=== PATIENT | female | born 1945 | race Caucasian/White ===

== ENCOUNTER → 2017-10-02 11:03 | Outpatient (CLI) | payer MEDICARE, OTHER, SELFPAY ==
--- NOTE | 2017-10-02 11:07 | DI.NM.S_ITS ---
PROCEDURE: [place] BONE SCAN WHOLE BODY RADIOPHARMACEUTICAL: 20.5 mCi Tc-99m MDP IV. INDICATIONS: BREAST CANCER TECHNIQUE: Delayed whole-body scintigrams were obtained approximately 3-4 hours after intravenous injection of radiotracer. Anterior and posterior views were acquired from vertex to feet. COMPARISON: [place], [place], BONE SCAN WHOLE BODY, 09/12/2009, 11:58. [place], BONE SCAN WHOLE BODY, 11/23/2013, 12:29. [facility], CT, NECK/CHEST/ABD/PEL W CONTRAST, 11/08/2015, 9:50. [facility], CT, CT CHEST ABD PEL W CON, 10/02/2017, 12:14. [place], BONE SCAN WHOLE BODY, 04/20/2014, 12:56. [place], BONE SCAN WHOLE BODY, 11/08/2015, 12:08. FINDINGS: No areas of relatively intense radiotracer uptake identified. Relatively subtle radiotracer uptake noted in the shoulders bilaterally, the lower lumbar spine, the left knee in the right mid foot compatible with osteoarthritis. No abnormal soft tissue uptake. Echogenic kidneys is normal and symmetric. IMPRESSION: No osseous metastatic disease. Dictated by: Aye Guzmán MD, PhD on 10/02/2017 at 15:10 Approved by: Aye Guzmán MD, PhD on 10/02/2017 at 15:14
--- NOTE | 2017-10-02 11:32 | DI.CT.S_ITS ---
PROCEDURE: CT CHEST ABD PEL W CON INDICATIONS: follow up. Breast cancer. TECHNIQUE: After the administration of oral and intravenous contrast, 5 mm thick sections acquired from the lung apices to the symphysis. 5 mm coronal and sagittal reformats were performed, with additional 7 mm coronal MIP reformats through the lungs. For radiation dose reduction, the following was used: automated exposure control, adjustment of mA and/or kV according to patient size. COMPARISON: [facility], CT, CHEST/ABD/PEL WITH CONTRAST, 04/20/2014, 9:02. FINDINGS: Image quality: Excellent. CHEST: Lungs and pleura: There is biapical scarring. No pleural effusions or pneumothorax. No discrete other nodule or mass is seen. Central and peripheral airways appear patent and normal in caliber. Mediastinum: Heart size is normal. No pericardial effusion. No mediastinal or hilar adenopathy by size criteria. Mild ascending thoracic aortic aneurysm is noted and measures up to 4.1 cm in largest AP diameter. No aortic dissection. The ascending thoracic aorta is normal in size. Pulmonary arteries are normal in size. No hiatal hernia. Chest wall: No axillary or supraclavicular adenopathy by size criteria. Surgical clips are noted in left axilla and left anterior chest wall, unchanged from prior study. Thyroid gland is within normal limits. ABDOMEN: Solid organs: Liver is normal in size. Mild hepatic steatosis is seen. No discrete hepatic lesion. Gallbladder is within normal limits. Biliary system is non dilated. Pancreas enhances normally. Spleen is normal in size and enhancement. No adrenal nodules. Kidneys demonstrate normal size and enhancement, without hydronephrosis. Peritoneum and bowel: Bowel loops demonstrate normal wall thickness and caliber. No free fluid or air. Appendix is visualized and is within normal limits. Nodes and vessels: No retroperitoneal or mesenteric adenopathy by size criteria. Aorta and inferior vena cava are normal in size. Miscellaneous: No ventral hernias. PELVIS: Genitourinary: Bladder wall thickness is normal. Miscellaneous: No inguinal hernias or adenopathy. Bones: No suspicious bony lesions. No vertebral body compression fractures. IMPRESSION: 1. No evidence of metastatic disease in chest, abdomen or pelvis. No evidence of adenopathy. 2. Biapical scarring. Bilateral lungs are otherwise clear. 3. Mild hepatic steatosis. No discrete hepatic lesion. No structural. No free fluid or free air. Dictated by: Jose Juan Hand M.D. on 10/02/2017 at 16:26 Approved by: Jose Juan Hand M.D. on 10/02/2017 at 16:32
--- NOTE | 2017-10-02 11:32 | DI.CT.S_ITS ---
PROCEDURE: CT SOFT TISSUE NECK W CON INDICATIONS: follow up TECHNIQUE: After the administration of intravenous contrast, 3.0 mm axial sections acquired from the sella to the aortic arch. Additional oblique axial 3.0 mm sections acquired through the pharynx. 3 mm thick coronal and sagittal reformats were generated. For radiation dose reduction, the following was used: automated exposure control. COMPARISON: [facility], [place], [place] BONE SCAN WHOLE BODY, 10/02/2017, 14:41. [facility], CT, NECK/CHEST/ABD/PEL W CONTRAST, 11/18/2016, 11:07. [place], [place], BONE SCAN WHOLE BODY, 11/08/2015, 12:08. [facility], CT, NECK/CHEST/ABD/PEL W CONTRAST, 11/08/2015, 9:50. [facility], CT, CT CHEST ABD PEL W CON, 10/02/2017, 12:14. FINDINGS: Image quality: Excellent. Lymph nodes: No enlarged lymph nodes seen throughout the neck. Vessels: Visualized vasculature appears patent. Partially visualized ascending thoracic aorta aneurysmal dilation measuring 40 mm, unchanged. Neck spaces: The oropharynx, nasopharynx, and pharynx demonstrate no mucosal lesions. The vocal cords, false vocal cords, pyriform sinuses, epiglottis, vallecula, and tongue base all appear normal. Extramucosal spaces appear unremarkable. Glands: The parotid and submandibular glands appear normal. Thyroid gland demonstrates stable low attenuation right lobe focus. Miscellaneous: Visualized brain and orbits appear normal. Lung apices appear clear. Superficial soft tissues appear normal. Bones: No suspicious bony lesions. Visualized sinuses and mastoids appear unremarkable. IMPRESSION: 1. Stable interval exam. No metastatic disease. 2. Partially visualized ascending thoracic artery aneurysm, unchanged. Dictated by: Kathy Silva M.D. on 10/02/2017 at 15:50 Approved by: Kathy Silva M.D. on 10/02/2017 at 16:07
== END ==
PROVIDERS: PCP Family Medicine; Visit Provider Internal Medicine Hematology & Oncology
DX: C50.911 Malignant neoplasm of unspecified site of right female breast (principal); Z17.0 Estrogen receptor positive status [ER+]; C77.0 Secondary and unspecified malignant neoplasm of lymph nodes of head, face and neck; C77.3 Secondary and unspecified malignant neoplasm of axilla and upper limb lymph nodes; I71.2 Thoracic aortic aneurysm, without rupture; K76.0 Fatty (change of) liver, not elsewhere classified
CPT/HCPCS: 70491; 71260; 74177; 78306; A9503; Q9967

== ENCOUNTER → 2018-06-25 09:32 | Outpatient (CLI) | payer MEDICARE, OTHER, SELFPAY ==
--- NOTE | 2018-06-25 09:34 | DI.CT.S_ITS ---
PROCEDURE: CT CHEST ABD PEL W CON INDICATIONS: breast cancer TECHNIQUE: After the administration of oral and intravenous contrast, 5 mm thick sections acquired from the lung apices to the symphysis. 5 mm coronal and sagittal reformats were performed, with additional 7 mm coronal MIP reformats through the lungs. For radiation dose reduction, the following was used: automated exposure control, adjustment of mA and/or kV according to patient size. COMPARISON: [facility], CT, CT CHEST ABD PEL W CON, 10/02/2017, 12:14. FINDINGS: Image quality: Excellent. CHEST: Lungs and pleura: No acute airspace opacities. Mild left anterolateral subpleural and pleural irregularity consistent with radiation changes, similar. No pleural effusions or pneumothorax. Central and peripheral airways appear patent and normal in caliber. Mediastinum: Heart size is normal. No pericardial effusion. No mediastinal or hilar adenopathy by size criteria. Thoracic aorta and central pulmonary arteries are normal in size. Esophagus is normal in caliber. No hiatal hernia. Chest wall: The left Mediport is present. A few left axillary surgical clips are seen. There are surgical changes in the left breast tissue and coarse calcifications suggesting fat necrosis in the lumpectomy bed. No unusual chest wall mass. No axillary or supraclavicular adenopathy by size criteria. Thyroid gland is normal. ABDOMEN: Solid organs: Liver is normal in size and enhancement. Gallbladder is normal. Biliary system is non dilated. Pancreas enhances normally. Spleen is normal in size and enhancement. No adrenal nodules. Kidneys demonstrate normal size and enhancement, without hydronephrosis. Peritoneum and bowel: Bowel loops demonstrate normal wall thickness and caliber. No free fluid or air. Nodes and vessels: No retroperitoneal or mesenteric adenopathy by size criteria. Aorta and inferior vena cava are normal in size. Miscellaneous: No ventral hernias. PELVIS: Genitourinary: Bladder wall thickness is normal. Mild pelvic floor laxity. Miscellaneous: No inguinal hernias or adenopathy. Bones: No suspicious bony lesions. No vertebral body compression fractures. IMPRESSION: 1. No evidence of metastatic disease in the chest, abdomen, or pelvis. 2. Surgical changes to the left chest wall without evidence of recurrent disease. Dictated by: Gricelda Patterson M.D. on 06/25/2018 at 15:53 Approved by: Gricelda Patterson M.D. on 06/25/2018 at 16:00
--- NOTE | 2018-06-25 09:34 | DI.NM.S_ITS ---
PROCEDURE: [place] BONE SCAN WHOLE BODY RADIOPHARMACEUTICAL: 21.70 mCi Tc-99m MDP IV. INDICATIONS: breast cancer TECHNIQUE: Delayed whole-body scintigrams were obtained approximately 3-4 hours after intravenous injection of radiotracer. Anterior and posterior views were acquired from vertex to feet. COMPARISON: [facility], CT, NECK/CHEST/ABD/PEL W CONTRAST, 11/18/2016, 11:07. [facility], CT, CT CHEST ABD PEL W CON, 06/25/2018, 11:37. [place], [place], [place] BONE SCAN WHOLE BODY, 10/02/2017, 14:41. FINDINGS: There is increased uptake in the lower lumbar spine (L4-L5 and L5-S1), correlating with CT finding of degenerative disc and facet disease. Increased uptake in the femoral heads bilaterally are noted, with no definitive findings on CT. The finding is, however, appears stable. No lesions are identified in skull, sternum, clavicles, scapulae, ribs, bony pelvis, and visualized shafts of the long bones. There is low level increased uptake in cervical, thoracic and lumbar spine with distribution indistinguishable from degenerative disc and facet disease; early metastasis to spine could be obscured by degenerative changes. There are foci of increased periarticular activity involving shoulders, sternoclavicular joints, elbows, wrists, hips, SI joints and left knees, compatible with degenerative/arthritic changes. IMPRESSION: 1. Stable bone scan. No definitive bone scan findings to suggest osseous metastasis. Dictated by: Armand Gudino M.D. on 06/25/2018 at 17:08 Approved by: Armand Gudino M.D. on 06/25/2018 at 17:59
== END ==
PROVIDERS: PCP Family Medicine; Visit Provider Internal Medicine Hematology & Oncology
DX: C50.919 Malignant neoplasm of unspecified site of unspecified female breast (principal); M51.36 Other intervertebral disc degeneration, lumbar region; M51.37 Other intervertebral disc degeneration, lumbosacral region
CPT/HCPCS: 71260; 74177; 78306; A9503; Q9967

== ENCOUNTER → 2018-10-29 13:02 | Outpatient (CLI) | payer MEDICARE, OTHER, SELFPAY | PROVIDERS: PCP Family Medicine; Visit Provider Internal Medicine Hematology & Oncology | DX: M85.851 Other specified disorders of bone density and structure, right thigh (principal); M85.852 Other specified disorders of bone density and structure, left thigh; M85.88 Other specified disorders of bone density and structure, other site; Z78.0 Asymptomatic menopausal state; Z85.3 Personal history of malignant neoplasm of breast | CPT/HCPCS: 77080 ==

== ENCOUNTER → 2019-02-11 10:30 | Outpatient (CLI) | payer MEDICARE, OTHER, SELFPAY ==
--- NOTE | 2019-02-11 10:32 | DI.CT.S_ITS ---
PROCEDURE: CT ANGIO CHEST INDICATIONS: shortness of breath, PE? TECHNIQUE: After the administration of intravenous contrast, 2 mm thick sections acquired from the pulmonary apices to the posterior costophrenic angles. 3-dimensional maximum intensity projection (MIP) coronal and sagittal reformats were then acquired through the thorax. For radiation dose reduction, the following was used: automated exposure control, adjustment of mA and/or kV according to patient size. COMPARISON: [facility], CT, CT CHEST ABD PEL W CON, 06/25/2018, 11:37. FINDINGS: Image quality: Excellent. Pulmonary arteries: Pulmonary arteries are normal in size, and demonstrate no intraluminal filling defects to suggest central pulmonary embolism. Lungs and pleura: The atelectasis noted in the dependent portions of the lungs. No pleural effusions or pneumothorax. Central and peripheral airways are patent. Mediastinum: Heart is enlarged without pericardial effusion. No mediastinal or hilar adenopathy. Thoracic aorta is normal in caliber and enhancement. Esophagus is normal in caliber, without hiatal hernia. Bones and chest wall: Postsurgical changes noted in the left breast and left axilla. Left chest wall Port-A-Cath noted. No suspicious bony lesions. Ribs and thoracic spine appear intact throughout. Thyroid gland is within normal limits. No axillary or supraclavicular adenopathy. Abdomen: Visualized upper abdominal solid organs appear normal in the early arterial phase of enhancement. IMPRESSION: 1. No pulmonary embolus. 2. No lung consolidation or pleural effusions. Dictated by: Aye Guzmán MD, PhD on 02/11/2019 at 11:39 Approved by: Aye Guzmán MD, PhD on 02/11/2019 at 11:44
== END ==
PROVIDERS: PCP Family Medicine; Visit Provider Internal Medicine Hematology & Oncology
DX: R06.02 Shortness of breath (principal); C50.919 Malignant neoplasm of unspecified site of unspecified female breast
CPT/HCPCS: 71275; Q9967

== ENCOUNTER → 2019-06-15 09:31 | Outpatient (CLI) | payer MEDICARE, OTHER, SELFPAY ==
--- NOTE | 2019-06-15 09:33 | DI.NM.S_ITS ---
PROCEDURE: [place] BONE SCAN WHOLE BODY RADIOPHARMACEUTICAL: 21.3 mCi Tc-99m MDP IV. INDICATIONS: metastatic breast cancer TECHNIQUE: Delayed whole-body scintigrams were obtained approximately 3-4 hours after intravenous injection of radiotracer. Anterior and posterior views were acquired from vertex to feet. COMPARISON: [facility], , L-SPINE W&WO CONTRAST, 04/21/2017, 11:58. [facility], CT, CT CHEST ABD PEL W CON, 06/25/2018, 11:37. [facility], CT, CT CHEST ABD PEL W CON, 10/02/2017, 12:14. [place], [place], [place] BONE SCAN WHOLE BODY, 10/02/2017, 14:41. [place], [place] BONE SCAN WHOLE BODY, 06/25/2018, 13:12. [facility], CT, CT CHEST ABD PEL W CON, 06/15/2019, 10:28. FINDINGS: Hyperostosis frontalis. Foci of increased uptake in the lower lumbar appear unchanged correlating with CT finding of degenerative disc and facet disease. Increased uptake in the femoral heads appears stable. No lesions are identified in skull, sternum, clavicles, scapulae, ribs, bony pelvis, and visualized shafts of the long bones. There is low level increased uptake in cervical, thoracic and lumbar spine with distribution indistinguishable from degenerative disc and facet disease; early metastasis to spine could be obscured by degenerative changes. There are foci of increased periarticular activity involving shoulders, sternoclavicular joints, elbows, IMPRESSION: Stable bone scan. No definitive findings to suggest osseous metastasis. Dictated by: Armand Gudino M.D. on 06/15/2019 at 15:47 Approved by: Armand Gudino M.D. on 06/15/2019 at 16:14
--- NOTE | 2019-06-15 10:43 | DI.CT.S_ITS ---
PROCEDURE: CT CHEST ABD PEL W CON INDICATIONS: metastatic breast cancer STAGING TECHNIQUE: After the administration of oral and intravenous contrast, 5 mm thick sections acquired from the lung apices to the symphysis. 5 mm coronal and sagittal reformats were performed, with additional 7 mm coronal MIP reformats through the lungs. For radiation dose reduction, the following was used: automated exposure control, adjustment of mA and/or kV according to patient size. COMPARISON: [facility], [place], [place] BONE SCAN WHOLE BODY, 06/25/2018, 13:12. [facility], CT, CT CHEST ABD PEL W CON, 06/25/2018, 11:37. [facility], CT, CT ANGIO CHEST, 02/11/2019, 10:54. FINDINGS: Image quality: Excellent. CHEST: Lungs and pleura: No acute airspace opacities. A 3 mm subpleural right upper lobe pulmonary nodule is stable. There is minimal postradiation fibrosis in the anterior aspect of the left upper lobe. No pleural effusions or pneumothorax. Central and peripheral airways appear patent and normal in caliber. Mediastinum: Heart size is normal. No pericardial effusion. No mediastinal or hilar adenopathy by size criteria. Borderline aneurysmal dilatation of the ascending aorta, measuring 4.1 cm. This is not significantly changed. Central pulmonary arteries are normal in size. Esophagus is normal in caliber. No hiatal hernia. Chest wall: No axillary or supraclavicular adenopathy by size criteria. Thyroid gland is unremarkable. Port-A-Cath in satisfactory position. Postsurgical findings in the left breast. ABDOMEN: Solid organs: Liver is normal in size and enhancement. Gallbladder is unremarkable. Biliary system is non dilated. Pancreas enhances normally. Spleen is normal in size and enhancement. No adrenal nodules. Kidneys demonstrate normal size and enhancement, without hydronephrosis. Peritoneum and bowel: Bowel loops demonstrate normal wall thickness and caliber. No free fluid or air. Nodes and vessels: No retroperitoneal or mesenteric adenopathy by size criteria. Aorta and inferior vena cava are normal in size. Miscellaneous: No ventral hernias. PELVIS: Genitourinary: Bladder wall thickness is normal. Miscellaneous: No inguinal hernias or adenopathy. Bones: There is a lucent lesion in the left side of the S1 vertebral body measuring approximately 1.6 cm in diameter which was not identifiable on the previous study, possibly representing a metastatic lesion. Alternatively, it may potentially represent development of a large subchondral cyst. There is a Schmorl's node in the right superior aspect of the L5 vertebral body which has increased in size since the previous study. This is not a metastatic lesion. A subtle lucent lesion in the medial left iliac bone on image 95/2 is stable, and is unlikely a metastatic lesion. No other bony lesions identified. No vertebral body compression fractures. IMPRESSION: 1. Stable 3 mm pulmonary nodule, right upper lobe. 2. No evidence of metastatic disease in the chest. 3. Development of a lucent area in the S1 vertebral body measuring 1.6 cm, possibly representing a metastatic lesion or a subchondral cyst. 4. No other evidence of metastatic disease in the abdomen and pelvis. Comment: It is noted that the patient is scheduled to undergo a whole-body bone scan later today. Dictated by: Vernon Luo M.D. on 06/15/2019 at 10:43 Approved by: Vernon Luo M.D. on 06/15/2019 at 11:03
== END ==
PROVIDERS: PCP Family Medicine; Referring Provider Internal Medicine Hematology & Oncology; Visit Provider Internal Medicine Hematology & Oncology
DX: C50.011 Malignant neoplasm of nipple and areola, right female breast (principal); R91.1 Solitary pulmonary nodule; M89.9 Disorder of bone, unspecified; M51.46 Schmorl's nodes, lumbar region; Z17.0 Estrogen receptor positive status [ER+]
CPT/HCPCS: 71260; 74177; 78306; A9503; Q9967

== ENCOUNTER → 2019-08-06 07:47 | Outpatient (CLI) | payer MEDICARE, OTHER, SELFPAY ==
--- NOTE | 2019-08-06 07:49 | DI.ECHO.S_ITS ---
[place] [facility]---------+ [facility] +---------+ : : [address] : : : : [id number] : : : : Phone: [phone]+ Echocardiogram Report + + :Name: RENÉE AZEVEDO ALTA J Study Date: 08/06/2019 Height: 64 in : :[facility] Weight: 175 lb : : Gender: Female BSA: 1.8 m2 : :: 1945 Age: 73 yrs BP: 139/82 mmHg: :Reason For Study: Breast cancer/ Palpitations : : Performed By: Jen Page : :Referring: EVAN GALLARDO : + + Interpretation Summary The left ventricle is normal in size and wall thickness. Left ventricular global longitudinal strain average is -18.6%. The ejection fraction is estimated to be 60-65%. There has been no significant change since the previous exam. There are no focal wall motion abnormalities. The right ventricle is mildly dilated. The right ventricular systolic function is normal. The right ventricular systolic pressure is estimated to be at least 25 mmHg based on an estimated right atrial pressure of 3 mm Hg. The left atrium is moderately dilated. Right atrial size is normal. There is no significant valvular heart disease. The ascending aorta is mild-moderately enlarged. This is an increase compared to the previous study. Prior measurement was 3.3 cm and now it is 4.0 cm. The aortic arch is mildly enlarged. Procedure: A two-dimensional transthoracic echocardiogram with color flow and Doppler was performed. The study quality was technically adequate. Comparison is made with the echocardiogram of 05/18/2014. The patient was in normal sinus rhythm during the exam. The patient had occasional PVCs during the exam. Left Ventricle: The left ventricle is normal in size and wall thickness. Left ventricular global longitudinal strain average is -18.6%. The ejection fraction is estimated to be 60-65%. There has been no significant change since the previous exam. There are no focal wall motion abnormalities. Diastolic parameters suggest probable normal left ventricular diastolic function and normal filling pressures. Right Ventricle: The right ventricle is mildly dilated. The right ventricular systolic function is normal. Atria: The left atrium is moderately dilated. Right atrial size is normal. There is no Doppler evidence for an interatrial shunt. Mitral Valve: The mitral valve is normal in structure and function. There is trace mitral regurgitation. Aortic Valve: The aortic valve is trileaflet. There is mild aortic valve sclerosis. There is no aortic valve stenosis. There is trace aortic regurgitation. Tricuspid Valve: The tricuspid valve is normal in structure and function. There is trace tricuspid regurgitation. The right ventricular systolic pressure is estimated to be at least 25 mmHg based on an estimated right atrial pressure of 3 mm Hg. Pulmonic Valve: The pulmonic valve is not well seen, but is grossly normal. There is trace pulmonic regurgitation. There is no significant valvular heart disease. Great Vessels: The aortic root is normal size. The ascending aorta is mild- moderately enlarged. This is an increase compared to the previous study. The aortic arch is mildly enlarged. The pulmonary artery is not well visualized, but is probably normal size. The IVC is of normal diameter and collapses greater than 50% with a sniff. This suggests a low right atrial pressure of 3 mm Hg. Pericardium/ Pleura There is no pericardial effusion. There is no pleural effusion. MMode/2D Measurements & Calculations LVIDd: 4.6 cm LVOT diam: 1.9 cm LVIDs: 2.8 cm Ao root diam: 3.3 cm FS: 39.1 % asc Aorta Diam: 4.0 cm IVSd: 0.80 cm Ao Arch Diam (Prox Trans): 3.6 cm LVPWd: 0.62 cm LV escamilla. diameter/BSA (cm/m^2): 2.5 LV sys. diameter/BSA (cm/m^2): 1.5 LA A2 area: 21.5 cm2 RA long axis: 4.9 cm LA A4 area: 23.3 cm2 RA area: 15.4 cm2 LA length (vol): 5.1 cm RA vol: 41.4 ml LA vol: 83.5 ml RA : 22.4 ml/m2 LA vol index: 45.2 ml/m2 RVD1 (basal): 3.9 cm RVD2 (mid): 4.3 cm TAPSE: 1.8 cm Doppler Measurements & Calculations Ao V2 max: 179.3 cm/sec LVOT Max Chuy: 107.6 cm/sec Ao V2 mean: 127.1 cm/sec LV V1 max P.6 mmHg Ao max P.9 mmHg LV V1 VTI: 24.4 cm Ao mean P.1 mmHg MARGARETH(I,D): 1.8 cm2 Ao V2 VTI: 38.8 cm MARGARETH(V,D): 1.7 cm2 sev ratio: 0.63 MARGARETH indexed to BSA (cm^2/m^2): 0.97 MV E max chuy: 92.5 cm/sec TR max chuy: 236.5 cm/sec MV A max chuy: 89.1 cm/sec TR max P.4 mmHg MV E/A: 1.0 PA V2 max: 80.6 cm/sec Med Peak E' Chuy: 6.8 cm/sec PA V2 mean: 60.4 cm/sec E/E' med: 13.5 PA mean P.5 mmHg Lat Peak E' Chuy: 9.7 cm/sec PA pr(Accel): 41.7 mmHg E/E' lat: 9.5 E/e' average: 11.5 MV dec time: 0.26 sec SV(LVOT): 69.4 ml Reading Physician:04:41 PM
== END ==
PROVIDERS: PCP Family Medicine; Referring Provider Internal Medicine Hematology & Oncology; Visit Provider Internal Medicine Hematology & Oncology
DX: I35.8 Other nonrheumatic aortic valve disorders (principal); I77.89 Other specified disorders of arteries and arterioles; R00.2 Palpitations; C50.011 Malignant neoplasm of nipple and areola, right female breast; Z17.0 Estrogen receptor positive status [ER+]
CPT/HCPCS: 93306

== ENCOUNTER → 2019-12-01 09:35 | Outpatient (CLI) | payer MEDICARE, OTHER, SELFPAY ==
--- NOTE | 2019-12-01 10:20 | DI.NM.S_ITS ---
PROCEDURE: [place] BONE SCAN WHOLE BODY RADIOPHARMACEUTICAL: 19.1 mCi Tc-99m MDP IV. INDICATIONS: metastatic breast cancer TECHNIQUE: Delayed whole-body scintigrams were obtained approximately 3-4 hours after intravenous injection of radiotracer. Anterior and posterior views were acquired from vertex to feet. COMPARISON: [facility], CT, CT CHEST ABD PEL W CON, 06/25/2018, 11:37. [facility], CT, NECK/CHEST/ABD/PEL W CONTRAST, 11/18/2016, 11:07. [facility], [place], L-SPINE W&WO CONTRAST, 04/21/2017, 11:58. [place], [place], [place] BONE SCAN WHOLE BODY, 10/02/2017, 14:41. [place], [place] BONE SCAN WHOLE BODY, 06/25/2018, 13:12. [facility], CT, CT CHEST ABD PEL W CON, 06/15/2019, 10:28. [place], [place] BONE SCAN WHOLE BODY, 06/15/2019, 13:01. FINDINGS: Foci of increased uptake in lumbar spine and sacrum are unchanged over time, indication lumbar from degenerative changes. No lesions are identified in skull, sternum, clavicles, scapulae, ribs, bony pelvis, and visualized shafts of the long bones. There are foci of increased periarticular activity involving shoulders, sternoclavicular joints, elbows, wrists, hands, hips, SI joints, knees, ankles and feet, compatible with degenerative/arthritic changes. IMPRESSION: Stable bone scan. No definitive scintigraphic findings for osseous metastasis. Increased uptake in the lumbar spine and sacrum appears stable. If clinical suspicion for metastasis in S1 body is high, MRI with and without contrast may be helpful since degenerative changes could obscure early metastasis on bone scan. Dictated by: Armand Gudino M.D. on 12/01/2019 at 17:26 Approved by: Armand Gudino M.D. on 12/01/2019 at 17:43
== END ==
PROVIDERS: PCP Family Medicine; Referring Provider Internal Medicine Hematology & Oncology; Visit Provider Internal Medicine Hematology & Oncology
DX: C50.011 Malignant neoplasm of nipple and areola, right female breast (principal)
CPT/HCPCS: 78306; A9503

== ENCOUNTER → 2019-12-27 11:06 | Outpatient (CLI) | payer MEDICARE, OTHER, SELFPAY ==
--- NOTE | 2019-12-27 | DI.MRI.S_ITS ---
PROCEDURE: MR LUMBAR SPINE WO/W CON INDICATIONS: METASTATIC BREAST CANCER TECHNIQUE: Noncontrast sagittal T1 spin echo and T2 fast spin echo, sagittal STIR, axial T1 and T2 fast spin echo through the lumbar spine. In cases with scoliosis, additional coronal T2 fast spin echo may be performed. After the administration of contrast, sagittal and axial T1 spin echo with fat saturation through the lumbar spine. COMPARISON: [facility], MR, L-SPINE W&WO CONTRAST, 04/21/2017, 11:58. [facility], CT, CT CHEST ABD PEL W CON, 06/15/2019, 10:28. [facility], [place], [place] BONE SCAN WHOLE BODY, 12/01/2019, 14:15. [place], [place], [place] BONE SCAN WHOLE BODY, 06/15/2019, 13:01. FINDINGS: Image quality: Excellent. Alignment and curvature: There is trace L 4-L5 and L5-S1 anterolisthesis. Mild convex left curvature of the lumbar spine. Marrow: There is a 1.6 centimeter in diameter rounded lesion in the left margin of the S1 vertebral body which demonstrates hypointense T1 signal, hyperintense T2 signal and post-contrast enhancement. Lesion corresponds to lucency identified by prior CT scan obtained June 15, 2019. No acute vertebral body compression fractures. Mild reactive endplate changes noted adjacent to the L4-L5 and L5-S1 discs. Small Schmorl's node noted in the superior endplate of the L5 vertebral body. Spinal cord: Conus medullaris terminates at the L1 level. Visualized spinal cord demonstrates normal signal, without suspicious enhancement. Paraspinous soft tissues: No paravertebral masses or abnormal enhancement. Multilevel degenerative disc changes noted. Multilevel facet hypertrophy. No significant central canal narrowing. Moderate to severe left L5-S1 neural foraminal narrowing with slight compression of the exiting left L5 nerve root. IMPRESSION: 1. 1.6 centimeter enhancing lesion in the left margin of the S1 vertebral body corresponds to lytic lesion identified by prior CT scan obtained June 15, 2019 and is new compared to prior MRI obtained April 21, 2017. Lesion is highly suspicious for osseous metastatic disease. 2. Multilevel degenerative disease. 3. Multilevel facet arthropathy. 4. No significant central canal narrowing. 5. Moderate to severe left L5-S1 neural foraminal narrowing with slight compression of the exiting left L5 nerve root. Dictated by: Aye Guzmán MD, PhD on 12/27/2019 at 14:23 Approved by: Aye Guzmán MD, PhD on 12/27/2019 at 14:35
== END ==
PROVIDERS: PCP Family Medicine; Referring Provider Internal Medicine Hematology & Oncology; Visit Provider Internal Medicine Hematology & Oncology
DX: C50.111 Malignant neoplasm of central portion of right female breast (principal); C77.8 Secondary and unspecified malignant neoplasm of lymph nodes of multiple regions; M89.9 Disorder of bone, unspecified; M51.36 Other intervertebral disc degeneration, lumbar region; M47.816 Spondylosis without myelopathy or radiculopathy, lumbar region; M48.07 Spinal stenosis, lumbosacral region
CPT/HCPCS: 72158; A9579

== ENCOUNTER → 2020-02-01 11:00 | Outpatient (CLI) | payer MEDICARE, OTHER, SELFPAY ==
[2020-02-01 11:35] LABS: COVID19 -Nasal RAPID Negative (Negative)
== END ==
PROVIDERS: PCP Family Medicine; Visit Provider Physician Assistant
DX: Z11.59 Encounter for screening for other viral diseases (principal)
CPT/HCPCS: 87635

== ENCOUNTER → 2020-02-03 11:36 | Outpatient (CLI) | payer MEDICARE, OTHER, SELFPAY ==
--- NOTE | 2020-02-03 11:38 | DI.RAD.S_ITS ---
PROCEDURE: XR CHEST 2V INDICATIONS: cough x1 month TECHNIQUE: 2 views of the chest were acquired. COMPARISON: [facility], , CHEST 1 VIEW, 11/16/2013, 16:00. FINDINGS: Surgical changes and devices: Left chest Port-A-Cath is seen in stable position tip of superior cavoatrial junction. Surgical clips are seen projecting over the left chest. Lungs and pleura: Lungs are clear. No pleural effusions or pneumothorax. Mediastinum: Mediastinal contours are normal. Heart size is normal. Bones and chest wall: No suspicious bony abnormalities. Soft tissues appear unremarkable. IMPRESSION: No acute cardiopulmonary abnormality Dictated by: Ernesto Arnold M.D. on 02/03/2020 at 10:50 Approved by: Ernesto Arnold M.D. on 02/03/2020 at 10:53
== END ==
PROVIDERS: PCP Family Medicine; Referring Provider Physician Assistant; Visit Provider Physician Assistant
DX: R05 Cough (principal); J06.9 Acute upper respiratory infection, unspecified; Z95.828 Presence of other vascular implants and grafts
CPT/HCPCS: 71046

== ENCOUNTER → 2020-05-10 09:04 | Outpatient (CLI) | payer MEDICARE, OTHER, SELFPAY ==
--- NOTE | 2020-05-10 09:06 | DI.NM.S_ITS ---
PROCEDURE: [place] BONE SCAN WHOLE BODY RADIOPHARMACEUTICAL: 20 mCi Tc-99m MDP IV. INDICATIONS: metastatic breast cancer, new right shoulder pain TECHNIQUE: Delayed whole-body scintigrams were obtained approximately 3-4 hours after intravenous injection of radiotracer. Anterior and posterior views were acquired from vertex to feet. COMPARISON: [place], [place] BONE SCAN WHOLE BODY, 12/01/2019, 14:15. [place] BONE SCAN WHOLE BODY, 10/02/2017, 14:41. [place] BONE SCAN WHOLE BODY, 06/25/2018, 13:12. [place] BONE SCAN WHOLE BODY, 06/15/2019, 13:01. [facility], MR, MR LUMBAR SPINE WO/W CON, 12/27/2019, 11:26. [place], [place] PET CT FUSION SKULL 2 THIGH, 01/26/2020, 13:35. FINDINGS: Hyperostosis frontalis. No focal lesions are identified in skull, sternum, clavicles, scapulae, ribs, bony pelvis, and visualized shafts of the long bones. There is mild scoliosis. Foci of increased uptake in lumbar spine projecting to the right L4-L5 and left L5-S1 facet joints, compatible with degenerative facet disease; early metastasis to spine could be obscured by degenerative changes. Low-level increased uptake in thoracic spine is most likely related to degenerative disc disease. There are foci of increased periarticular activity, compatible with degenerative/arthritic changes. IMPRESSION: 1. Stable bone scan. The lesion in left S1 area seen on the comparison CT and MRI is not conspicuous on bone scan exam. 2. Degenerative changes as described. Dictated by: Armand Gudino M.D. on 05/10/2020 at 13:18 Approved by: Armand Gudino M.D. on 05/10/2020 at 17:59
== END ==
PROVIDERS: PCP Family Medicine; Referring Provider Internal Medicine Hematology & Oncology; Visit Provider Internal Medicine Hematology & Oncology
DX: C50.011 Malignant neoplasm of nipple and areola, right female breast (principal); M25.511 Pain in right shoulder
CPT/HCPCS: 78306; A9503

== ENCOUNTER → 2020-07-24 11:02 | Outpatient (CLI) | payer MEDICARE, OTHER, SELFPAY ==
--- NOTE | 2020-07-24 | DI.MRI.S_ITS ---
PROCEDURE: MR SHOULDER RT WO CON INDICATIONS: Pain in right shoulder TECHNIQUE: Noncontrast oblique coronal T2 fast spin echo with fat saturation, oblique sagittal T1 spin echo and T2 fast spin echo with fat saturation, axial T1 spin echo and T2 fast spin echo with fat saturation through the shoulder. COMPARISON: [facility] [place], [place], XR SHOULDER 2+ VIEWS RIGHT, 07/12/2020, 14:41. FINDINGS: Image quality: Limited by patient positioning factors and motion artifact Rotator cuff: There is moderate T2 signal elevation within the subscapularis and throughout the supraspinatus tendons at the humeral insertion sites, indicating tendinopathy. Superimposed high-grade intrasubstance tearing of the anterior supraspinatus tendon at the humeral insertion site measuring roughly 10 mm anteroposterior. Superimposed low-grade partial-thickness intrasubstance tearing of the mid and posterior supraspinatus tendon at the humeral insertion site extending to the musculotendinous junction. There is low-grade partial-thickness articular surface tearing of the anterior infraspinatus tendon at the humeral insertion site extending to the musculotendinous junction. There is moderate grade bursal surface tearing of the mid subscapularis tendon at the humeral insertion site extending to the musculotendinous junction. Bones and bursae: No bone marrow contusions or fractures. Subchondral degenerative marrow edema within the superior glenoid. Moderate acromioclavicular joint degeneration. The acromion demonstrates conventional anatomy, without an os acromiale. A small amount of subacromial-subdeltoid or subcoracoid bursal fluid is present. Capsule and soft tissues: Labrum is grossly unremarkable. The long head of the biceps tendon demonstrates grossly normal location and morphology. The rotator interval appears normal, without fibrosis. The coracohumeral ligament is normal in thickness. IMPRESSION: 1. Tendinopathy of the supraspinatus and subscapularis tendons. 2. Superimposed high-grade intrasubstance tearing of the supraspinatus, and low-grade tearing of the remainder of the supraspinatus. 3. Moderate grade partial thickness tearing of the subscapularis. Low-grade partial-thickness tearing of the infraspinatus. 4. Acromioclavicular joint osteoarthritis. 5. Subacromial bursitis. Dictated by: Javier Leo M.D. on 07/24/2020 at 14:17 Approved by: Javier Leo M.D. on 07/24/2020 at 14:21
== END ==
PROVIDERS: PCP Family Medicine; Referring Provider Physical Medicine & Rehabilitation Pain Medicine; Visit Provider Physical Medicine & Rehabilitation Pain Medicine
DX: M25.511 Pain in right shoulder (principal); M75.111 Incomplete rotator cuff tear or rupture of right shoulder, not specified as traumatic; M19.011 Primary osteoarthritis, right shoulder; M75.51 Bursitis of right shoulder
CPT/HCPCS: 73221

== ENCOUNTER → 2020-08-15 07:33 | Outpatient (CLI) | payer MEDICARE, OTHER, SELFPAY ==
[2020-08-15 09:24] LABS: Vitamin D 25 Hydroxy (D3) 44.7 ng/mL (30.0-100.0)
[2020-08-15 09:26] LABS: Free T3, Triiodothyronine Free 3.58 pg/mL (2.77-5.27); Free T4, Direct Thyroxine 1.19 ng/dL (0.78-2.19)
[2020-08-15 09:39] LABS: Thyroid Stimulating Hormone 2.92 uIU/mL (0.47-4.68)
[2020-08-15 09:57] LABS: Vitamin B12 456 pg/mL (239-931)
[2020-08-15 11:55] LABS: Cholesterol 170 mg/dL (140-199); HDL Cholesterol 49 mg/dL (40-60); LDL Cholesterol Calculated 92 mg/dL (<100); Triglycerides 147 mg/dL (35-150)
[2020-08-15 12:10] LABS: T7 (Free Thyroxine Index) 3.04 (1.65-3.89); Triiodothryronine T3 Uptake 32.3 % (23.5-40.5)
== END ==
PROVIDERS: PCP Family Medicine; Referring Provider Family Medicine; Visit Provider Family Medicine
DX: C50.919 Malignant neoplasm of unspecified site of unspecified female breast (principal); E03.9 Hypothyroidism, unspecified; E55.9 Vitamin D deficiency, unspecified; E78.2 Mixed hyperlipidemia; R00.2 Palpitations; R53.81 Other malaise
CPT/HCPCS: 36415; 80061; 82306; 82607; 84436; 84439; 84443; 84479; 84481

== ENCOUNTER → 2020-11-15 11:46 | Outpatient (CLI) | payer MEDICARE, OTHER, SELFPAY ==
[2020-11-15 13:10] LABS: COVID19 -Nasal RAPID Negative (Negative)
== END ==
PROVIDERS: PCP Family Medicine; Visit Provider Nurse Practitioner Family
DX: Z20.822 Contact with and (suspected) exposure to COVID-19 (principal)
CPT/HCPCS: 87635; C9803

== ENCOUNTER 2020-11-16 06:02 | Day surgery (SDC) | payer MEDICARE, OTHER, SELFPAY ==
[2020-11-14 08:04] VITALS: BMI 29.3
[2020-11-16] VITALS (15 sets, daily range): BP systolic 132–159; BP diastolic 59–85; PULSE 66–95; RESP 9–20; TEMP 35.9–36.7; O2SAT 91–100; BMI 29.2
--- NOTE | 2020-11-16 | DI.RAD.S_ITS ---
PROCEDURE: XR CHEST 1V INDICATIONS: crackles r base TECHNIQUE: One view of the chest was acquired. COMPARISON: [facility], , XR CHEST 2V, 02/03/2020, 11:42. FINDINGS: Surgical changes and devices: Left chest wall port is well positioned. Lungs and pleura: The chest demonstrates elevation of the right hemidiaphragm and compressive atelectasis of the right lower lobe. No pneumothorax or pleural effusion. Mediastinum: Mediastinal contours appear normal. Heart size is normal. Bones and chest wall: No suspicious bony lesions. Overlying soft tissues appear unremarkable. IMPRESSION: Elevation of the right hemidiaphragm is new compared to the prior x-ray and there is adjacent compressive atelectasis. Dictated by: Maurilio Haines M.D. on 11/16/2020 at 15:13 Approved by: Maurilio Haines M.D. on 11/16/2020 at 15:15
[2020-11-16] MEDS: LACTATED RINGERS 1,000 ML 42 ML IV ×2 (07:01→14:59)
--- NOTE | 2020-11-16 07:38 | PM.PREOP ---
Pre-operative Note Interval Note History & Physical reviewed/Exam performed by Physician: Yes Changes to H&P: No
[2020-11-16] MEDS: CEFAZOLIN 1 GM VIAL 2 GM IV (08:03)
--- NOTE | 2020-11-16 08:20 | SUR.OPER ---
Beach chair with Silverio/Stan shoulder positioner. Lower body on padded OR bed. Head in foam padded head cradle, secured with straps. Non-operative arm secured <90 degrees abduction. Pillow under knees. Safety belt at thigh. Cloth tape over blanket over lower legs.
[2020-11-16] MEDS: BUPIVACAINE 0.5% (PF) VIAL 30 ML INJ (08:28)
[2020-11-16] MEDS: EPINEPHrine 1 MG/ML 0.15 MG INJ ×2 (08:29→08:30)
--- NOTE | 2020-11-16 09:04 | P.OP_ITS ---
Operative Date/Time/Diagnoses Date of procedure: 11/16/20 Time of procedure: 08:00 Pre-op diagnosis: Right shoulder partial rotator cuff tear with subacromial impingement and AC joint arthritis Post-op diagnosis: same (Proximal biceps rupture) Procedure & Clinicians Procedure: Right shoulder arthroscopic extensive debridement with subacromial decompression and distal clavicle excision as well as a suprascapular nerve block. CPT 67572, 85769, 83268, [id number] Same procedure as scheduled: Yes Indications: Right shoulder partial rotator cuff tear with impingement and AC joint arthritis Surgeon: Yosvany Harrell Bobbin Cleaner Hand: Liz Mccurdy Anesthesia Type: General Operative Notes Findings: Signs of a previous proximal biceps rupture with cm of remaining biceps tendon still in the joint. No sign of any significant arthritic changes to the glenohumeral joint. Still good maintenance of cartilage with no sign of any full-thickness cartilage loss. Degenerative changes throughout the labrum consistent with age. The majority of the undersurface of the rotator cuff was free of any signs of significant tearing. Subacromial space had quite a bit of bursitis and synovitis as well as the subdeltoid space. Impingement lesions in the acromial arch as well as AC joint arthritis with inferior osteophytes. Most anterior portion of the supraspinatus had some signs of high-grade partial tearing. Infraspinatus and subscapularis free of any significant rotator cuff pathology. Closure Type: primary Specimen(s): none sent Estimated Blood Loss (mL): 5 Procedure in detail: On date of service, Patient was met in the holding area. The operative site was signed and witnessed by the OR staff. The surgeries once again discussed with the patient and any remaining questions they had were answered fully. Patient was taken back to the operating theater and placed on the operating table in a supine position. Great care was taken to ensure that all bony prominences were properly padded. Patient was then placed into the beach chair position. The head and neck were properly positioned and secured. A timeout was performed verifying patient's name, procedure, and the operative site. The upper extremity was then prepped and draped in the normal sterile fashion. Previously, the bony anatomy and portal sites were marked out as well as injected with Marcaine with epinephrine. An 11 blade was used to make an incision in the posterior aspect of the shoulder. The camera was placed, and a diagnostic shoulder scope was performed. Findings listed above. Next under direct visualization, a anterior portal was made. Shaver was placed into the anterior portal and a extensive debridement of the glenohumeral joint was performed. Shaver was used to debride the degenerative changes throughout the labrum as well as the remaining biceps tendon and I was still attached to the superior labrum. Combination of shaver and vapor was used to release it from the superior labrum and a grasper was then used to remove about a cm length piece of biceps tendon. Majority of the undersurface of the rotator cuff was free of any signs of any significant partial tearing. Next the camera was placed into the subacromial space. A lateral portal was obtained under direct visualization. A combination of the shaver and vapor wand, a debridement of the inflamed tissue as well as inflamed bursa was performed. The lateral gutter was also cleaned out. This gave us good visualization of the bursal aspect of the rotator cuff as well as the acromial arch. There was an obvious impingement lesion in the acromial arch. Next we turned our attention to the subacromial decompression. Next, a jyoti was then used to do a subacromial decompression. This allowed us to convert the acromion to a type I acromial. This also allowed us to shave down the bony lesion in the acromial space. The rasp was placed into the lateral portal as well as the anterior portal in order to do a complete subacromial decompression. We next turned our attention to the distal clavicle. Using the shaver and the vapor wand we were able to clean out all the soft tissue around the distal clavicle as well as into the a.c. joint. This gave us good visualization of the arthritic changes to the distal clavicle as well as good visualization of the inferior osteophytes coming off the distal clavicle. Using the jyoti in the anterior portal, we were able to remove the inferior osteophytes as well as do a distal clavicle excision removing 3-4 mm of bone. The camera was then placed into the anterior portal which gave us a direct visualization of the a.c. joint allowing us to assess the distal clavicle excision. We then turned our attention to the rotator cuff tear. Shaver was used to debride once again any fraying or partial tearing to the superior portion of the rotator cuff. Also used to remove any remaining synovitis and inflamed bursal tissue. There is some signs of higher grade partial tearing to the supraspinatus. The majority of that tissue was quite friable and really was not repairable. Shaver was used to debride out any tearing to try to get down to as much healthy tissue as possible without overly weakening the tendon. Shoulder was then taken through range of motion and there was no sign of any additional impingement. Next, the suprascapular nerve was blocked. Patient's shoulder was then cleaned dried and dressed and patient was taken to the PACU in stable condition. Complications: none Post-operative Condition: stable Disposition: PACU Plan for aftercare: Sling is just for comfort. Patient will begin physical therapy in the next few days. No restrictions range of motion. Patient will follow our postoperative protocol for subacromial decompression.
[2020-11-16] MEDS: HYDROMORPHONE 2 MG INJ IV ×2 (09:22→09:42)
--- NOTE | 2020-11-16 09:36 | SUR.PHASEI ---
Received to PACU after general anesthesia. Airway patent, self maintained. Report from RAMESH Mejias and Dr Ramirez. Temp 96.7 - Placed on Conner Hugger.
[2020-11-16] MEDS: OXYCODONE IR 5 MG TABLET PO (09:56)
[2020-11-16] MEDS: ACETAMINOPHEN 325 MG TABLET 975 MG PO (09:56)
--- NOTE | 2020-11-16 10:28 | SUR.PHASEII ---
Instructed on incentive spirometer. Pt was able to get up to 2250.
--- NOTE | 2020-11-16 10:55 | SUR.PHASEII ---
Assumed care of pt from Marilee, room air sats 85-89%, worked on insentive spirometer, gets up to 15-1800. Pt sleepy, lungs clear posteriorly and anteriorly. When awake sats 90% on room air, when she falls asleep sats go down as low as 85%.
--- NOTE | 2020-11-16 12:09 | SUR.PHASEII ---
Block start time [1220] . Monitoring initiated and maintained throughout procedure. Oxygen and medications given per anesthesiologist instructions. Patient remained stable throughout procedure, no adverse reactions noted. Block end time [1230].pt had no sedation medication and did very well. Pt states pain has decreased from 8 to a 2.
--- NOTE | 2020-11-16 13:55 | SUR.PHASEII ---
Pt remains on continuious pulse ox, multiple room air trials done and pt still drops down to 86%. Pt denies any pain post block. Dr. Rmairez again informed of failed room air trials, lungs remain clear. Albuterol ordered and administered.
[2020-11-16] MEDS: ALBUTEROL 2.5 MG/3 ML NEB (ADULT) INH (13:59)
--- NOTE | 2020-11-16 14:03 | SUR.PHASEII ---
also called and updated multiple times throughout stay here.
[2020-11-16] MEDS: ONDANSETRON 4 MG/2 ML INJ IV ×2 (14:53→16:10)
--- NOTE | 2020-11-16 15:02 | P.PCN_ITS ---
Procedures Date/Time Date of procedure: 11/16/20 Time of procedure: 12:25 Nerve Block Time out performed: Yes Local anesthetic used: other (7mL 0.5% ropivacaine, 8mL NS, 5mL 1% lidocaine w/epi) Location of anesthetic used: interscalene Amount of anesthesia used (mL): 20 Nerve blocks: brachial plexus (interscalene) Procedure successful: Yes Patient tolerated procedure: well Complications: none Additional comments: Pt with inadequate pain control post-op, PaO2 mid-upper 80's to low 90's on RA, mildly sleepy but not sedated in Phase II recovery. Concern for more sedation/respiratory depression with more narcotic. Had discussed possibility of block with pt pre-op, but deferred until post-op to assess pain control. Pt had reported mild SOB when supine and mild CROOK at baseline. Denied changes/worsening over last several weeks. With likely i nclusion of phrenic nerve with brachial plexus block, I decided to wait. With low PaO2 and concern for central respiratory depression with more narcotic, I opted for brachial plexus block for post-op shoulder pain. No history of respiratory disease. Pt had received 30mL of 0.5% bupiv in subacromial space and some intraarticular by surgeon. Reduced dose of LA was therefore used for IS block. Procedure performed as follows. Brachial plexus nerve block for post operative pain management. Risks and benefits discussed, including bleeding, infection, intravascular injection, nerve damage, block failure. Standard ASA monitors, NC O2. Pt supine. Chloroprep site preparation, sterile technique. Brachial plexus identified with US guidance, traced from supraclavicular to interscalene. 1mL 2% lidocaine skin wheal. 22g x 50mm Pajunk advanced with in-plane US guidance to brachial plexus. Negative aspiration. LA injected with intermittent negative aspiration. Good LA spread noted on US. No pain, no paraesthesia. Pt tolerated procedure well. Vital signs stable.
--- NOTE | 2020-11-16 15:09 | SUR.PHASEII ---
Pt with crackles R base, still drops sats on room air, Dr. Ramirez notified , cxr obtained, pt up to BSC, weak, steady voided clear yellow urine. then became nauseated, medicated with ondansetron.
--- NOTE | 2020-11-16 15:58 | PM.EVENT ---
Event Note Date Patient Seen: 11/16/20 Time Patient Seen: 15:58 Event Note: Prolonged PACU stay due to low PaO2, mid-upper 80's to low 90's on RA. Pt given albuterol nebulized, incentive spiromotry. Post-op interscalene block performed, with anticipated dimished BS RLL. Crackles were also noted RLL, so CXR was performed, showing anticipated elevated R hemidiaphragm with atalectasis. Pt remains afebrile, with VSS otherwise normal. After several hours, PaO2 remained in low 90's on RA. Pt was discharged with instructions for incentive spirometry, ambulation, and upright posture for duration of block.
--- NOTE | 2020-11-16 17:04 | SUR.PHASEII ---
results of xray read by Dr. Ramirez . Pt's sats 92-94 on room air, no SOB, well instructed on incentive spirometer and aware to continue at home. Instructions discussed with as well and both voiced an understanding. Dressing remained c/d/i. and sling in place.
== END 2020-11-16 16:30 | disposition home or self-care (01) ==
PROVIDERS: PCP Family Medicine; Referring Provider Orthopaedic Surgery; Visit Provider Orthopaedic Surgery
PROC: (CPT 29827; principal; 2020-11-16 07:45)
DX: M75.111 Incomplete rotator cuff tear or rupture of right shoulder, not specified as traumatic (principal); M75.41 Impingement syndrome of right shoulder; M19.011 Primary osteoarthritis, right shoulder; S46.211A Strain of muscle, fascia and tendon of other parts of biceps, right arm, initial encounter; C50.919 Malignant neoplasm of unspecified site of unspecified female breast; K21.9 Gastro-esophageal reflux disease without esophagitis; E78.5 Hyperlipidemia, unspecified
CPT/HCPCS: 29823; 29824; 29826; 71045; J0171; J0690; J1100; J1170; J2250; J2405; J2704; J3010; J7613

== ENCOUNTER → 2021-04-27 10:29 | Outpatient (CLI) | payer MEDICARE, SELFPAY ==
--- NOTE | 2021-04-27 10:30 | DI.NM.S_ITS ---
PROCEDURE: [place] BONE SCAN WHOLE BODY RADIOPHARMACEUTICAL: 21.4 mCi Tc-99m MDP IV. INDICATIONS: breast cancer, metastatic TECHNIQUE: Delayed whole-body scintigrams were obtained approximately 3-4 hours after intravenous injection of radiotracer. Anterior and posterior views were acquired from vertex to feet. COMPARISON: [facility], CT, CT CHEST ABD PEL W CON, 06/25/2018, 11:37. [place], [place] BONE SCAN WHOLE BODY, 06/25/2018, 13:12. [place], [place] BONE SCAN WHOLE BODY, 06/15/2019, 13:01. [place], [place] PET CT FUSION SKULL 2 THIGH, 01/26/2020, 13:35. [place], [place] BONE SCAN WHOLE BODY, 05/10/2020, 12:40. [place], [place] PET CT FUSION SKULL 2 THIGH, 10/04/2020, 11:02. [facility], CT, CT CHEST ABD PEL W CON, 04/27/2021, 11:28. FINDINGS: There are foci of increased activity in right L4-L5 and left L5-S1, unchanged from multiple prior bone scans, correlating with large lateral osteophytes associated with degenerative disease seen on the comparison CT. The lytic bone lesion in S1 seen on the comparison CT is probably obscured by degenerative changes. No other suspicious lesions are identified. Again noted is hyperostosis frontalis. IMPRESSION: 1. Stable bone scan. Large lateral osteophytes could explain foci of increased uptake in right L4-L5 and left L5-S1. 2. Lytic bone lesion in left side of S1 body seen on CT is likely obscured by degenerative change. Sometimes aggressive metastatic lesions, especially lytic bone lesions, are scintigraphically occult. 3. No new lesions are identified on bone scan. Dictated by: Armand Gudino M.D. on 04/27/2021 at 16:44 Approved by: Armand Gudino M.D. on 04/27/2021 at 16:57
--- NOTE | 2021-04-27 11:21 | DI.CT.S_ITS ---
PROCEDURE: CT CHEST ABD PEL W CON INDICATIONS: breast cancer, metastatic TECHNIQUE: After the administration of oral and intravenous contrast, axial sections acquired from the supraclavicular neck to the pubic symphysis. Coronal and sagittal reformats were performed. For radiation dose reduction, the following was used: automated exposure control, adjustment of mA and/or kV according to patient size. COMPARISON:[facility], [place], [place] PET CT FUSION SKULL 2 THIGH, 01/26/2020, 13:35. [facility], CT, CT CHEST ABD PEL W CON, 06/15/2019, 10:28. FINDINGS: Image quality: Excellent. CHEST: Lower Neck: No enlarged lymph nodes. Thyroid: Within normal limits. Axillae: No enlarged lymph nodes. Chest Wall: Unremarkable. Lungs and Airways: Bilateral pleural thickening/scarring is again seen. No consolidation or suspicious nodules. Pleura: No pneumothorax or pleural effusions. Heart: Heart size is normal. No pericardial effusion. Thoracic Vessels: The aorta and pulmonary arteries demonstrate normal size. A left marixa catheter is seen with tip in the SVC. Mediastinum and [place]: No enlarged lymph nodes. Esophagus: No wall thickening. No hiatal hernia. ABDOMEN: Liver: Unremarkable. Gallbladder: Unremarkable. Biliary ducts: Unremarkable. Pancreas: Unremarkable. Spleen: Unremarkable. Adrenal Glands: Unremarkable. Kidneys and Ureters: Unremarkable. Stomach and Bowel: No evidence of intestinal obstruction or inflammatory change. The appendix is not visualized. Peritoneum: No abnormal intraperitoneal fluid. No free air. Ventral Wall: No hernia. Abdominal Nodes: No retroperitoneal or mesenteric adenopathy by size criteria. Vessels: Aorta and inferior vena cava are normal in size. PELVIS: Pelvic Organs: Unremarkable. Bladder: Unremarkable. Pelvic Nodes: No enlarged lymph nodes. Miscellaneous: No inguinal hernias are seen. Bones: Multifocal degenerative change. Increased size of the previously demonstrated lytic lesion in the left sacrum, measuring 1.9 cm, previously measuring 1.5 cm. IMPRESSION: 1. No interval intrathoracic change. 2. Increased size of the previously demonstrated lytic lesion in the left sacrum, now measuring up to 1.9 cm. Dictated by: Rasta Thomas M.D. on 04/27/2021 at 12:28 Approved by: Rasta Thomas M.D. on 04/27/2021 at 12:47
== END ==
PROVIDERS: PCP Family Medicine; Referring Provider Internal Medicine Hematology & Oncology; Visit Provider Internal Medicine Hematology & Oncology
DX: C50.011 Malignant neoplasm of nipple and areola, right female breast (principal); M89.9 Disorder of bone, unspecified; Z17.0 Estrogen receptor positive status [ER+]
CPT/HCPCS: 71260; 74177; 78306; A9503

== ENCOUNTER → 2021-09-27 10:15 | Outpatient (CLI) | payer MEDICARE, SELFPAY ==
--- NOTE | 2021-09-27 11:48 | DI.CT.S_ITS ---
PROCEDURE: CT CHEST ABD PEL W CON INDICATIONS: metastatic breast cancer TECHNIQUE: After the administration of oral and intravenous contrast, axial sections acquired from the supraclavicular neck to the pubic symphysis. Coronal and sagittal reformats were performed. For radiation dose reduction, the following was used: automated exposure control, adjustment of mA and/or kV according to patient size. COMPARISON:[facility], CT, CT CHEST ABD PEL W CON, 04/27/2021, 11:28. FINDINGS: Image quality: Excellent. CHEST: Lower Neck: No enlarged lymph nodes. Thyroid: Small nodules do not require dedicated follow-up. Axillae: Left axillary dissection. Left wall dystrophic calcification and surgical clips. Chest Wall: As above Lungs and Airways: Scattered scarring/atelectasis. There is some radiation fibrosis in the lingula. No new or enlarging pulmonary nodules. Pleura: No pneumothorax or pleural effusions. Heart: Heart size is normal. No pericardial effusion. Thoracic Vessels: The aorta and pulmonary arteries demonstrate normal size. Mediastinum and [place]: No enlarged lymph nodes. Esophagus: No hiatal hernia. ABDOMEN: Liver: Unremarkable. Gallbladder: Unremarkable Biliary ducts: Unremarkable. Pancreas: Unremarkable. Spleen: Unremarkable. Adrenal Glands: Unremarkable. Kidneys and Ureters: Unremarkable. Stomach and Bowel: Stomach, small bowel loops, and colon are unremarkable. Peritoneum: No abnormal intraperitoneal fluid. No free air. Ventral Wall: No hernia. Abdominal Nodes: No retroperitoneal or mesenteric adenopathy by size criteria. Vessels: Mild atherosclerotic calcifications. Small calcified splenic artery aneurysm PELVIS: Pelvic Organs: Unremarkable. Bladder: Unremarkable. Pelvic Nodes: No enlarged lymph nodes. Miscellaneous: Soft tissue thickening around the labia again seen Bones: Heterogeneous marrow attenuation . Similar lytic lesion of the lumbarized S1 vertebral body.. Lumbosacral spondylosis. IMPRESSION: Similar S1 lytic lesion. No new or enlarging metastases. Dictated by: Gerardo Saravia M.D. on 09/27/2021 at 14:58 Approved by: Gerardo Saravia M.D. on 09/27/2021 at 15:11
== END ==
PROVIDERS: PCP Family Medicine; Referring Provider Internal Medicine Hematology & Oncology; Visit Provider Internal Medicine Hematology & Oncology
DX: C50.011 Malignant neoplasm of nipple and areola, right female breast (principal); M89.9 Disorder of bone, unspecified; C77.8 Secondary and unspecified malignant neoplasm of lymph nodes of multiple regions; M47.816 Spondylosis without myelopathy or radiculopathy, lumbar region; I25.10 Atherosclerotic heart disease of native coronary artery without angina pectoris; I72.8 Aneurysm of other specified arteries; Z17.0 Estrogen receptor positive status [ER+]
CPT/HCPCS: 71260; 74177; Q9967

== ENCOUNTER → 2021-10-01 09:37 | Outpatient (CLI) | payer MEDICARE, SELFPAY ==
--- NOTE | 2021-10-01 09:38 | DI.MG.S_ITS ---
BILATERAL DIGITAL DIAGNOSTIC MAMMOGRAM 3D/2D: 10/01/2021 CLINICAL: Left breast lump. Comparison is made to exams dated: 02/19/2017 ultrasound, 02/19/2017 mammogram, 08/26/2016 ultrasound, 05/07/2016 mammogram, and 04/12/2015 mammogram - [facility]. The tissue of both breasts is heterogeneously dense. This may lower the sensitivity of mammography. No significant masses, calcifications, or other findings are seen in either breast. Left breast post-surgical changes. IMPRESSION: INCOMPLETE: NEEDS ADDITIONAL IMAGING EVALUATION No mass or other suspicious finding. Ultrasound of the left breast area of erythema and pain will be performed. This exam was interpreted at Station ID: [id number]. NOTE: For mammograms, a report in lay terms will be sent to the patient. Approximately 15% of breast malignancies will not be visualized mammographically. In the management of a palpable breast mass, a negative mammogram must not discourage biopsy of a clinically suspicious lesion. Electronically Signed By: Sohail Warner M.D. jr/:10/01/2021 12:25:28 copy to: Anibal Chisholm copy to: Tiago Solis ACR BI-RADS Category 0: Incomplete [id number]
--- NOTE | 2021-10-01 09:38 | DI.US.S_ITS ---
ULTRASOUND OF LEFT BREAST: 10/01/2021 CLINICAL: Palpable, tender left breast lump. Comparison is made to exams dated: 10/01/2021 mammogram, 02/19/2017 ultrasound, 02/19/2017 mammogram, 08/26/2016 ultrasound, and 05/07/2016 mammogram - [facility]. Color flow and real-time ultrasound of the left breast were performed. Pradhan scale images of the real-time examination were reviewed. No significant abnormalities were seen sonographically in the left breast. There is no mass or suspicious shadowing. Scarring is seen at the area of interest. No fluid collection or other inflammatory/infectious findings noted. IMPRESSION: NEGATIVE There is no sonographic evidence of malignancy. Please note that Paget disease of the breast is not excluded, which is of concern in this case due to the reported history of erythema and pain. Consider a skin biopsy. Otherwise screening mammogram recommended in one year. This exam was interpreted at Station ID: [id number]. Electronically Signed By: Sohail Warner M.D. jr/:10/01/2021 12:27:14 copy to: Anibal Chisholm copy to: Tiago Solis letter sent: Normal Exam Ultrasound BI-RADS: 1 Negative
== END ==
PROVIDERS: PCP Family Medicine; Referring Provider Internal Medicine Hematology & Oncology; Visit Provider Internal Medicine Hematology & Oncology
DX: C50.911 Malignant neoplasm of unspecified site of right female breast; N63.20 Unspecified lump in the left breast, unspecified quadrant; R92.8 Other abnormal and inconclusive findings on diagnostic imaging of breast; N64.4 Mastodynia
CPT/HCPCS: 76642; 77066; G0279

== ENCOUNTER → 2021-10-04 10:12 | Outpatient (CLI) | payer OTHER, SELFPAY ==
--- NOTE | 2021-10-04 10:14 | DI.NM.S_ITS ---
PROCEDURE: RI BONE SCAN WHOLE BODY RADIOPHARMACEUTICAL: 21.1 mCi Tc-99m MDP IV. INDICATIONS: metastatic breast cancer TECHNIQUE: Delayed whole-body scintigrams were obtained approximately 3-4 hours after intravenous injection of radiotracer. Anterior and posterior views were acquired from vertex to feet. COMPARISON: [place], [place] BONE SCAN WHOLE BODY, 06/15/2019, 13:01. [facility], CT, CT CHEST ABD PEL W CON, 09/27/2021, 11:56. [facility], [place], [place] BONE SCAN WHOLE BODY, 04/27/2021, 14:06. FINDINGS: Foci of increased uptake in the left L4-L5 and right L5-S1 correlate with prominent degenerative osteophytes seen on the comparison CT. When compared to the last bone scan, there is no significant change. Focal decreased activity with peripheral increased uptake in sacrum, correlating with lytic bone lesion, compatible with treated metastasis. No lesions are identified in skull, sternum, clavicles, scapulae, ribs, bony pelvis, and visualized shafts of the long bones. There is low level increased uptake in cervical, thoracic and lumbar spine with distribution indistinguishable from degenerative disc and facet disease; early metastasis to spine could be obscured by degenerative changes. There are foci of increased periarticular activity compatible with degenerative/arthritic changes. IMPRESSION: 1. Suspect treated metastasis in sacrum. 2. Elsewhere, no definitive scintigraphic findings to suggest osseous metastasis. Dictated by: Armand Gudino M.D. on 10/04/2021 at 16:27 Approved by: Armand Gudino M.D. on 10/05/2021 at 10:01
== END ==
PROVIDERS: PCP Family Medicine; Referring Provider Internal Medicine Hematology & Oncology; Visit Provider Internal Medicine Hematology & Oncology
DX: C50.011 Malignant neoplasm of nipple and areola, right female breast (principal); C77.8 Secondary and unspecified malignant neoplasm of lymph nodes of multiple regions; M89.9 Disorder of bone, unspecified
CPT/HCPCS: 78306; A9503

== ENCOUNTER → 2021-12-11 11:04 | Outpatient (CLI) | payer OTHER, SELFPAY ==
--- NOTE | 2021-12-11 11:08 | DI.RAD.S_ITS ---
PROCEDURE: XR CERVICAL SPINE 2V OR 3V INDICATIONS: Cervicalgia TECHNIQUE: 3 view(s) of the cervical spine were acquired. COMPARISON: CT, NECK/CHEST/ABD/PEL W CONTRAST, 11/08/2015, 9:50. FINDINGS: Bones: No fractures or dislocations to the T1 level. The lateral masses of C1 appear intact on the odontoid view. No suspicious bony lesions. Loss of lordosis which could be related to muscle spasm, rigidity or simply positional. 2 mm spondylolisthesis C4-C5. Moderate to severe C5-C6 and moderate C6-C7 disc height loss with endplate sclerosis and spurring. Mild multilevel mid and lower cervical spine facet joint arthropathy and multilevel uncovertebral hypertrophy. Soft tissues: No prevertebral soft tissue swelling. IMPRESSION: 1. Loss of the normal cervical lordosis and multilevel cervical spine spondylosis. Dictated by: Mich ALBERTS Interpreted: Kathy Silva MD on 12/11/2021 at 12:25 Transcribed by: REBECCA on 12/11/2021 at 12:27 Approved by: Kathy Silva M.D. on 12/12/2021 at 8:13
== END ==
PROVIDERS: PCP Family Medicine; Referring Provider Family Medicine; Visit Provider Family Medicine
DX: M54.2 Cervicalgia (principal); M47.812 Spondylosis without myelopathy or radiculopathy, cervical region
CPT/HCPCS: 72040

== ENCOUNTER → 2022-05-24 08:50 | Outpatient (CLI) | payer OTHER, SELFPAY ==
--- NOTE | 2022-05-24 08:51 | DI.CT.S_ITS ---
PROCEDURE: CT CHEST ABD PEL W CON INDICATIONS: metastatic breast cancer TECHNIQUE: After the administration of oral and intravenous contrast, axial sections acquired from the supraclavicular neck to the pubic symphysis. Coronal and sagittal reformats were performed. For radiation dose reduction, the following was used: automated exposure control, adjustment of mA and/or kV according to patient size. COMPARISON: [facility], CT, CT CHEST ABD PEL W CON, 09/27/2021, 11:56. FINDINGS: Image quality: Excellent. CHEST: Lower Neck: No enlarged lymph nodes. Thyroid: Atrophic. Axillae: No enlarged lymph nodes. Prior left axillary lymph node dissection. Chest Wall: Prior left breast lumpectomy, with coarse calcifications present. Lungs and Airways: Stable juxtapleural nodularity in the lateral right upper lobe. Antecubital reticulation in the left lung, consistent radiation fibrosis. No suspicious pulmonary nodules. Pleura: No pneumothorax or pleural effusions. Heart: Heart size is normal. No pericardial effusion. Thoracic Vessels: The aorta and pulmonary arteries demonstrate normal size. Mediastinum and [place]: No enlarged lymph nodes. Esophagus: No wall thickening. No hiatal hernia. ABDOMEN: Liver: Focal fat adjacent to the falciform ligament. Gallbladder: Unremarkable. Biliary ducts: Unremarkable. Pancreas: Unremarkable. Spleen: Unremarkable. Adrenal Glands: Unremarkable. Kidneys and Ureters: Unremarkable. Stomach and Bowel: Stomach, small bowel loops, and colon are unremarkable. Peritoneum: No abnormal intraperitoneal fluid. No free air. Ventral Wall: No hernia. Abdominal Nodes: No retroperitoneal or mesenteric adenopathy by size criteria. Vessels: Aorta and inferior vena cava are normal in size. PELVIS: Pelvic Organs: Unremarkable. Bladder: Unremarkable. Pelvic Nodes: No enlarged lymph nodes. Miscellaneous: No inguinal hernias are seen. Bones: New subtle dense lesion in the left posterior T10 vertebral body (2/44). Stable lytic lesion in the S1 vertebral body. IMPRESSION: 1. New subtle dense lesion in the left posterior T10 vertebral body. Correlate findings with upcoming bone scan. No abnormality in the hips to explain the patient's hip pain. 2. Stable lytic lesion of the S1 vertebral body. 3. Prior left breast lumpectomy and left axillary lymph node dissection. No evidence local recurrence or richard disease. Dictated by: Gaurav Haque M.D. on 05/24/2022 at 11:08 Approved by: Gaurav Haque M.D. on 05/24/2022 at 11:16
--- NOTE | 2022-05-24 08:51 | DI.NM.S_ITS ---
PROCEDURE: [place] BONE SCAN WHOLE BODY RADIOPHARMACEUTICAL: 22.0 mCi Tc-99m MDP IV. INDICATIONS: metastatic breast cancer TECHNIQUE: Delayed whole-body scintigrams were obtained approximately 3-4 hours after intravenous injection of radiotracer. Anterior and posterior views were acquired from vertex to feet. COMPARISON: [place], [place] PET CT FUSION SKULL 2 THIGH, 01/26/2020, 13:35. [place], [place] BONE SCAN WHOLE BODY, 05/10/2020, 12:40. [place] BONE SCAN WHOLE BODY, 10/04/2021, 12:55. [facility], CT, CT CHEST ABD PEL W CON, 09/27/2021, 11:56. [facility], CT, CT CHEST ABD PEL W CON, 05/24/2022, 9:54. FINDINGS: No lesions are identified in skull, sternum, clavicles, scapulae, ribs, bony pelvis, and visualized shafts of the long bones. There are foci of increased uptake in cervical, thoracic and lumbar spine, particularly at L4-L5 and L5-S1, most likely secondary to degenerative disc and facet disease; early metastasis to spine could be obscured by degenerative changes. There are foci of increased periarticular activity involving most pronounced in shoulders, compatible with degenerative/arthritic changes. IMPRESSION: Stable bone scan. No new foci of uptake to suggest new osseous metastasis. Dictated by: Armand Gudino M.D. on 05/24/2022 at 16:36 Approved by: Armand Gudino M.D. on 05/24/2022 at 16:41
== END ==
PROVIDERS: PCP Family Medicine; Referring Provider Internal Medicine Hematology & Oncology; Visit Provider Internal Medicine Hematology & Oncology
DX: C50.911 Malignant neoplasm of unspecified site of right female breast (principal); M89.9 Disorder of bone, unspecified
CPT/HCPCS: 71260; 74177; 78306; A9503

== ENCOUNTER → 2022-07-09 10:23 | Outpatient (CLI) | payer OTHER, SELFPAY ==
--- NOTE | 2022-07-09 10:24 | DI.RAD.S_ITS ---
PROCEDURE: XR HIP W PEL IF DONE RT 2V INDICATIONS: low back pain, right hip pain TECHNIQUE: AP pelvis with lateral view(s) of the right hip(s). COMPARISON: [facility], , [id number] W PEL IF PERFORMED, 08/31/2015, 11:31. FINDINGS: Bones: No fractures or dislocations. Pelvic ring appears intact. No suspicious bony lesions. [id number] bilateral degenerative hip joint space narrowing more notable on the left. No erosions. Soft tissues: The visualized bowel gas pattern is normal. No suspicious soft tissue calcifications. IMPRESSION: Bilateral osteoarthritis of the hips. Dictated by: Kathy Silva M.D. on 07/09/2022 at 17:07 Approved by: Kathy Silva M.D. on 07/09/2022 at 17:07
--- NOTE | 2022-07-09 10:24 | DI.RAD.S_ITS ---
PROCEDURE: XR LUMBAR SPINE 2-3V INDICATIONS: low back pain, right hip pain TECHNIQUE: 3 views of the lumbar spine were acquired. COMPARISON: MR, MR LUMBAR SPINE WO/W CON, 12/27/2019, 11:26. FINDINGS: Bones: 5 [id number] vertebrae are present. There is rightward scoliotic curvature. No vertebral body compression fractures. No suspicious bony lesions. Multilevel moderate to severe disc and foraminal narrowing are present most severe at L5-S1. Soft tissues: Overlying bowel gas pattern is normal. No suspicious soft tissue calcifications. IMPRESSION: Multilevel degenerative changes most severe at L5-S1. Dictated by: Kathy Silva M.D. on 07/09/2022 at 17:06 Approved by: Kathy Silva M.D. on 07/09/2022 at 17:07
== END ==
PROVIDERS: PCP Family Medicine; Referring Provider Family Medicine; Visit Provider Family Medicine
DX: M47.817 Spondylosis without myelopathy or radiculopathy, lumbosacral region (principal); M16.0 Bilateral primary osteoarthritis of hip; M25.551 Pain in right hip; M54.50 Low back pain, unspecified
CPT/HCPCS: 72100; 73502

== ENCOUNTER 2022-07-28 11:20 | Emergency (ER) | payer OTHER, SELFPAY ==
[2022-07-28 11:26] VITALS: BP 192/90; PULSE 81; RESP 16; TEMP 36.6; O2SAT 98; BMI 24.7
[2022-07-28 11:34] VITALS: PULSE 76; O2SAT 99
--- NOTE | 2022-07-28 11:52 | ED_ITS ---
HPI - Extremity Injury (Lower) <Maria Del Carmen Shields PA-C - Last Filed: 07/28/22 12:16> General Chief Complaint: Extremity Problem,Nontraumatic Stated Complaint: extreme pain in sharri hips into lt leg Time Seen by Provider: 07/28/22 11:26 Source: patient and family Mode of arrival: Ambulatory History of Present Illness HPI Narrative: 76-year-old woman with a history of osteoarthritis, chronic hip pain and low back pain, hypothyroid presents with concern for bilateral hip pain worsening recently. Patient states that on Friday or Friday a week ago she started having worse hip pain, she is been trying the Vicodin that her primary care provided her as well as some Tylenol. Patient states the pain is worse than she typically has had in the past, she has pain sometimes going from her buttock and shooting down the back of her left leg. She does not have this on the right side, but does have buttock pain on the right. She has no midline pain but states that her hip is in the buttock on both sides. Vicodin does do much but the Tylenol has been somewhat helpful. She got a cortisone shot from her primary care provider in 1 of her hips and she said that this was helpful. 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 She states that she ?isn't getting any rest?. She does state that she got a list of helpers and has access to a dditional caregivers to come assist through hospice and a certified social workers in health care but ?my does not want anyone else to help?. Patient denies any specific injury other than possibly overuse with helping to transfer her and move his legs around in bed. She denies any other complaints or concerns including one- sided weakness, numbness tingling, saddle paresthesia, fevers, chills or any other symptoms. Related Data Home Medications Medication Instructions Recorded Confirmed fluticasone propionate 50 1 spray intranasal QDAY ##0 08/01/16 01/14/22 mcg/actuation nasal spray,suspension (Flonase Allergy Relief) aspirin 81 mg tablet,delayed 81 mg PO QDAY ##0 02/13/17 01/14/22 release levothyroxine 50 mcg tablet 50 mcg PO DAILY 05/07/18 01/14/22 omeprazole 20 mg capsule,delayed 20 mg PO DAILY 05/07/18 01/14/22 release rosuvastatin 20 mg tablet 20 mg PO DAILY 05/07/18 01/14/22 ibuprofen 200 mg capsule (Motrin 400 mg PO BID 06/04/18 01/14/22 IB) cholecalciferol (vitamin D3) 50 50 mcg PO DAILY 08/02/21 01/14/22 mcg (2,000 unit) capsule (Vitamin D3) multivitamin 1 tab PO DAILY 08/02/21 01/14/22 Previous Rx's Medication Instructions Recorded hydroxyzine pamoate 25 mg capsule 25 mg PO TID-QID PRN spasms #60 11/16/20 (Vistaril) caps letrozole 2.5 mg tablet 2.5 mg PO DAILY breast cancer #90 04/19/21 tabs palbociclib 100 mg capsule 100 mg PO DAILY #21 caps 02/26/22 (Ibrance) lidocaine 5 % topical ointment 1 applic topical TID PRN pain 10 07/28/22 days #30 grams prednisone 20 mg tablet 40 mg PO DAILY 5 days #10 tabs 07/28/22 Allergies Allergy/AdvReac Type Severity Reaction Status Date / Time latex Allergy Intermediate Hives Verified 11/16/20 06:42 banana Allergy Unknown SCRATCHY Verified 11/16/20 06:42 THROAT shellfish derived Allergy Unknown ITCH/RASH, Verified 11/16/20 06:42 SCRATCHY THROAT Review of Systems <Maria Del Carmen Shields PA-C - Last Filed: 07/28/22 12:16> Review of Systems Narrative: See HPI Patient History <Maria Del Carmen Shields PA-C - Last Filed: 07/28/22 12:16> Medical History Breast cancer, right (2005) Cervical cancer (1986) HLD (hyperlipidemia) Hypothyroid Palpitations Partial tear of right rotator cuff Subacromial impingement of right shoulder URI (upper respiratory infection) Surgical History History of biopsy (11/16/13) History of hysterectomy Social History household members: spouse Smoking Status: Never smoker alcohol intake: current Smoking Status: Never smoker alcohol intake frequency: holidays/special occasions only Substance Use Type: does not use Exam <Maria Del Carmen Shields PA-C - Last Filed: 07/28/22 12:16> Narrative Exam Narrative: GENERAL: 76 year old patient appears stated age. Well-developed patient, in mild distress. HEAD: Atraumatic. Normocephalic. EYES: Pupils equal round and reactive. Extraocular motions intact. No scleral icterus. No injection or drainage. ENT: Nose without bleeding, purulent drainage. Airway patent. NECK: Trachea midline. Non tender CARDIOVASCULAR: Regular rate and rhythm without murmurs, gallops, or rubs. RESPIRATORY: Clear to auscultation. Breath sounds equal bilaterally. No wheezes, rales, or rhonchi. GASTROINTESTINAL: Abdomen soft, non-tender, nondistended. EXTREMITIES: Strength is 6/6 bilaterally in the lower extremities, with resisted range of motion at hips knees and ankles. patient has increased pain with extension at the hip and with flexion at the knee bilaterally more prominent on the right. No edema or joint tenderness. BACK: There is slight paraspinal muscle tenderness of the lumbar spine, patient has tenderness over the SI joint bilaterally and over the right buttock at sciatic nerve exit bilaterally more prominent on the right. Otherwise Nontender without deformity or crepitance. No flank tenderness. NEURO: AOx3. SKIN: No rash or erythema of visible areas Initial Vital Signs Initial Vital Signs: Vital Signs Temperature 97.9 F 07/28/22 11:26 Pulse Rate 81 07/28/22 11:26 Respiratory Rate 16 07/28/22 11:26 Blood Pressure 192/90 H 07/28/22 11:26 Pulse Oximetry 98 07/28/22 11:26 Oxygen Delivery Method Room Air 07/28/22 11:26 <Mitchell Camacho DO - Last Filed: 07/28/22 14:25> Initial Vital Signs Initial Vital Signs: Vital Signs Temperature 97.9 F 07/28/22 11:26 Pulse Rate 81 07/28/22 11:26 Respiratory Rate 16 07/28/22 11:26 Blood Pressure 192/90 H 07/28/22 11:26 Pulse Oximetry 98 07/28/22 11:26 Oxygen Delivery Method Room Air 07/28/22 11:26 Course <Maria Del Carmen Shields PA-C - Last Filed: 07/28/22 12:16> Vital Signs Vital signs: Vital Signs - 8 hr 07/28/22 11:26 07/28/22 12:38 07/28/22 11:34 Temperature 97.9 F Pulse Rate 81 72 76 Respiratory Rate 16 16 Blood Pressure 192/90 H 147/68 H Pulse Oximetry 98 96 99 Oxygen Delivery Method Room Air Room Air 07/28/22 12:00 07/28/22 12:30 07/28/22 12:30 Temperature Pulse Rate 67 68 Respiratory Rate Blood Pressure 147/68 H Pulse Oximetry 98 98 Oxygen Delivery Method Room Air <Mitchell Camacho DO - Last Filed: 07/28/22 14:25> Vital Signs Vital signs: Vital Signs - 8 hr 07/28/22 11:26 07/28/22 12:38 07/28/22 11:34 Temperature 97.9 F Pulse Rate 81 72 76 Respiratory Rate 16 16 Blood Pressure 192/90 H 147/68 H Pulse Oximetry 98 96 99 Oxygen Delivery Method Room Air Room Air 07/28/22 12:00 07/28/22 12:30 07/28/22 12:30 Temperature Pulse Rate 67 68 Respiratory Rate Blood Pressure 147/68 H Pulse Oximetry 98 98 Oxygen Delivery Method Room Air MDM - Extremity Injury (Lower) <Maria Del Carmen Shields PA-C - Last Filed: 07/28/22 12:16> Differential Diagnosis Differential diagnosis: Likely other (Chronic hip pain, osteoarthritis, sciatica, strain) Medical Records Attestation: I reviewed the patient's medical records. Treatment and disposition Shared decision making:: Shared decision-making was used with patient and patient's daughters present also regarding plan of treatment today and plan for outpatient follow-up. 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 Patient has no specific recent injury and exam is not suggestive of fracture, she is ambulatory to the room without difficulty and without walking aid. Exam is most suggestive of exacerbation of her chronic osteoarthritis as well as sciatica. Patient has no red flag symptoms. Patient had recent imaging done including bilateral hip x-rays pelvis and lumbar spine 3 weeks ago at this hospital. They showed chronic osteoarthritis of bilateral hips as well as lumbar spine degeneration L4-L5. She also recently had a bone scan about 6 weeks ago that showed degeneration in the lumbar spine with note that degeneration could possibly be hiding a metastatic process although this was not noted to be the case. Patient has no exam findings or history suggestive of UTI. Discussed treatment options with the patient and encouraged her to follow-up with orthopedics. Also strongly encouraged her to make use of the additional assistance that she is been offered in help caring for her . Encouraged her to rest, try gentle stretching, consider ice or heat in addition to medications prescribed today. Patient has not had improvement of symptoms with opioid pain medications and additional meds will not be prescribed today. We will do a short course of prednisone as well as lidocaine patches. Encouraged patient to follow up closely with her primary care provider and consider getting into see Orthopedics. Return precautions, ED precautions provided, all questions answered. Discharge Plan Departure Patient Disposition: Home Clinical Impression: Sciatica, Chronic hip pain, bilateral Activity Restrictions/Additional Instructions: *You have been diagnosed with [sciatica and acute on chronic osteoarthritis/hip pain] *What to do: *Please continue to take your regular medications as directed. [2] New medication prescriptions sent to your pharmacy: [Prednisone, lidocaine] [ ] New medication written as a paper prescription [ ] No new medications given *Please follow up with your primary care provider in 2-3 days, call for an appointment. Let them know you were seen in the Emergency Department and that we ask that you be seen in follow up. We will electronically transmit a record of today's note if your PCP is in our system. I strongly encourage you to work on getting into see Orthopedics, you may ask her primary care provider for referral, I have included 1 of our orthopedic providers here at this hospital there information below and you may contact their office also. Please work on getting additional help it sounds like you have some good resources, just need to convince her to let other people assist in his care it is very important that you are able to get some rest and take care of yourself. *If you do not have a primary care provider please contact the [facility] Resource line at [phone]. They will ask some questions about your medical history and help get you set up with a doctor in the community. *Return to Emergency Department if you should have any new, worsening or concerning symptoms, such as [fever greater than 101 F, shaking chills, worsening pain, persistent vomiting or other bothersome symptoms] Prescriptions: New lidocaine 5 % ointment 1 applic topical TID PRN (Reason: pain) 10 Days Qty: 30 0RF prednisone 20 mg tablet 40 mg PO DAILY 5 Days Qty: 10 0RF No Action fluticasone propionate [Flonase Allergy Relief] 9.9 ML spray,suspension 1 spray Intranasal QDAY Qty: 0 aspirin 81 MG tablet,delayed release (DR/EC) 81 mg PO QDAY Qty: 0 Ibrance 100 mg Capsule 100 mg PO DAILY Qty: 21 11RF Rx Instructions: administer on days 1 through 21 of a 28-day treatment cycle hydroxyzine pamoate [Vistaril] 25 mg capsule 25 mg PO TID-QID PRN (Reason: spasms) Qty: 60 0RF levothyroxine 50 mcg Tablet 50 mcg PO DAILY omeprazole 20 mg Capsule,Delayed Release(Dr/Ec) 20 mg PO DAILY rosuvastatin 20 mg Tablet 20 mg PO DAILY ibuprofen [Motrin IB] 200 mg Capsule 400 mg PO BID letrozole 2.5 mg Tablet 2.5 mg PO DAILY Qty: 90 3RF multivitamin Tablet 1 tab PO DAILY cholecalciferol (vitamin D3) [Vitamin D3] 50 mcg (2,000 unit) Capsule 50 mcg PO DAILY Referrals: Melecio Bishop MD [Physician] - (Hip osteoarthritis, lumbar spine degeneration) Anibal Chisholm MD [Primary Care Provider] - Stand Alone Forms: Patient Portal/API <Mitchell Camacho DO - Last Filed: 07/28/22 14:25> Cosign ED Attending Vladimirature Attestation: I was immediately available in the department for consultation. Documentation has been reviewed. I agree with assessment and plan.
[2022-07-28 12:00] VITALS: PULSE 67; O2SAT 98
[2022-07-28 12:30] VITALS: BP 147/68; PULSE 68; O2SAT 98
[2022-07-28 12:38] VITALS: BP 147/68; PULSE 72; RESP 16; O2SAT 96
== END 2022-07-28 12:39 | disposition home or self-care (01) ==
PROVIDERS: Emergency Provider Student in an Organized Health Care Education/Training Program; PCP Family Medicine
DX: M25.552 Pain in left hip (principal); M25.551 Pain in right hip; M54.32 Sciatica, left side; M54.31 Sciatica, right side
CPT/HCPCS: 99281

== ENCOUNTER → 2022-09-08 14:59 | Outpatient (CLI) | payer OTHER, SELFPAY ==
--- NOTE | 2022-09-08 15:00 | DI.MRI.S_ITS ---
PROCEDURE: MR LUMBAR SPINE WO/W CON INDICATIONS: Lumbar radiculopathy, history metastatic breast cancer TECHNIQUE: Noncontrast sagittal T1 spin echo and T2 fast spin echo, sagittal STIR, axial T1 and T2 fast spin echo through the lumbar spine. In cases with scoliosis, additional coronal T2 fast spin echo may be performed. After the administration of contrast, sagittal and axial T1 spin echo with fat saturation through the lumbar spine. COMPARISON: , , MR LUMBAR SPINE WO/W CON, 12/27/2019, 11:26. FINDINGS: Image quality: Excellent. Alignment and curvature: Levoscoliosis of the lumbar spine. No spondylolisthesis. Marrow: Multiple STIR hyperintense enhancing lesions throughout the lumbar spine and posterior elements as well as the sacrum and visualized pelvic bones. There is no epidural extension identified. The largest disease burden is noted within the sacrum. Spinal cord: Conus medullaris terminates at the L1-L2 level. Visualized spinal cord demonstrates normal signal, without suspicious enhancement. Paraspinous soft tissues: No paravertebral masses or abnormal enhancement. T12-L1: No central canal or neural foraminal narrowing. L1-L2: Small posterior disc bulge without central canal stenosis. Mild facet arthropathy and thickening of ligamentum flavum. Mild left neural foraminal stenosis. No right neural foraminal stenosis. L2-L3: No central canal or neural foraminal stenosis. L3-L4: No central canal stenosis. Facet arthropathy resulting in mild to moderate right neural foraminal stenosis. No left neural foraminal stenosis. L4-L5: Small posterior disc bulge without central canal stenosis. Facet arthropathy. No significant neural foraminal stenosis. L5-S1: Small posterior disc bulge without central canal stenosis. Mild left neural foraminal stenosis. No right neural foraminal stenosis. IMPRESSION: 1. Multifocal metastatic disease throughout the entire lumbar spine including the posterior elements, sacrum and visualized iliac bones. No epidural extension is identified. 2. Degenerative changes of the lumbar spine as described above with up to mild neural foraminal narrowing and no significant central canal narrowing. Dictated by: Saul Ordoñez M.D. on 09/09/2022 at 16:01 Approved by: Saul Ordoñez M.D. on 09/09/2022 at 16:10
== END ==
PROVIDERS: PCP Family Medicine; Referring Provider Anesthesiology; Visit Provider Anesthesiology
DX: C79.51 Secondary malignant neoplasm of bone (principal); C50.919 Malignant neoplasm of unspecified site of unspecified female breast; M47.26 Other spondylosis with radiculopathy, lumbar region
CPT/HCPCS: 72158; A9579

== ENCOUNTER 2023-01-11 11:03 | Inpatient (IN) | payer OTHER, SELFPAY ==
[2023-01-11] VITALS (20 sets, daily range): BP systolic 147–191; BP diastolic 62–86; PULSE 78–86; RESP 16–29; TEMP 36–37.1; O2SAT 94–99; BMI 24.1
--- NOTE | 2023-01-11 | DI.CT.S_ITS ---
PROCEDURE: CT CHEST WO CON INDICATIONS: eval for rib/lung mets; metastatic brst ca, pain in R chest TECHNIQUE: Noncontrast 5 mm thick sections acquired from the pulmonary apices to the posterior costophrenic angles. 1 mm lung window, 5 mm thick coronal and sagittal and 7 mm axial MIP reformats were then acquired. For radiation dose reduction, the following was used: automated exposure control, adjustment of mA and/or kV according to patient size. COMPARISON: [facility], CT, CT CHEST ABD PEL W CON, 05/24/2022, 9:54. FINDINGS: Image quality: Excellent. Lungs and pleura: No acute air space opacities. No pleural effusions or pneumothorax. Central and peripheral airways are patent and normal in caliber. Mediastinum: Heart size is normal. No pericardial effusion. No mediastinal adenopathy by size criteria. Thoracic aorta and central pulmonary arteries are normal in size. Esophagus is normal in caliber. No hiatal hernia. Bones and chest wall: At what appears to be the anterior 8th and 9th vertebral bodies small anterior foci of sclerosis appear present, etiology uncertain. At what appears to be the 10th vertebral body there is a superior endplate region of sclerosis and compression fracture, with approximately 15% middle 3rd vertebral height reduction in that area. More anteriorly at the sternum best seen on the sagittal reconstruction imaging on series 7, image 53 there is a sternal body fracture, chronicity uncertain. . Then, more inferiorly, at what appears to be the. No vertebral body compression fractures. No axillary or supraclavicular adenopathy by size criteria. Thyroid gland is not well seen by this noncontrast technique. Port-A-Cath from left-sided approach extends to the atrial caval junction. Left-sided breast postsurgical changes consistent with prior breast carcinoma. . Abdomen: Visualized upper abdominal solid organs and bowel loops appear normal in the absence of contrast. IMPRESSION: 1. Port-A-Cath from left-sided approach extends to the atrial caval junction. Prior left breast carcinoma surgical treatment. 2. Small areas of sclerosis and a possible pathologic mild compression fracture involves what appears to be the 8th through 10th vertebral bodies as discussed above. There is an unexpected finding a mid sternal body fracture, chronicity uncertain. Osteolytic or blastic change at the site of sternal fracture is not identified. With reference to the earlier CT scanning 05/24/22 of the chest abdomen and pelvis the apparent 10th vertebral body compression fracture and the sternal fracture were not present. The anterior foci of slightly more superior sclerosis is stable over time and therefore likely degenerative in origin. Dictated by: Roverto Shah M.D. on 01/11/2023 at 21:11 Approved by: Roverto Shah M.D. on 01/11/2023 at 21:21
--- NOTE | 2023-01-11 11:11 | DI.RAD.S_ITS ---
PROCEDURE: XR CHEST 1V INDICATIONS: chest pain TECHNIQUE: One view of the chest was acquired. COMPARISON: [facility], CR, XR CHEST 1V, 11/16/2020, 14:42. FINDINGS: Surgical changes and devices: Left-sided Port-A-Cath in good position. Surgical clips project over the left axilla and breast Lungs and pleura: Lungs are clear. No pleural effusions or pneumothorax. Mediastinum: Mediastinal contours appear normal. Heart size is normal. Bones and chest wall: No suspicious bony lesions. Overlying soft tissues appear unremarkable. IMPRESSION: No acute findings Approved by: Surendra Suggs M.D. on 01/11/2023 at 11:39
--- NOTE | 2023-01-11 11:11 | DI.RAD.S_ITS ---
PROCEDURE: XR HIP W PEL IF DONE LT 2V INDICATIONS: pain TECHNIQUE: 2 views of the hip were acquired. COMPARISON: [facility], , XR HIP W PEL IF DONE RT 2V, 07/09/2022, 10:48. FINDINGS: Bones: No fractures or dislocations. No suspicious bony lesions. The visualized pelvic ring appears intact. Mild bilateral acetabular joint space narrowing noted. Femoral heads have an appropriate contour. Degenerative changes noted in the lower lumbar spine Soft tissues: No suspicious soft tissue calcifications or masses. IMPRESSION: Mild bilateral hip osteoarthritis. Degenerative disc disease and arthropathy in the lower lumbar spine Approved by: Surendra Suggs M.D. on 01/11/2023 at 11:53
[2023-01-11 11:27] LABS: Add Manual Diff / Slide Review NO; Basophils Absolute Auto 0 /uL (0-100); Basophils Percent Auto 1.5 % (0-2); Eosinophils Absolute Auto 100 /uL (0-450); Eosinophils Percent Auto 6.8 % (2-4); Lymphocytes Absolute Auto 200 /uL (1100-4500); Lymphocytes Percent Auto 12.1 % (25-40); Mean Corpuscular HGB Conc 33.8 % (30-36); Mean Corpuscular Hemoglobin 35.7 PG (26-34); Mean Corpuscular Volume 105.6 fL (80-100); Monocytes Absolute Auto 100 /uL (0-900); Monocytes Percent Auto 3.9 % (3-14); Neutrophils Absolute Auto 1600 /uL (1500-7000); Neutrophils Percent Auto 75.7 % (50-75); Platelet Count 132 X10^3/uL (150-400); Red Blood Cell Count 1.97 X10^6/uL (4.0-5.2); Red Cell Distribution Width 18.3 % (11.6-14.8); White Blood Cell Count 2.1 X10^3/uL (4.5-11.0)
--- NOTE | 2023-01-11 11:37 | ED_ITS ---
HPI - Extremity Injury (Lower) General Chief Complaint: Extremity Injury, Lower Stated Complaint: chest px Time Seen by Provider: 01/11/23 11:11 History of Present Illness HPI Narrative: Patient is 77-year-old female history of DCIS of left breast, hypothyroid, presents today with variety of complaints. She has been having left inguinal groin pain off and on for a couple weeks. She says it started when she bent her left knee and sat on it for extended period of time. Since then she is had pain in her inguinal ligament it hurts to walk. Pain got worse yesterday and today without recurring injury. She denies numbness or tingling down her leg. She is no abdominal pain. She reports that she has pain in her chest now 2. This morning she heard a pop on the right side of her chest. It is tender to palpation in 1 particular spot. No shortness of breath no fever she denies any dizziness or lightheadedness. She is been taking ibuprofen [place] daily to help with pain however today she needed extra doses Tylenol. She is taking Kisqali for DCIS and it does cause prolonged QT. She reports that she is had a couple EKGs over the last few weeks. Related Data Home Medications Medication Instructions Recorded Confirmed fluticasone propionate 50 1 spray intranasal QDAY ##0 08/01/16 09/30/22 mcg/actuation nasal spray,suspension (Flonase Allergy Relief) aspirin 81 mg tablet,delayed 81 mg PO QDAY ##0 02/13/17 09/30/22 release levothyroxine 50 mcg tablet 50 mcg PO DAILY 05/07/18 09/30/22 omeprazole 20 mg capsule,delayed 20 mg PO DAILY 05/07/18 09/30/22 release ibuprofen 200 mg capsule (Motrin 400 mg PO BID 06/04/18 09/30/22 IB) cholecalciferol (vitamin D3) 50 50 mcg PO DAILY 08/02/21 09/30/22 mcg (2,000 unit) capsule (Vitamin D3) hydrocodone 5 mg-acetaminophen 325 1 tab PO PRN PRN pain 08/27/22 09/30/22 mg tablet rosuvastatin 5 mg tablet 5 mg PO DAILY 08/27/22 09/30/22 Previous Rx's Medication Instructions Recorded palbociclib 100 mg capsule 100 mg PO DAILY #21 caps 02/26/22 (Ibrance) letrozole 2.5 mg tablet 2.5 mg PO DAILY breast cancer #90 09/02/22 tabs pregabalin 25 mg capsule 25 mg PO TID #90 caps 09/10/22 lidocaine 5 % topical patch 1 patch topical DAILY #30 patches 11/18/22 Allergies Allergy/AdvReac Type Severity Reaction Status Date / Time latex Allergy Intermediate Hives Verified 09/10/22 15:14 banana Allergy Unknown SCRATCHY Verified 09/10/22 15:14 THROAT shellfish derived Allergy Unknown ITCH/RASH, Verified 09/10/22 15:14 SCRATCHY THROAT Review of Systems Review of Systems ROS Unobtainable: All systems reviewed & are unremarkable except as noted in HPI and below Patient History Medical History Lumbar facet arthropathy Lumbar spondylosis Osteoarthritis, hip, bilateral Low back pain Lumbar radiculopathy Breast cancer, right (2005) Cervical cancer (1986) Palpitations HLD (hyperlipidemia) Partial tear of right rotator cuff Subacromial impingement of right shoulder Hypothyroid URI (upper respiratory infection) Surgical History History of biopsy (11/16/13) History of hysterectomy Social History household members: spouse Smoking Status: Never smoker alcohol intake: current Smoking Status: Never smoker alcohol intake frequency: holidays/special occasions only Substance Use Type: does not use Exam Initial Vital Signs Initial Vital Signs: Vital Signs Pulse Rate 85 01/11/23 11:06 Pulse Oximetry 98 01/11/23 11:06 GENERAL: Alert well-appearing 77-year-old female HEENT: Head atraumatic,EOMI, pupils reactive, face symmetric, moist mucous membranes CARDIOVASCULAR: Regular rate and rhythm without murmurs, rubs or gallops. Pain right upper rib around rib 4 reproducible to palpation RESPIRATORY: Breath sounds equal bilaterally, no wheezes rales or rhonchi. ABDOMEN: Soft, nontender. Normoactive bowel sounds all 4 quadrants. No guarding or rebound. EXTREMITIES: Normal range of motion, no clubbing or edema. Neurovascularly intact Pain left inguinal ligament strong femoral pulse felt bilateral lower extremity pulses felt pain with hip flexion and extension NEUROLOGICAL: Alert and oriented x4.Normal gait and speech. SKIN: Warm, dry, no laceration, no petechiae, no rashes or lesions. Course Orders Ordered: ED Orders 01/11/23 11:11 XR chest 1V Stat XR hip w pel if done LT 2V Stat 01/11/23 11:15 Complete Blood Count AUTO DIFF Stat Comprehensive Metabolic Panel Stat Lipase Stat Troponin & CK Cardiac Panel Stat 01/11/23 12:05 PRBC [Packed Cells] Stat Type and Screen Stat 01/11/23 12:54 CT abdomen pelvis w con Stat 01/11/23 13:14 EKG-12 Lead Stat 01/11/23 13:30 Trop I [Troponin I] Stat Discontinued Medications Ketorolac Tromethamine (Ketorolac 30 Mg/Ml Vial) 15 mg IV NOW ONE Stop: 01/11/23 11:12 Last Admin: 01/11/23 12:01 Dose: 15 mg Documented By: JO ANN Vital Signs Vital signs: Vital Signs - 8 hr 01/11/23 11:06 01/11/23 11:07 01/11/23 11:07 Temperature Pulse Rate 85 85 Pulse Rate [Left Dorsalis Pedis] Respiratory Rate Blood Pressure 191/86 H Pulse Oximetry 98 98 Oxygen Delivery Method 01/11/23 11:10 01/11/23 11:29 01/11/23 11:29 Temperature 97.9 F Pulse Rate 79 80 Pulse Rate [Left Dorsalis Pedis] 86 Respiratory Rate 16 Blood Pressure 191/86 H Pulse Oximetry 99 95 Oxygen Delivery Method Room Air 01/11/23 11:30 01/11/23 11:30 01/11/23 11:46 Temperature Pulse Rate 80 Pulse Rate [Left Dorsalis Pedis] Respiratory Rate Blood Pressure 165/72 H 164/72 H Pulse Oximetry 95 Oxygen Delivery Method 01/11/23 11:46 01/11/23 12:00 01/11/23 12:00 Temperature Pulse Rate 81 79 Pulse Rate [Left Dorsalis Pedis] Respiratory Rate 18 Blood Pressure 164/79 H Pulse Oximetry 97 97 Oxygen Delivery Method 01/11/23 12:30 01/11/23 12:30 01/11/23 13:08 Temperature Pulse Rate 78 83 Pulse Rate [Left Dorsalis Pedis] Respiratory Rate 19 Blood Pressure 154/68 H Pulse Oximetry 94 Oxygen Delivery Method 01/11/23 13:30 01/11/23 13:47 01/11/23 13:47 Temperature Pulse Rate 83 80 Pulse Rate [Left Dorsalis Pedis] Respiratory Rate 23 23 Blood Pressure 172/73 H Pulse Oximetry 95 95 Oxygen Delivery Method 01/11/23 13:51 01/11/23 14:00 01/11/23 14:00 Temperature 98.7 F Pulse Rate 80 78 Pulse Rate [Left Dorsalis Pedis] Respiratory Rate 18 16 Blood Pressure 172/73 H 155/62 H Pulse Oximetry 98 Oxygen Delivery Method 01/11/23 14:07 01/11/23 14:09 01/11/23 14:09 Temperature 98.4 F Pulse Rate 82 78 Pulse Rate [Left Dorsalis Pedis] Respiratory Rate 16 18 Blood Pressure 152/70 H 152/70 H Pulse Oximetry 95 Oxygen Delivery Method 01/11/23 14:30 01/11/23 14:30 Temperature Pulse Rate 80 Pulse Rate [Left Dorsalis Pedis] Respiratory Rate 20 Blood Pressure 169/76 H Pulse Oximetry 96 Oxygen Delivery Method MDM - Extremity Injury (Lower) Lab Data 01/11/23 11:15 01/11/23 11:15 Labs: Lab Results 01/11/23 01/11/23 01/11/23 Range/Units 11:15 12:05 13:30 WBC 2.1 L (4.5-11.0) X10^3/uL RBC 1.97 L (4.0-5.2) X10^6/uL Hgb 7.0 L (12.0-16.0) g/dL Hct 20.8 L* (36-46) % MCV 105.6 H (80-100) fL MCH 35.7 H (26-34) PG MCHC 33.8 (30-36) % RDW 18.3 H (11.6-14.8) % Plt Count 132 L (150-400) X10^3/uL Neut % (Auto) 75.7 H (50-75) % Lymph % (Auto) 12.1 L (25-40) % Blair % (Auto) 3.9 (3-14) % Eos % (Auto) 6.8 H (2-4) % Baso % (Auto) 1.5 (0-2) % Neut # (Auto) 1600 (0368-8216) /uL Lymph # (Auto) 200 L (1948-7841) /uL Blair # (Auto) 100 (0-900) /uL Eos # (Auto) 100 (0-450) /uL Baso # (Auto) 0 (0-100) /uL Sodium 134 L (137-145) mmol/L Potassium 4.4 (3.4-5.1) mmol/L Chloride 104 (98-107) mmol/L Carbon Dioxide 24 (22-32) mmol/L BUN 22 H (7-17) mg/dL Creatinine 0.96 (0.52-1.04) mg/dL Estimated GFR > 60 (>60) mL/min BUN/Creatinine Ratio 22.9 H (6-22) Glucose 110 (80-110) mg/dL Calcium 9.8 (8.4-10.2) mg/dL Total Bilirubin 0.9 (0.2-1.3) mg/dL AST 36 (14-36) IU/L ALT 21 (<35) IU/L Alkaline Phosphatase 106 (38-126) U/L Total Creatine Kinase 142 H (30-135) U/L Troponin I 0.046 H 0.047 H (0.01-0.034) ng/mL Total Protein 6.8 (6.3-8.2) g/dL Albumin 3.7 (3.5-5.0) g/dL Globulin 3.1 (1.7-4.1) g/dL Albumin/Globulin Ratio 1.2 (1.0-2.8) Lipase 21 L (23-300) U/L Blood Type B Negative Antibody Screen Negative Crossmatch See Detail Urine Dip Bedside Urine Glucose Negative Bedside Urine Bilirubin - Negative Bedside Urine Ketone - Negative Urine Specific [place] 1.020 Bedside Urine Occult Blood - Negative Bedside Urine pH 5.5 Bedside Urine Protein - Negative Bedside Urine Urobilinogen - Negative Bedside Urine Nitrite - Negative Bedside Urine Leukocytes - Negative Esterase Imaging Data Chest x-ray: Radiologist's Impression: PROCEDURE: XR CHEST 1V INDICATIONS: chest pain TECHNIQUE: One view of the chest was acquired. COMPARISON: [facility], , XR CHEST 1V, 11/16/2020, 14:42. FINDINGS: Surgical changes and devices: Left-sided Port-A-Cath in good position. Surgical clips project over the left axilla and breast Lungs and pleura: Lungs are clear. No pleural effusions or pneumothorax. Mediastinum: Mediastinal contours appear normal. Heart size is normal. Bones and chest wall: No suspicious bony lesions. Overlying soft tissues appear unremarkable. IMPRESSION: No acute findings Approved by: Surendra Suggs M.D. on 01/11/2023 at 11:39 Extremity x-ray #1: Radiologist's Impression: PROCEDURE: XR HIP W PEL IF DONE LT 2V INDICATIONS: pain TECHNIQUE: 2 views of the hip were acquired. COMPARISON: [facility], CR, XR HIP W PEL IF DONE RT 2V, 07/09/2022, 10:48. FINDINGS: Bones: No fractures or dislocations. No suspicious bony lesions. The visualized pelvic ring appears intact. Mild bilateral acetabular joint space narrowing noted. Femoral heads have an appropriate contour. Degenerative changes noted in the lower lumbar spine Soft tissues: No suspicious soft tissue calcifications or masses. IMPRESSION: Mild bilateral hip osteoarthritis. Degenerative disc disease and arthropathy in the lower lumbar spine Approved by: Surendra Suggs M.D. on 01/11/2023 at 11:53 CT scan - abdomen/pelvis: Radiologist's Impression: PROCEDURE: CT ABDOMEN PELVIS W CON INDICATIONS: pain left hip area with anemia TECHNIQUE: After the administration of intravenous contrast, axial sections acquired from the lung bases to the pubic symphysis. Coronal and sagittal reformats were performed. For radiation dose reduction, the following was used: automated exposure control, adjustment of mA and/or kV according to patient size. COMPARISON: [facility], , MR LUMBAR SPINE WO/W CON, 09/08/2022, 15:19. FINDINGS: Lower thorax: The lung bases are clear. Heart size normal. No hiatal hernia. Liver: Low-density hepatic metastasis noted, largest in the left hepatic lobe measures 2.5 cm. Biliary system: No calcified cholelithiasis or pericholecystic inflammation. No intra or extrahepatic bile duct dilatation. Pancreas: Unremarkable without mass or inflammation evident. Spleen: Normal in size and density. Adrenals: Normal morphology and density. Reproductive system: Unremarkable as visualized. Urinary system: Normal renal size and attenuation. No renal calculi, hydronephrosis, or solid mass present. Urinary bladder unremarkable. Gastrointestinal system: The bowel is unremarkable without evidence of bowel obstruction or inflammation. The stomach appears unremarkable. Appendix: No findings to suggest acute appendicitis. Peritoneal spaces: No mesenteric or retroperitoneal adenopathy. No free air. No free fluid. Vasculature: The IVC, aorta and iliac vasculature are unremarkable. Abdominal wall: Abdominal wall intact without evidence of ventral or inguinal hernias. Musculoskeletal: T9 wedge-shaped compression fracture. 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 Bilateral sacral fractures are partially healed, probable pathologic fractures. Acute appearing fractures noted on the left. Acute tearing fracture through the left inferior pubic ramus noted as well. IMPRESSION: 1. Acute on chronic bilateral sacral fractures, probable pathologic fractures. More acute fracture noted in the left. Acute left inferior pubic rami fracture. 2. T10 osteoblastic metastasis. Metastatic marrow replacement in the lumbar spine is better depicted on the prior MRI. 3. At least 2 hypodense metastatic hepatic lesions. Approved by: Surendra Suggs M.D. on 01/11/2023 at 13:20 ECG Data Interpretation: Normal sinus rhythm rate 82 FL interval 156 QRS [address] changes no T- wave inversions MDM Narrative Medical decision making narrative: Patient 77-year-old female currently being treated for DCIS on Kisqali presents today with ongoing left hip and groin pain for couple of weeks and sudden onset right-sided chest pain. Chest pain is extremely reproducible in 1 particular spot concern for costochondritis. However troponins are indeterminate 0.046 and 0.047 without EKG changes. Act that this may be from anemia. I think unlikely to be acute coronary syndrome. She has a hemoglobin today of 7.0 lower than previously at 8.6 with a hematocrit of 20.8 and previously 25.1. She is not hypotensive or tachycardic or hypoxic. She is not really symptomatic but anemia has definitely got an worse. Seem reasonable for blood transfusion. CT confirms that she has sacral fracture on the left and left pubic rami fracture which would explain her ongoing groin pain. She was walking on it which is reasonable. Contacted Orthopedics Dr. Celaya who agrees with toe touching pain control and walker. Dr. Salvador updated on patient's symptoms test results and agrees accepts patient to observation Discharge Plan Departure Patient Disposition: Admitted as Observation Clinical Impression: Anemia, Pathological fracture of sacral vertebra, Fracture of left inferior pubic ramus, Acute costochondritis Admit Date/Time: 01/11/23 14:39 Admit Provider: Odalys Salvador
[2023-01-11 11:39] LABS: Alanine Aminotransferase 21 IU/L (<35); Albumin 3.7 g/dL (3.5-5.0); Albumin Globulin Ratio 1.2 (1.0-2.8); Alkaline Phosphatase 106 U/L (38-126); Aspartate Aminotransferase 36 IU/L (14-36); BUN Creatinine Ratio 22.9 (6-22); Bilirubin Total 0.9 mg/dL (0.2-1.3); Blood Urea Nitrogen 22 mg/dL (7-17); Calcium 9.8 mg/dL (8.4-10.2); Carbon Dioxide 24 mmol/L (22-32); Chloride 104 mmol/L (98-107); Creatine Kinase 142 U/L (30-135); Estimated Glomerular Filt Rate > 60 mL/min (>60); Globulin 3.1 g/dL (1.7-4.1); Glucose 110 mg/dL (80-110); HEMOLYSIS 41 (0-50); Lipase 21 U/L (23-300); Potassium 4.4 mmol/L (3.4-5.1); Sodium 134 mmol/L (137-145); Total Protein 6.8 g/dL (6.3-8.2)
[2023-01-11 11:48] LABS: Hematocrit 20.8 % (36-46)
[2023-01-11 11:52] LABS: Troponin I 0.046 ng/mL (0.01-0.034)
[2023-01-11] MEDS: KETOROLAC 30 MG/ML VIAL 15 MG IV (12:01)
--- NOTE | 2023-01-11 12:54 | DI.CT.S_ITS ---
PROCEDURE: CT ABDOMEN PELVIS W CON INDICATIONS: pain left hip area with anemia TECHNIQUE: After the administration of intravenous contrast, axial sections acquired from the lung bases to the pubic symphysis. Coronal and sagittal reformats were performed. For radiation dose reduction, the following was used: automated exposure control, adjustment of mA and/or kV according to patient size. COMPARISON: [facility], MR, MR LUMBAR SPINE WO/W CON, 09/08/2022, 15:19. FINDINGS: Lower thorax: The lung bases are clear. Heart size normal. No hiatal hernia. Liver: Low-density hepatic metastasis noted, largest in the left hepatic lobe measures 2.5 cm. Biliary system: No calcified cholelithiasis or pericholecystic inflammation. No intra or extrahepatic bile duct dilatation. Pancreas: Unremarkable without mass or inflammation evident. Spleen: Normal in size and density. Adrenals: Normal morphology and density. Reproductive system: Unremarkable as visualized. Urinary system: Normal renal size and attenuation. No renal calculi, hydronephrosis, or solid mass present. Urinary bladder unremarkable. Gastrointestinal system: The bowel is unremarkable without evidence of bowel obstruction or inflammation. The stomach appears unremarkable. Appendix: No findings to suggest acute appendicitis. Peritoneal spaces: No mesenteric or retroperitoneal adenopathy. No free air. No free fluid. Vasculature: The IVC, aorta and iliac vasculature are unremarkable. Abdominal wall: Abdominal wall intact without evidence of ventral or inguinal hernias. Musculoskeletal: T9 wedge-shaped compression fracture. 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 Bilateral sacral fractures are partially healed, probable pathologic fractures. Acute appearing fractures noted on the left. Acute tearing fracture through the left inferior pubic ramus noted as well. IMPRESSION: 1. Acute on chronic bilateral sacral fractures, probable pathologic fractures. More acute fracture noted in the left. Acute left inferior pubic rami fracture. 2. T10 osteoblastic metastasis. Metastatic marrow replacement in the lumbar spine is better depicted on the prior MRI. 3. At least 2 hypodense metastatic hepatic lesions. Approved by: Surendra Suggs M.D. on 01/11/2023 at 13:20
[2023-01-11 14:05] LABS: Troponin I 0.047 ng/mL (0.01-0.034)
[2023-01-11] MEDS: ACETAMINOPHEN 325 MG TABLET 650 MG PO ×2 (16:32→20:03)
--- NOTE | 2023-01-11 16:50 | PM.HP.1 ---
History of Present Illness History of Present Illness Chief complaint: chest px Narrative: 76-year-old female with metastatic breast cancer diagnosed in 2013. Initially diagnosed on the right side, ER positive, ME positive, HER2 negative invasive ductal carcinoma. She was found to have metastases to axillary lymph nodes bilaterally, large left multiple supraclavicular and cervical lymph nodes, and subcentimeter right hilar nodes. She received chemo shortly after diagnosis. 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 She is remote history of cervical cancer diagnosed in 1986, in remission after hysterectomy. MRI performed in 2019 showed a 1.6 cm enhancing lesion in the left margin of the S1 vertebral body, suspicious for metastasis. Tumor board recommended Radiation Oncology evaluation, but patient declined. In 2020, repeat PET scan was done she underwent 10 treatments of radiation therapy. In April of 2021, CT of the chest, abdomen, and pelvis showed no interval intrathoracic change. The left sacral lesion was increased at 1.9 cm, up from 1.5 cm. In August 2021 follow-up imaging showed unchanged lytic lesion of S1 and no new or enlarging metastases. In October of 2021, bone scan showed suspected metastatic disease in the sacrum. No other osseous metastasis were noted. During her most recent visit with Oncology in August of this year, patient complained of low back pain. At that time they felt it was likely secondary to degenerative changes and sciatica, rather than her metastatic breast cancer. He recommended 3 month follow-up with a PET scan. MRI done in August of 2022 revealed multifocal metastatic disease throughout the entire lumbar spine, including posterior elements, sacrum, and visualized iliac bones. No epidural extension was noted. She saw pain management in August of 2022 with recommendations to initiate Lyrica 25 mg 3 times daily as well as a 5% lidocaine patch. She followed up with Oncology September 30 and due to concerning findings on the MRI, PET scan was subsequently ordered for October 09. That was not accomplished. Today, she presented to the emergency department complaining of left inguinal groin pain for a couple of weeks pain in her right chest as well. Chest x-ray revealed no acute findings. Hip x-ray revealed mild bilateral hip osteoarthritis. Degenerative disc disease and arthropathy noted in the lower lumbar spine. CT of the abdomen and pelvis revealed a T9 wedge shaped compression fracture, T10 osteoblastic metastasis, L5 and sacral lytic blastic metastatic disease. Bilateral sacral fractures are partially healed felt likely to be pathologic in nature. Acute appearing fractures noted on the left. Acute appearing fracture through the left inferior pubic ramus as well. She was additionally noted to have at least 2 hypodense metastatic hepatic lesions. Labs revealed pancytopenia with a white blood cell count of 2.1 (consistent with previous), hemoglobin of 7.0 which is down from previous baseline of 8.6, hematocrit 20.8, platelets 132. Troponin was very minimally elevated at 0.046 and 0.047 on repeat. She is presently on Kisqali for her cancer, which is known to cause prolonged qt. This has been followed by oncology. Due to her pain and progressive anemia, admission was recommended. She reports that she had been doing reasonably well until 2 days prior to admission. She states her pain became fairly intense on that day and she is been unable to mobilize for the past 2 days. Prior to that, she notes her pain was reasonably well controlled with 1 hydrocodone and 3 ibuprofen twice a day and an occasional ibuprofen mid day. She notes she does live alone but has family nearby who was available to help her if needed. She did have a PET scan in November and notes that her oncologist told her her disease appeared to be quiescent. Notes today she was turning her torso and felt a pop in her right chest and has had pain since then. [facility] Medical History Lumbar facet arthropathy Lumbar spondylosis Osteoarthritis, hip, bilateral Low back pain Lumbar radiculopathy Breast cancer, right (2005) Cervical cancer (1986) Palpitations HLD (hyperlipidemia) Partial tear of right rotator cuff Subacromial impingement of right shoulder Hypothyroid URI (upper respiratory infection) Surgical History History of biopsy (11/16/13) History of hysterectomy Social History household members: none Smoking Status: Never smoker alcohol intake: former Meds Home Medications and Allergies Home Medications Medication Instructions Recorded Confirmed Type fluticasone propionate 50 1 spray intranasal QDAY ##0 08/01/16 01/11/23 History mcg/actuation nasal spray,suspension (Flonase Allergy Relief) aspirin 81 mg tablet,delayed 81 mg PO QDAY ##0 02/13/17 01/11/23 History release levothyroxine 50 mcg tablet 50 mcg PO DAILY 05/07/18 01/11/23 History omeprazole 20 mg capsule,delayed 20 mg PO DAILY 05/07/18 01/11/23 History release ibuprofen 200 mg capsule (Motrin 400 mg PO BID 06/04/18 01/11/23 History IB) cholecalciferol (vitamin D3) 50 50 mcg PO DAILY 08/02/21 01/11/23 History mcg (2,000 unit) capsule (Vitamin D3) hydrocodone 5 mg-acetaminophen 325 1 tab PO BID 08/27/22 01/11/23 History mg tablet rosuvastatin 5 mg tablet 5 mg PO DAILY 08/27/22 01/11/23 History letrozole 2.5 mg tablet 2.5 mg PO DAILY breast cancer #90 09/02/22 01/11/23 Rx tabs lidocaine 5 % topical patch 1 patch topical DAILY #30 patches 11/18/22 01/11/23 Rx Marizol-[place] 2 tab PRN Indigestion 01/11/23 History Estroven 1 tab PO DAILY 01/11/23 01/11/23 History Kisqali 600 mg PO DAILY Cancer 01/11/23 01/11/23 History Tylenol Arthritis 650 mg PO PRN Arthritis pain 01/11/23 History Zyrtec 1 tab PO 01/11/23 History Allergies Allergy/AdvReac Type Severity Reaction Status Date / Time latex Allergy Intermediate Hives Verified 09/10/22 15:14 banana Allergy Unknown SCRATCHY Verified 09/10/22 15:14 THROAT shellfish derived Allergy Unknown ITCH/RASH, Verified 09/10/22 15:14 SCRATCHY THROAT Review of Systems Review of Systems Narrative: All other systems were reviewed negative Exam Vital Signs (past 8 hours): - 01/11/23 11:06 01/11/23 11:07 01/11/23 11:07 Temperature Pulse Rate 85 85 Pulse Rate [Left Dorsalis Pedis] Respiratory Rate Blood Pressure 191/86 H Pulse Oximetry 98 98 Oxygen Delivery Method 01/11/23 11:10 01/11/23 11:29 01/11/23 11:29 Temperature 97.9 F Pulse Rate 79 80 Pulse Rate [Left Dorsalis Pedis] 86 Respiratory Rate 16 Blood Pressure 191/86 H Pulse Oximetry 99 95 Oxygen Delivery Method Room Air 01/11/23 11:30 01/11/23 11:30 01/11/23 11:46 Temperature Pulse Rate 80 Pulse Rate [Left Dorsalis Pedis] Respiratory Rate Blood Pressure 165/72 H 164/72 H Pulse Oximetry 95 Oxygen Delivery Method 01/11/23 11:46 01/11/23 12:00 01/11/23 12:00 Temperature Pulse Rate 81 79 Pulse Rate [Left Dorsalis Pedis] Respiratory Rate 18 Blood Pressure 164/79 H Pulse Oximetry 97 97 Oxygen Delivery Method 01/11/23 12:30 01/11/23 12:30 01/11/23 13:08 Temperature Pulse Rate 78 83 Pulse Rate [Left Dorsalis Pedis] Respiratory Rate 19 Blood Pressure 154/68 H Pulse Oximetry 94 Oxygen Delivery Method 01/11/23 13:30 01/11/23 13:47 01/11/23 13:47 Temperature Pulse Rate 83 80 Pulse Rate [Left Dorsalis Pedis] Respiratory Rate 23 23 Blood Pressure 172/73 H Pulse Oximetry 95 95 Oxygen Delivery Method 01/11/23 13:51 01/11/23 14:00 01/11/23 14:00 Temperature 98.7 F Pulse Rate 80 78 Pulse Rate [Left Dorsalis Pedis] Respiratory Rate 18 16 Blood Pressure 172/73 H 155/62 H Pulse Oximetry 98 Oxygen Delivery Method 01/11/23 14:07 01/11/23 14:09 01/11/23 14:09 Temperature 98.4 F Pulse Rate 82 78 Pulse Rate [Left Dorsalis Pedis] Respiratory Rate 16 18 Blood Pressure 152/70 H 152/70 H Pulse Oximetry 95 Oxygen Delivery Method 01/11/23 14:30 01/11/23 14:30 01/11/23 15:00 Temperature Pulse Rate 80 81 Pulse Rate [Left Dorsalis Pedis] Respiratory Rate 20 22 Blood Pressure 169/76 H Pulse Oximetry 96 97 Oxygen Delivery Method 01/11/23 15:01 01/11/23 15:01 01/11/23 16:28 Temperature 97.9 F Pulse Rate 82 78 Pulse Rate [Left Dorsalis Pedis] Respiratory Rate 29 H 17 Blood Pressure 190/84 H 172/77 H Pulse Oximetry 96 Oxygen Delivery Method Oxygen Delivery Method Room Air Narrative Exam Narrative: GEN: Very pleasant elderly female, Alert and oriented x3, no acute distress HEENT: Normocephalic, face symmetric, pupils equal round reactive to light, extraocular movements intact, sclerae anicteric, conjunctiva pale but clear, nares patent, oropharynx reveals an intact soft and hard palate with moist mucous membranes, dentition is fair NECK: Supple, no lymphadenopathy, thyroid without enlargement or nodularity, carotids no bruits CHEST: Respiratory excursions symmetric, clear to auscultation bilaterally CV: Regular rate and rhythm, no murmurs, rubs, gallops, PMI nondisplaced ABD: Soft, nontender, nondistended, bowel sounds present in all 4 quadrants, no organomegaly or masses appreciated EXTR: Warm, well perfused, no clubbing/cyanosis/edema, she does have bruising and mild swelling about her left lateral malleolus SKIN: Warm and dry, without rash, scattered bruises to the forearms NEURO: Alert and oriented x3, grossly intact PSYCH: Mood and affect is within normal limits, judgment and insight are appropriate Objective Labs 01/11/23 11:15 01/11/23 11:15 Labs: Laboratory Results - last 24 hr 01/11/23 01/11/23 01/11/23 11:15 12:05 13:30 WBC 2.1 L RBC 1.97 L Hgb 7.0 L Hct 20.8 L* MCV 105.6 H MCH 35.7 H MCHC 33.8 RDW 18.3 H Plt Count 132 L Neut % (Auto) 75.7 H Lymph % (Auto) 12.1 L [place] % (Auto) 3.9 Eos % (Auto) 6.8 H Baso % (Auto) 1.5 Neut # (Auto) 1600 Lymph # (Auto) 200 L [place] # (Auto) 100 Eos # (Auto) 100 Baso # (Auto) 0 Sodium 134 L Potassium 4.4 Chloride 104 Carbon Dioxide 24 BUN 22 H Creatinine 0.96 Estimated GFR > 60 BUN/Creatinine Ratio 22.9 H Glucose 110 Calcium 9.8 Total Bilirubin 0.9 AST 36 ALT 21 Alkaline Phosphatase 106 Total Creatine Kinase 142 H Troponin I 0.046 H 0.047 H Total Protein 6.8 Albumin 3.7 Globulin 3.1 Albumin/Globulin Ratio 1.2 Lipase 21 L Blood Type B Negative Antibody Screen Negative Crossmatch See Detail Assessment & Plan Assessment & Plan narrative: 1. Pathologic fractures involving T10, L5, and sacral lytic metastatic disease. Patient presented with increasing pain and debility related to pathologic fractures from her metastatic breast cancer. She is had known sacral metastatic disease which had been increasing despite prior radiation therapy. She will be admitted for conservative treatment with pain medications and PT evaluation for safety with mobility. 2. T9 wedge shaped compression fracture Maybe secondary to osteopenia. No clear pathologic lesion at this level. 3. Left inferior pubic ramus fracture This appears to be acute as well. As above, will work on analgesia and mobility. 4. Anemia Progressive anemia, likely related to her metastatic disease. Will transfuse and monitor. 5. Metastatic breast cancer She is followed by Dr. Moody locally. We will continue her usual outpatient letrozole and Kisqali. Given new evidence of metastasis in her liver, as well as pain to the right chest, will plan to obtain a chest CT to assess further. 6. GERD Continue omeprazole Code status Patient reports historically she would immediately have said she was a full code. She states she is uncertain now, but not ready to change to DNR. We will continue full code for now. Prophylaxis Will defer chemical prophylaxis tonight. If her hemoglobin is stable in the morning, will add Lovenox. Disposition Admit under observation status
[2023-01-11] MEDS: ASPIRIN EC 81 MG TABLET PO (17:02)
[2023-01-11] MEDS: SENNOSIDES 8.6 MG TABLET 17.2 MG PO (20:03)
[2023-01-12] VITALS: BP 152/87; PULSE 84; RESP 18; TEMP 36.6; O2SAT 96
[2023-01-12] MEDS: FAMOTIDINE 20 MG TABLET PO ×2 (00:24→08:59)
[2023-01-12] MEDS: CALCIUM CARBONATE 500 MG TAB 1000 MG PO ×3 (03:08→21:13)
[2023-01-12 03:30] VITALS: PULSE 74; RESP 18; TEMP 36.7; O2SAT 93
[2023-01-12] MEDS: ACETAMINOPHEN 325 MG TABLET 650 MG PO ×3 (03:36→20:14)
[2023-01-12 03:53] VITALS: BP 152/67; PULSE 74
--- NOTE | 2023-01-12 03:55 | PC.NURSE ---
Patient is AxOx4, VSS, O2 sats in the mid 90's on RA, hypertensive w/ systolic in the 140's-150's. Pain 4-5/10 in the center of the chest that increases w/ movement and taking deep breaths & pain in the left inguinal groin area. Scheduled Tylenol given w/ good effect. Patient had complaints of acid reflux and requested Tums, MD Gomez notified, new medications ordered and given. Patient had x1 small unmeasured void @ midnight, d/t no urine output since then - bladder scanned @ 0300 which showed 800cc, [place] placed, 875cc urine out. Small BM during the night.
[2023-01-12 05:53] LABS: Hematocrit 25.2 % (36-46); Hemoglobin 8.7 g/dL (12.0-16.0)
[2023-01-12] MEDS: LEVOTHYROXINE 50 MCG TABLET PO (06:08)
[2023-01-12] MEDS: PANTOPRAZOLE DR 20 MG TABLET PO (06:08)
[2023-01-12 08:00] VITALS: BP 145/69; PULSE 77; RESP 16; TEMP 36.2; O2SAT 96
[2023-01-12] MEDS: LETROZOLE 2.5 MG TABLET PO (08:58)
[2023-01-12] MEDS: CHOLECALCIFEROL (VITAMIN D3) 1,000 UNIT TABLET 1000 UNIT PO (08:59)
[2023-01-12] MEDS: OXYCODONE IR 5 MG TABLET PO ×2 (08:59→14:51)
[2023-01-12] MEDS: ASPIRIN EC 81 MG TABLET PO (08:59)
--- NOTE | 2023-01-12 11:04 | PT.IIE ---
Surgical History (Last Reviewed 01/11/23 @ 11:50 by Maxine Rangel DO) History of biopsy (11/16/13) History of hysterectomy Medical History (Last Reviewed 01/11/23 @ 11:50 by Maxine Rangel DO) Breast cancer, right (2005) Cervical cancer (1986) HLD (hyperlipidemia) Hypothyroid Low back pain Lumbar facet arthropathy Lumbar radiculopathy Lumbar spondylosis Osteoarthritis, hip, bilateral Palpitations Partial tear of right rotator cuff Subacromial impingement of right shoulder URI (upper respiratory infection) Physical Therapy Inpatient Evaluation/Re-Eval M1 PT/OT-IP Prior Functional Status Start: 01/12/23 13:03 Freq: NEEDED Status: Active Protocol: Document 01/12/23 13:03 AB (Rec: 01/12/23 13:31 AB [id number]) Medical Review Prior Functional Status Medical History Reviewed Yes Communication Pt is able to express all needs. Mobility and Gait Pt reports she ambulated with SPC for community distances and furniture surfed before her groin pain began a couple of weeks ago, however as her pain increased she began using 4WW. Activities of Daily Living and IADL's Pt was previously independent with ADLs and low level IADLs. Prior Functional Level (Other details) Was attending outpatient PT for her groin pain. Social History Household Members none Living Arrangements House Number of Floors (Floors) One Floor Number of Stairs To Enter/Railing? 2 FELISA with bilateral hand rails that are close enough for her to use both sides. 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 She believes they may be able to adjust their work schedules to assist her as needed. M2 PT-IP Current Condition Start: 01/12/23 13:03 Freq: NEEDED Status: Active Protocol: Document 01/12/23 13:03 AB (Rec: 01/12/23 13:31 AB [id number]) Physical Therapy Current Condition Current Condition Evaluation Date 01/12/23 Treatment Diagnosis pathological fx of sacrum and left inferior pubic ramus Onset Date 01/11/23 M3 PT-IP Subjective Start: 01/12/23 13:03 Freq: NEEDED Status: Active Protocol: Document 01/12/23 13:03 AB (Rec: 01/12/23 13:31 AB [id number]) Subjective Physical Therapy Visit Type Type Initial Evaluation Visit Start Time 10:22 Visit Stop Time 11:04 Total Visit Minutes 42 Notes MD would like pt to be medicated prior to PT (pt was medicated 1 hr before eval) and recommends TTWB on LLE for pain control. Physical Therapy Visit Comments Patient Comments Pt presents semi supine in bed and is agreeable to PT evaluation. She reports her pain at rest is 1-2/10 in her chest and 0/10 in her hip, but both increase significantly with movement. Therapy Pain Assessment Pain When Pain Assessed During Mobility Pain Present Pain Present Pain Reported Location Left Groin Intensity 9 Scale Used Numeric (0 - 10) Description Pressure,Sharp,With Movement Pain Behaviors Facial Grimacing Pain Management Techniques Re-positioning,Timing of Activity with Medications Right Chest Intensity 9 Scale Used Numeric (0 - 10) Description Sharp,With Movement Pain Behaviors Facial Grimacing Pain Management Techniques Re-positioning,Timing of Activity with Medications M4 PT-IP Mobility and Gait Start: 01/12/23 13:03 Freq: NEEDED Status: Active Protocol: Document 01/12/23 13:03 AB (Rec: 01/12/23 13:31 AB [id number]) PT-Bed Mobility Assessment Supine to Sit Supine to Sit Standby Assistance Scooting Scooting to Edge of Bed Standby Assistance PT-Transfer Assessment Sit to and From Stand Sit to and from Stand Standby Assistance,Contact Guard Assistance Equipment Transfer Assistive Device Gait Belt,Front Wheeled Walker Orthotic/Prosthetic Devices or Brace: No Transfers Transfer Destination Chair Transfer Technique Stand Step Pivot Transfer Ability Level of Assist Standby Assistance,Contact Guard Assistance Comments Mobility Comments The pt is able to perform supine<>sit by propping up on her elbow then sitting up, and is able to move legs to EOB with SBA and no significant pain in LLE, though she reports increased chest pain requiring her to take a break while sitting at EOB. She is also able to scoot to reach feet to floor with SBA. PT educated pt on TTWB and demonstrated how to perform STS while maintaining TTWB, however pt then proceeds to perform STS with increased WB through LLE, which increased her pain symptoms. In standing PT instructed pt to shift weight to RLE, but pt reports that this movement also significantly increases her pain in her LLE and using her UEs more causes increased pain in her chest. PT instructed pt on how to perform stand step pivot transfer. The pt then performed stand step pivot transfer to chair with SBA/CGA and FWW, but again puts more weight through LLE than is currently recommended for pain control. Once seated and reclined in chair, the pt reports her pain in chest and LLE go back down to 1/10. At end of session pt is left resting comfortably in chair with all needs are met and call light within reach. RN was notified of findings. Gait Assessment Comments Gait Comments NT due to pain symptoms and weakness. Stair Climbing Assessment Comments Stair Climbing Comments NT due to pain symptoms and weakness. PT-Balance Assessment Sitting Balance and Reactions Static Sitting Balance Ability Normal Dynamic Sitting Balance Ability Normal Standing Balance and Reactions Static Standing Balance Ability Fair Dynamic Standing Balance Ability Poor Device Used FWW M5 PT-IP Objective Assessments Start: 01/12/23 13:03 Freq: NEEDED Status: Active Protocol: Document 01/12/23 13:03 AB (Rec: 01/12/23 13:31 AB [id number]) Orientation Orientation/Cognition Level of Alertness Alert Orientation Name,Age,Birthday,Month,Date, Year,Day of Week,Place, Situation Language Function Ability No Deficits Noted Safety Awareness Understands Safety Issues Memory Description No Deficits Noted Gross Range of Motion Upper Extremity ROM Assessment Within Functional Limits Lower Extremity ROM Assessment Left Impaired Strength Upper Extremity Strength Assessment Within Functional Limits Lower Extremity Strength Assessment Left Impaired M6 PT-IP Treatment Start: 01/12/23 13:03 Freq: NEEDED Status: Active Protocol: Document 01/12/23 13:03 AB (Rec: 01/12/23 13:31 AB [id number]) Physical Therapy Treatment Education Education Provided Precautions,Weight Bearing Status,Safety Brace Education Patient M7 PT-IP Assessment and Plan Start: 01/12/23 13:03 Freq: NEEDED Status: Active Protocol: Document 01/12/23 13:03 AB (Rec: 01/12/23 13:31 AB [id number]) PT Summary Assessment and Plan Potential Rehabilitation Potential Fair Status of Condition at Evaluation Evolving Summary Impairments Pain,ROM,Strength,Balance,Bed Mobility,Transfers,Gait, Activity Tolerance Assessment Summary Shonda Hankins is a 77 year old female patient presenting with pathological fractures of sacrum and left inferior pubic ramus, and acute costochondritis, as well as a number of comorbidities. Today 's PT evaluation revealed the pt requires SBA for bed mobility, and SBA/CGA for STS and transfers with FWW, though pt has trouble maintaining TTWB recommendation for LLE due to RLE and BUE weakness and pain symptoms in chest and LLE. The pt was unable to tolerate further mobility due to pain symptoms and weakness. Based on her current level of function, PT recommends discharge to SNF vs home health with 24/7 assistance and HHPT. However, discharge disposition may change based on the pt's progress. The pt would benefit from skilled PT during her hospitalization, and frequency may change from 1x/day to 2x/day based on tolerance. Goals Bed Mobility Goal Independent Transfer Goal Independent,Front Wheeled Walker Gait Goal Standby Assistance,Front Wheel Walker Gait Distance 10 Other Goals Pt to perform transfer independently with FWW while maintaining weight bearing recommendations to show improving strength to perform functional mobility. Pt to ambulate 10ft with FWW and SBA to show improving strength and tolerance to activity. Days to Meet Goals 10 Frequency of Treatment Frequency Of Treatment Once a Day Treatment Plan Physical Therapy Treatment Plan Bed Mobility Training,Transfer Training,Gait Training, Therapeutic Exercise,Balance Retraining,Discharge Planning, Hot or Cold Pack,Neuromuscular Re-ed,Coordination Retraining ,Manual Therapy Other Recommendations and Next Treatment Continue working on TTWB Focus status and use of FWW for transfers. Attempt ambulation as able. Precautions Other Precautions MD would like pt to be medicated prior to PT and recommends TTWB on LLE for pain control. Weight Bearing Status Weight Bearing Status Touch Down Weight Bearing Recommendations To Nursing Amount of Assist Needed 1 Person Assist Discharge Recommendations PT Discharge Recommendations Home with 24/7 Assist Available,Home Health,Home vs SNF Equipment Needed for Home Before FWW Discharge Transportation Needs at Discharge Private Vehicle,Wheelchair/ Cabulance
--- NOTE | 2023-01-12 12:01 | CM.DANOTE ---
DCP: Case received, EMR reviewed and met with patient. Introduced self and role. Was able to obtain information regarding patient's baseline activity level at home prior to admit. DCP assessment completed with information currently available. Patient is a 77 year old female who admitted yesterday afternoon to the care of the hospitalist team. PCP: Dr. Chisholm. Payer: confirmed: [facility]. Patient came to the hospital via ambulance secondary to having left inguinal groin pain, and worsening discomfort, to the point that she can barely walk. Patient has history of breast cancer, she is currently on oral chemo. Notes also indicate that patient complained of pain in her chest, felt a popping on the right side of her chest. Patient noted acute fracture through left pubic ramus, L5 sacral lytic fracure. Patient notes pathologic fractures involving T10, L5, and sacral lytic metastatic disease. She is admitted for pain control, and will be working with therapy. Met with patient in her room. She is pleasant, confirmed that she lives alone in [place], her spouse last year. She has some family in [place], daughter and grand children. She indicated that prior to , when symptoms started, she has been independent, driving. Now, family has been assisting. They take intervals, since daughter works some days, grand children can assist the others, and take turns. She has been using her spouse's four wheel walker, not currently driving. Discussed home health, patient wanted to first see how she does with therapy. Patient also adamant about not wanting any mcfp. Spoke with physical therapy, recommending home health. Met with patient and daughter in the room, went over Medicare Choice List. Patient will cancel her outpatient P.T, she has been going to outpatient [facility]. After looking at list, has no preferences. Since calendar this week states [facility], will order [facility], will call to ensure that they accept her insurance. Asked about bath aide in conjuction with RN, P.T, and O.T, feels that she does not need bath aide. Will send [facility] referral. Spoke to Eloise at [facility], confirmed that they do accept insurance, and stated, should be able to accept patient, will let us know if they can't. P: DCP to continue to follow. Will send over face sheet, face to face, orders, H&P, and P.T. notes to [facility] for RN, P.T, and O.T. Have already spoke to Eloise at [facility] about referral. Ariela Marvin RN/Relief Master Discharge Planning/Care Management CM Discharge Assessment Start: 01/12/23 11:59 Freq: Status: Active Protocol: Document 01/12/23 11:59 (Rec: 01/12/23 12:01 [id number]) Discharge Planning Assessment Assigned Boatswains Mate Ariela Marvin RN/Relief Master Advance Directives? Yes: POLST Advance Directives on File Yes History Provided By Patient,Medical Record Prior Living Arrangements House Comment this year Household Members none Type of transporation used prior to Drives own vehicle admit Comment Was driving prior to , when she developed more pain . Independent with ADL's Yes Is patient alert and oriented? Yes Caregiver for Another No Comment Her spouse last year, has his four wheel walker. Patient/Family Preference Home with Home Health Comment Will use [facility], patient looked at list, no preferences, [facility] is on calendar for this week. Barriers to Discharge No Comment Family will be taking turns assisting patient. Discharge Plan Home with Home Health Transportation Arrangement Family Referrals Initiated Home Health If patient plan is home with home health Yes : Has signed face to face form been completed? Medicare Choice List Provided Yes SNF/HH Preference No preference, went by randomized calendar Has Agency SNF been contacted Yes Whiteboard Updated in Patient Room with Yes name and ext. # of Boatswains Mate Review Status In Process Next Review Type Continued Stay Review
[2023-01-12] MEDS: MORPHINE 4 MG/ML INJ 2 MG IV (14:03)
[2023-01-12 14:25] VITALS: BP 141/71; PULSE 66; RESP 16; TEMP 36.3; O2SAT 98
--- NOTE | 2023-01-12 15:04 | PM.PN.1 ---
Subjective Subjective Interval history: 76-year-old female with metastatic breast cancer diagnosed in 2013 (ER/DC positive, HER2 negative invasive ductal carcinoma). She has been undergoing active treatment with Oncology. She was admitted yesterday with pathologic fractures involving T10, L5, left inferior pubic ramus fracture, and acute on chronic fractures secondary to sacral lytic metastatic disease. Additionally, she had a T9 compression fracture. She was admitted for further evaluation and pain management. She notes she did fairly well overnight. She was medicated prior to working with physical therapy this morning. She was only able to walk 10 ft before she had to stop secondary to pain. At this point, physical therapy has recommended custodial facility versus home with home health. Patient states she spoke with her daughter and they feel they can coordinate near 24 hour level care for her and wish for her to return home. She continues to complain of some pain in her mid chest today. She reports she did attempt to have a bowel movement earlier today and became sweaty and dizzy. Exam Vital Signs (past 8 hours): - 01/12/23 08:00 01/12/23 14:25 Temperature 97.1 F L 97.3 F L Pulse Rate 77 66 Respiratory Rate 16 16 Blood Pressure 145/69 H 141/71 H Pulse Oximetry 96 98 Oxygen Flow Rate 0 0 Oxygen Delivery Method Room Air Oxygen Flow Rate 0 Narrative Exam Narrative: GEN: Elderly female, alert and oriented x 3, pale, NAD HEENT:NC, Face symmetric CHEST: Respiratory excursions symmetric, CTAB CV: RRR, no M/R/G ABD: Soft, NT/ND, BT present in all 4 quadrants, no organomegaly or masses appreciated EXTR: warm, well perfused, no C/C/E SKIN: warm and dry, no rash, persistent bruising noted to the forearms NEURO: Alert and oriented x 3, nonfocal Objective Labs 01/12/23 04:30 01/11/23 11:15 Labs: Laboratory Results - last 24 hr 01/11/23 01/12/23 12:05 04:30 Hgb 8.7 L Hct 25.2 L Crossmatch See Detail [facility] Medical History Lumbar facet arthropathy Lumbar spondylosis Osteoarthritis, hip, bilateral Low back pain Lumbar radiculopathy Breast cancer, right (2005) Cervical cancer (1986) Palpitations HLD (hyperlipidemia) Partial tear of right rotator cuff Subacromial impingement of right shoulder Hypothyroid URI (upper respiratory infection) Surgical History History of biopsy (11/16/13) History of hysterectomy Social History household members: none Smoking Status: Never smoker alcohol intake: former Assessment & Plan Assessment & Plan narrative: 1. Pathologic fractures involving T10, L5, and sacral lytic metastatic disease (as well as sclerosis/mild compression fracture involving T8 through T10 as well as a mid sternal body fracture identified on chest CT) Patient presented with increasing pain and debility related to pathologic fractures from a combination of her her metastatic breast cancer and underlying likely osteoporosis. She is had known sacral metastatic disease which had been increasing despite prior radiation therapy. She continues to have significant pain. She has received 2 doses of oxycodone 5 mg today as well as 1 dose of IV morphine 2 mg. She did not take any opioid medication overnight. She would benefit from transitioning to long-acting medication to help with more consistent pain control. Will add MS extended release this evening. At home, she typically takes 10 mg daily of hydrocodone at baseline. Will add incentive spirometry today to assist with pulmonary hygiene in the setting of her sternal fracture. Hopefully, PT can work with her again tomorrow morning. Her plan is to discharge home mid morning tomorrow. 2. T9 wedge shaped compression fracture Maybe secondary to osteopenia. No clear pathologic lesion at this level. 3. Left inferior pubic ramus fracture This appears to be acute as well. As above, will work on analgesia and mobility. She is requiring toe-touch weight-bearing presently. 4. Anemia Progressive anemia, likely related to her metastatic disease. Improved after her transfusion. Hemoglobin is up to 8.7 today. 5. Metastatic breast cancer She is followed by Dr. Moody locally. We will continue her usual outpatient letrozole and Kisqali. Unfortunately, she is had progression with metastasis to the liver as well as some increased metastasis to the bones. At this time, she is wishing to continue follow-up with Oncology. She also wants to continue taking her will cancer medications including letrozole and Kisqali, which would preclude custodial facility placement. 6. GERD Continue omeprazole Code status Patient reports historically she would immediately have said she was a full code. She states she is uncertain now, but not ready to change to DNR. We will continue full code for now. Prophylaxis Will add Lovenox due to her changes on mobility. She is high risk for DVT. No evidence bleeding. Disposition Plan to discharge home tomorrow, mid morning, as that is when her family can pick her up. She feels she has adequate nearly 24 hour care from her family. Her daughter is rearranging her home given her mobility limitations. Will likely discharge home with home health.
[2023-01-12 19:55] VITALS: BP 130/67; PULSE 79; RESP 19; TEMP 36; O2SAT 95
[2023-01-12] MEDS: OLANZapine 2.5 MG TABLET 5 MG PO (20:13)
[2023-01-12] MEDS: SENNOSIDES 8.6 MG TABLET 17.2 MG PO (20:13)
[2023-01-12] MEDS: MORPHINE ER 15 MG TABLET PO (20:13)
[2023-01-13 03:06] VITALS: BP 121/70; PULSE 73; RESP 19; TEMP 35.8; O2SAT 94
[2023-01-13] MEDS: ACETAMINOPHEN 325 MG TABLET 650 MG PO ×2 (04:23→10:35)
[2023-01-13] MEDS: LEVOTHYROXINE 50 MCG TABLET PO (05:19)
[2023-01-13] MEDS: PANTOPRAZOLE DR 20 MG TABLET PO (05:19)
[2023-01-13 05:54] LABS: Add Manual Diff / Slide Review NO; Basophils Absolute Auto 100 /uL (0-100); Basophils Percent Auto 3.3 % (0-2); Eosinophils Absolute Auto 200 /uL (0-450); Eosinophils Percent Auto 7.5 % (2-4); Hematocrit 27.3 % (36-46); Hemoglobin 9.1 g/dL (12.0-16.0); Lymphocytes Absolute Auto 600 /uL (1100-4500); Lymphocytes Percent Auto 25.3 % (25-40); Mean Corpuscular HGB Conc 33.5 % (30-36); Mean Corpuscular Hemoglobin 33.4 PG (26-34); Mean Corpuscular Volume 99.8 fL (80-100); Monocytes Absolute Auto 100 /uL (0-900); Monocytes Percent Auto 4.1 % (3-14); Neutrophils Absolute Auto 1400 /uL (1500-7000); Neutrophils Percent Auto 59.8 % (50-75); Platelet Count 101 X10^3/uL (150-400); Red Blood Cell Count 2.73 X10^6/uL (4.0-5.2); Red Cell Distribution Width 22.1 % (11.6-14.8); White Blood Cell Count 2.4 X10^3/uL (4.5-11.0)
[2023-01-13 06:05] LABS: BUN Creatinine Ratio 23.3 (6-22); Blood Urea Nitrogen 21 mg/dL (7-17); Calcium 9.7 mg/dL (8.4-10.2); Carbon Dioxide 27 mmol/L (22-32); Chloride 99 mmol/L (98-107); Estimated Glomerular Filt Rate > 60 mL/min (>60); Glucose 101 mg/dL (80-110); HEMOLYSIS < 15 (0-50); Potassium 4.3 mmol/L (3.4-5.1); Sodium 132 mmol/L (137-145)
[2023-01-13 06:35] LABS: Anisocytosis 2+; Macrocytosis 1+
[2023-01-13] MEDS: CHOLECALCIFEROL (VITAMIN D3) 1,000 UNIT TABLET 1000 UNIT PO (08:42)
[2023-01-13] MEDS: LETROZOLE 2.5 MG TABLET PO (08:42)
[2023-01-13] MEDS: ATORVASTATIN 20 MG TABLET 10 MG PO (08:42)
[2023-01-13] MEDS: ASPIRIN EC 81 MG TABLET PO (08:42)
[2023-01-13] MEDS: MORPHINE ER 15 MG TABLET PO (08:43)
[2023-01-13] MEDS: ENOXAPARIN 40 MG/0.4 ML SYRINGE SUBCUT (08:44)
--- NOTE | 2023-01-13 09:27 | P.DS_ITS ---
History of Present Illness History of Present Illness Date Patient Seen: 01/13/23 Time Patient Seen: 09:28 Chief complaint: chest px Narrative: Per admitting provider, 76-year-old female with metastatic breast cancer diagnosed in 2013. Initially diagnosed on the right side, ER positive, FL positive, HER2 negative invasive ductal carcinoma. She was found to have metastases to axillary lymph nodes bilaterally, large left multiple supraclavicular and cervical lymph nodes, and subcentimeter right hilar nodes. She received chemo shortly after diagnosis. 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 She is remote history of cervical cancer diagnosed in 1986, in remission after hysterectomy. MRI performed in 2019 showed a 1.6 cm enhancing lesion in the left margin of the S1 vertebral body, suspicious for metastasis. Tumor board recommended Radiation Oncology evaluation, but patient declined. In 2020, repeat PET scan was done she underwent 10 treatments of radiation therapy. In April of 2021, CT of the chest, abdomen, and pelvis showed no interval intrathoracic change. The left sacral lesion was increased at 1.9 cm, up from 1.5 cm. In August 2021 follow-up imaging showed unchanged lytic lesion of S1 and no new or enlarging metastases. In October of 2021, bone scan showed suspected metastatic disease in the sacrum. No other osseous metastasis were noted. During her most recent visit with Oncology in August of this year, patient complained of low back pain. At that time they felt it was likely secondary to degenerative changes and sciatica, rather than her metastatic breast cancer. He recommended 3 month follow-up with a PET scan. MRI done in August of 2022 revealed multifocal metastatic disease throughout the entire lumbar spine, including posterior elements, sacrum, and visualized iliac bones. No epidural extension was noted. She saw pain management in August of 2022 with recommendations to initiate Lyrica 25 mg 3 times daily as well as a 5% lidocaine patch. She followed up with Oncology September 30 and due to concerning findings on the MRI, PET scan was subsequently ordered for October 09. That was not accomplished. Today, she presented to the emergency department complaining of left inguinal groin pain for a couple of weeks pain in her right chest as well. Chest x-ray revealed no acute findings. Hip x-ray revealed mild bilateral hip osteoarthritis. Degenerative disc disease and arthropathy noted in the lower lumbar spine. CT of the abdomen and pelvis revealed a T9 wedge shaped compression fracture, T10 osteoblastic metastasis, L5 and sacral lytic blastic metastatic disease. Bilateral sacral fractures are partially healed felt likely to be pathologic in nature. Acute appearing fractures noted on the left. Acute appearing fracture through the left inferior pubic ramus as well. She was additionally noted to have at least 2 hypodense metastatic hepatic lesions. Labs revealed pancytopenia with a white blood cell count of 2.1 (consistent with previous), hemoglobin of 7.0 which is down from previous baseline of 8.6, hematocrit 20.8, platelets 132. Troponin was very minimally elevated at 0.046 and 0.047 on repeat. She is presently on Kisqali for her cancer, which is known to cause prolonged qt. This has been followed by oncology. Due to her pain and progressive anemia, admission was recommended. She reports that she had been doing reasonably well until 2 days prior to admission. She states her pain became fairly intense on that day and she is been unable to mobilize for the past 2 days. Prior to that, she notes her pain was reasonably well controlled with 1 hydrocodone and 3 ibuprofen twice a day and an occasional ibuprofen mid day. She notes she does live alone but has family nearby who was available to help her if needed. She did have a PET scan in November and notes that her oncologist told her her disease appeared to be quiescent. Notes today she was turning her torso and felt a pop in her right chest and has had pain since then. Discharge Providers Provider Date of admission: 01/11/23 14:39 Discharge Date: 01/13/23 Primary care physician: Anibal Chisholm MD Consults: 01/11/23 15:33 Consult to Discharge Planning Routine Comment: Consult to Occupational Therapy Evaluate & Treat Comment: Physician Instructions: Evaluate and treat Consult to Physical Therapy Evaluate & Treat Comment: Physician Instructions: Evaluate and Treat 01/12/23 12:28 Consult to Home Health Routine Comment: Reason For Exam: Home Health RN, P.T, O.T. Discharge provider: Emmanuel Taylor DO Summary Hospital Course Discharge Diagnosis: 1. Pathologic fractures involving T10, L5, and sacral lytic metastatic disease (as well as sclerosis/mild compression fracture involving T8 through T10 as well as a mid sternal body fracture identified on chest CT) 2. T9 wedge shaped compression fracture 3. Left inferior pubic ramus fracture 4. Anemia 5. Metastatic breast cancer 6. GERD Hospital Course: Patient presented with increasing pain and debility related to pathologic fractures from a combination of her her metastatic breast cancer and underlying likely osteoporosis. She is had known sacral metastatic disease which had been increasing despite prior radiation therapy. Pain was able to be relatively controlled over the course of her admission with additional of long acting morphine and as needed oxycodone in addition to this. Along with non-opiate therapies including tylenol, lidocaine patch, and ibuprofen. She elected for discharge home after therapy evaluations due to near 24 hour care available to her at home. Time Spent with Patient Time spent: Less than 30 minutes Exam Vital Signs (past 8 hours): - 01/13/23 03:06 Temperature 96.5 F L Pulse Rate 73 Respiratory Rate 19 Blood Pressure 121/70 Pulse Oximetry 94 Oxygen Flow Rate 0 Oxygen Delivery Method Room Air Oxygen Flow Rate 0 Narrative Exam Narrative: GEN: Elderly female, alert and oriented x 3, pale, NAD HEENT:NC, Face symmetric CHEST: Respiratory excursions symmetric, CTAB CV: RRR, no M/R/G ABD: Soft, NT/ND, BT present in all 4 quadrants, no organomegaly or masses appreciated EXTR: warm, well perfused, no C/C/E SKIN: warm and dry, no rash, persistent bruising noted to the forearms NEURO: Alert and oriented x 3, nonfocal Objective Labs 01/13/23 05:30 01/13/23 05:30 Labs: Laboratory Results - last 24 hr 01/13/23 05:30 WBC 2.4 L RBC 2.73 L Hgb 9.1 L Hct 27.3 L MCV 99.8 D MCH 33.4 MCHC 33.5 RDW 22.1 H Plt Count 101 L Neut % (Auto) 59.8 Lymph % (Auto) 25.3 [place] % (Auto) 4.1 Eos % (Auto) 7.5 H Baso % (Auto) 3.3 H Neut # (Auto) 1400 L Lymph # (Auto) 600 L [place] # (Auto) 100 Eos # (Auto) 200 Baso # (Auto) 100 RBC Morphology See below Anisocytosis 2+ H Macrocytosis 1+ H Sodium 132 L Potassium 4.3 Chloride 99 Carbon Dioxide 27 BUN 21 H Creatinine 0.90 Estimated GFR > 60 BUN/Creatinine Ratio 23.3 H Glucose 101 Calcium 9.7 PFSH Medical History Lumbar facet arthropathy Lumbar spondylosis Osteoarthritis, hip, bilateral Low back pain Lumbar radiculopathy Breast cancer, right (2005) Cervical cancer (1986) Palpitations HLD (hyperlipidemia) Partial tear of right rotator cuff Subacromial impingement of right shoulder Hypothyroid URI (upper respiratory infection) Surgical History History of biopsy (11/16/13) History of hysterectomy Social History household members: none Smoking Status: Never smoker alcohol intake: former Discharge Plan Discharge Plan Patient Disposition: Home Health Service Provider Discharge Comment: You were admitted to the hospital for pain control due to multiple spinal fractures. Elected for discharge home with family. Discharge orders & Medications Prescriptions: New polyethylene glycol 3350 17 gram Powder In Packet 17 g PO DAILY 30 Days Qty: 30 0RF morphine 15 mg Tablet Extended Release 15 mg PO BID 7 Days Qty: 14 0RF oxycodone 5 mg Tablet 5 mg PO Q3H PRN (Reason: Pain, Moderate (4-6)) 7 Days Qty: 30 0RF sennosides [senna] 8.6 mg Tablet 17.2 mg PO BEDTIME 15 Days Qty: 30 0RF methocarbamol 500 mg tablet 500 mg PO Q8H PRN (Reason: muscle spasm) 7 Days Qty: 21 0RF Continued fluticasone propionate [Flonase Allergy Relief] 9.9 ML spray,suspension 1 spray Intranasal QDAY Qty: 0 aspirin 81 MG tablet,delayed release (DR/EC) 81 mg PO QDAY Qty: 0 lidocaine 5 % adhesive patch,medicated 1 patch topical DAILY Qty: 30 0RF levothyroxine 50 mcg Tablet 50 mcg PO DAILY omeprazole 20 mg Capsule,Delayed Release(Dr/Ec) 20 mg PO DAILY ibuprofen [Motrin IB] 200 mg Capsule 400 mg PO BID cholecalciferol (vitamin D3) [Vitamin D3] 50 mcg (2,000 unit) Capsule 50 mcg PO DAILY letrozole 2.5 mg Tablet 2.5 mg PO DAILY Qty: 90 3RF Kisqali 600 mg PO DAILY Patient Comments: 21 days on, 7 days off Rx Instructions: Take 21 days on, 7 days off Zyrtec 1 tab PO DAILY Estroven 1 tab PO DAILY Marizol-Berino 2 tab PRN PRN (Reason: Indigestion) Patient Comments: Dissolving tablets olanzapine 5 mg tablet 5 mg PO ONCE PM rosuvastatin 5 mg tablet 5 mg PO DAILY Patient Comments: TAKE 1 TABLET BY MOUTH ONCE DAILY Changed Tylenol Arthritis 650 mg PO Q6H Qty: 60 0RF Discontinued hydrocodone-acetaminophen 5-325 mg tablet 1 tab PO BID Patient Comments: TAKE 1 TABLET BY MOUTH EVERY 4 TO 6 HOURS NEEDED FOR PAIN . DO NOT EXCEED 5 TABS PER 24 HOURS Follow up/Referrals: Anibal Chisholm MD [Primary Care Provider] - Diet/Activity/Treatments Diet: Diet as Tolerated Activity: No restrictions, as tolerated Visit Report/Discharge Packet Instructions: DI for Sternum Fracture, How to Prevent Falls Stand Alone Forms: Patient Portal/API, Stroke Signs & Symptoms Discharge Data Primary Care Provider: Anibal Chisholm
--- NOTE | 2023-01-13 09:33 | PT.IPTN ---
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 Physical Therapy Visit Comments Patient Comments Pt presents in bed and is agreeable to PT session this morning. Therapy Pain Assessment Pain When Pain Assessed During Mobility Pain Present Pain Present Pain Reported Location Left Groin Intensity 3 Pain Management Techniques Re-positioning,Timing of Activity with Medications Right Chest Intensity 7 Scale Used Numeric (0 - 10) Description Acute Pain Management Techniques Re-positioning,Timing of Activity with Medications M4 PT-IP Mobility and Gait Start: 01/12/23 13:03 Freq: NEEDED Status: Active Protocol: Document 01/13/23 10:38 AB (Rec: 01/13/23 10:49 AB [id number]) PT-Bed Mobility Assessment Supine to Sit Supine to Sit Standby Assistance,Head of Bed Elevated Scooting Scooting to Edge of Bed Standby Assistance PT-Transfer Assessment Sit to and From Stand Sit to and from Stand Standby Assistance,Use of Upper Extremities Equipment Transfer Assistive Device Gait Belt,Front Wheeled Walker Orthotic/Prosthetic Devices or Brace: No Transfers Transfer Destination Chair,Bedside Commode Transfer Technique Stand Step Pivot Transfer Ability Level of Assist Standby Assistance,Contact Guard Assistance Comments Mobility Comments The pt performed bed mobility to get to EOB with SBA and HOB elevated 60D. The pt performs this slowly due to pain. Once sitting at EOB, the pt is able to perform STS with use of UEs on FWW and showing good trunk flexion. The pt then performed stand step pivot to chair using FWW and SBA, though she slides LLE on floor rather than stepping d/t difficulty lifting LLE to step d/t pain. Once sitting in chair, the pt required a rest break to allow pain symptoms to improve, and she states she needs to use BSC to have a bowel movement. The pt then performs stand step pivot transfer with SBA/CGA this time without a walker, and is able to do so safely, though again cannot fully lift LLE due to pain. The pt states she will require an extended amount of time to have bowel movement, therefore pt was left sitting on BSC with all needs met and call light within reach. RN and DETENTION OFFICER were notified that pt is on BSC currently and will be needing assistance shortly. Gait Assessment Comments Gait Comments NT due to pain symptoms and weakness. Stair Climbing Assessment Comments Stair Climbing Comments NT due to pain symptoms and weakness. PT-Balance Assessment Sitting Balance and Reactions Static Sitting Balance Ability Normal Dynamic Sitting Balance Ability Normal Standing Balance and Reactions Static Standing Balance Ability Good Dynamic Standing Balance Ability Fair Device Used FWW M5 PT-IP Objective Assessments Start: 01/12/23 13:03 Freq: NEEDED Status: Active Protocol: Document 01/12/23 13:03 AB (Rec: 01/12/23 13:31 AB [id number]) Orientation Orientation/Cognition Level of Alertness Alert Orientation Name,Age,Birthday,Month,Date, Year,Day of Week,Place, Situation Language Function Ability No Deficits Noted Safety Awareness Understands Safety Issues Memory Description No Deficits Noted Gross Range of Motion Upper Extremity ROM Assessment Within Functional Limits Lower Extremity ROM Assessment Left Impaired Strength Upper Extremity Strength Assessment Within Functional Limits Lower Extremity Strength Assessment Left Impaired M6 PT-IP Treatment Start: 01/12/23 13:03 Freq: NEEDED Status: Active Protocol: Document 01/13/23 10:38 AB (Rec: 01/13/23 10:49 AB [id number]) Physical Therapy Treatment Education Education Provided Precautions,Weight Bearing Status,Safety Brace Education Patient Other Treatments Other Treatment Performed The pt was also educated about sleeping in a recliner if this is more comfortable for her pain symptoms, and also allows her to transfer easier than from a bed. M7 PT-IP Assessment and Plan Start: 01/12/23 13:03 Freq: NEEDED Status: Active Protocol: Document 01/13/23 10:38 AB (Rec: 01/13/23 10:49 AB [id number]) PT Summary Assessment and Plan Potential Rehabilitation Potential Fair Status of Condition at Evaluation Evolving Summary Impairments Pain,ROM,Strength,Balance,Bed Mobility,Transfers,Gait, Activity Tolerance Assessment Summary The pt was able to perform stand step pivot transfer x2 with SBA/CGA, both with and without FWW. During this therapeutic activity, the pt was educated regarding safey with transfers and how to perform each with assistance of FWW or without. The pt was also educate regarding ideas on how to set up her home environment to allow her to be as independent as possible. Also continued with education regarding TTWB on LLE for pain control, as well as hugging a pillow when coughing or sneezing to decrease chest pain. PT continues to recommend discharge to SNF vs home health with 24/7 assistance and HHPT. Goals Bed Mobility Goal Independent Transfer Goal Independent,Front Wheeled Walker Gait Goal Standby Assistance,Front Wheel Walker Gait Distance 10 Other Goals Pt to perform transfer independently with FWW while maintaining weight bearing recommendations to show improving strength to perform functional mobility. Pt to ambulate 10ft with FWW and SBA to show improving strength and tolerance to activity. Days to Meet Goals 10 Frequency of Treatment Frequency Of Treatment Once a Day Treatment Plan Physical Therapy Treatment Plan Bed Mobility Training,Transfer Training,Gait Training, Therapeutic Exercise,Balance Retraining,Discharge Planning, Hot or Cold Pack,Neuromuscular Re-ed,Coordination Retraining ,Manual Therapy Other Recommendations and Next Treatment Continue working on TTWB Focus status and use of FWW for transfers. Attempt ambulation as able. Precautions Other Precautions MD would like pt to be medicated prior to PT and recommends TTWB on LLE for pain control. Weight Bearing Status Weight Bearing Status Touch Down Weight Bearing Recommendations To Nursing Amount of Assist Needed Standby Assistance Discharge Recommendations PT Discharge Recommendations Home with 24/7 Assist Available,Home Health,Home vs SNF Equipment Needed for Home Before FWW Discharge Transportation Needs at Discharge Private Vehicle,Wheelchair/ Cabulance
--- NOTE | 2023-01-13 12:22 | CM.DPC ---
DCP Discharge home with HH Per MD, pt is medically stable to d/c home today and no identified barriers to SNF. Per PT, worked with pt this morning and recommending home with assist and HH. Per RN, mosley cath discontinued and awaiting for pt to void independently but did have bm on BSC this AM. SW met bedside with pt and explained role and she confirms she is agreeable with d/c to home via Dtr POV and has [facility] brochure already. Pt states she is hopeful to get home before lunchtime and Dtr just waiting for the call to provide transport once discharge pwk completed. SW provided a copy of the [facility] list for hospital bed rentals with tentative monthly rent cost and encouraged pt or family to call [facility] as they have many different types of beds and costs. Pt states she has used [facility] in the past and appreciative of the printed handout. ERIC Cordoba kindly faxed F2F, HH orders, and d/c summ to [facility] to review. ROB updated RN. Plan: Patient to d/c home via Dtr POV today once she has voided independently with [facility] to follow and family to assist. Latonya Molina, [employer]
[2023-01-13] MEDS: OXYCODONE IR 5 MG TABLET PO (12:40)
[2023-01-13 13:00] VITALS: BP 107/69; PULSE 87; RESP 16; TEMP 36.3; O2SAT 97
--- NOTE | 2023-01-13 13:10 | PC.NURSE ---
Day shift: Discharge paperwork gone over with patient and patient's daughter. All questions answered, they both stated understanding. PIV and [place] catheter removed prior to discharge. Spoke with MD Taylor who approved the [place] d/c. Patient voided 150mL in BSC after [place] removal. Bladder scanned, less than 50mL residual. All belongings with patient. Patient escorted to exit via wheelchair where daughter plans to drive her home.
== END 2023-01-13 13:50 | disposition home health service (06) | DRG 543 ==
LOC: ED 14:21 → AC 15:09
PROVIDERS: Internal Medicine; Admitting Provider Family Medicine; Emergency Provider Emergency Medicine; PCP Family Medicine; Referring Provider Emergency Medicine; Visit Provider Family Medicine
DX: M84.58XA Pathological fracture in neoplastic disease, other specified site, initial encounter for fracture (principal); C78.7 Secondary malignant neoplasm of liver and intrahepatic bile duct; M80.0B2A Age-related osteoporosis with current pathological fracture, left pelvis, initial encounter for fracture; C79.51 Secondary malignant neoplasm of bone; D63.8 Anemia in other chronic diseases classified elsewhere; M84.550A Pathological fracture in neoplastic disease, pelvis, initial encounter for fracture; M80.08XA Age-related osteoporosis with current pathological fracture, vertebra(e), initial encounter for fracture; K21.9 Gastro-esophageal reflux disease without esophagitis; C50.911 Malignant neoplasm of unspecified site of right female breast; E03.9 Hypothyroidism, unspecified; E78.5 Hyperlipidemia, unspecified; Z17.0 Estrogen receptor positive status [ER+]
CPT/HCPCS: 36415; 36430; 71045; 71250; 73502; 74177; 80048; 80053; 81003; 82550; 83690; 84484; 85014; 85018; 85025; 86850; 86900; 86901; 93005; 93010; 96374; 96375; 97110; 97162; 97535; 99284; 99285; P9016; A9270; J1650; J1885; J2270; Q9967

== ENCOUNTER 2023-04-07 13:38 | Inpatient (IN) | payer OTHER, SELFPAY ==
[2023-01-11 15:32] VITALS: BMI 24.1
[2023-04-07] VITALS (25 sets, daily range): BP systolic 101–172; BP diastolic 60–89; PULSE 65–114; RESP 18–35; TEMP 36.3–38.4; O2SAT 93–98; BMI 21.2; BMI 19.6
--- NOTE | 2023-04-07 14:08 | DI.RAD.S_ITS ---
PROCEDURE: XR CHEST 1V INDICATIONS: chest pain TECHNIQUE: One view of the chest was acquired. COMPARISON: [facility], [facility], XR CHEST 1V, 01/11/2023, 11:35. FINDINGS: Surgical changes and devices: Left chest wall port catheter, tip of which is in the lower SVC. Lungs and pleura: Lungs are clear. No pleural effusions or pneumothorax. Mediastinum: Mediastinal contours appear normal. Heart size is normal. Bones and chest wall: No suspicious bony lesions. Overlying soft tissues appear unremarkable. IMPRESSION: No acute cardiopulmonary abnormality is seen. Dictated by: Javier Leo M.D. on 04/07/2023 at 14:55 Approved by: Javier Leo M.D. on 04/07/2023 at 14:56
[2023-04-07 15:21] LABS: Add Manual Diff / Slide Review NO; Basophils Absolute Auto 0 /uL (0-100); Basophils Percent Auto 1.4 % (0-2); Eosinophils Absolute Auto 0 /uL (0-450); Eosinophils Percent Auto 1.8 % (2-4); Lymphocytes Absolute Auto 400 /uL (1100-4500); Lymphocytes Percent Auto 16.1 % (25-40); Mean Corpuscular HGB Conc 34.7 % (30-36); Mean Corpuscular Hemoglobin 32.8 PG (26-34); Mean Corpuscular Volume 94.4 fL (80-100); Monocytes Absolute Auto 100 /uL (0-900); Monocytes Percent Auto 2.8 % (3-14); Neutrophils Absolute Auto 1900 /uL (1500-7000); Neutrophils Percent Auto 77.9 % (50-75); Platelet Count 132 X10^3/uL (150-400); Red Blood Cell Count 1.84 X10^6/uL (4.0-5.2); Red Cell Distribution Width 19.3 % (11.6-14.8); White Blood Cell Count 2.4 X10^3/uL (4.5-11.0)
[2023-04-07 15:24] LABS: Hematocrit 17.4 % (36-46)
[2023-04-07 15:25] LABS: INR 1.4 (0.9-1.3); Prothrombin Time 15.6 SECONDS (9.4-12.5)
--- NOTE | 2023-04-07 15:26 | ED_ITS ---
HPI - Weakness General Chief complaint: Weakness Stated complaint: weakness Time Seen by Provider: 04/07/23 15:25 Source: patient and EMS Mode of arrival: EMS Limitations: no limitations History of Present Illness HPI Narrative: This is a 77 year old female history of DCIS of the left breast on [place] and gets frequent EKGs, hypothyroidism, dyslipidemia who presents with complaint of weakness patient states she is just felt generally weak it has been increasing over the last couple days but has had some general mucus overall. She denies headaches, no fevers or chills, no cold cough or congestion symptoms. She denies any lateralizing weakness. No other acute neurologic changes. Denies any syncope but has felt lightheaded. Denies any chest pain or shortness of breath. States no nausea or vomiting. States has had no bowel movement since . Had a very large black well formed stool at that time. States it was 11 days prior before she had bowel movement before that. She states she is passing gas regularly. She denies any dysuria, urgency or frequency. Denies any swelling of her extremities. Patient states she has had blood transfusions, she did have 1 in January of 2023. Patient lives at home, has home health care once weekly, does have family who was sister but they all have been staying away as they currently have a upper respiratory infection. States her primary care is Dr. Chisholm. States allergic to bananas, iodine and shellfish. Has had prior blood transfusion. States surgeries include a port, shoulder surgery in 2020, has had a breast biopsy and radiation in 2005 for regular breast cancer and then developed DCIS did not have radiation for this but is currently on oral chemotherapy. Related Data Home Medications Medication Instructions Recorded Confirmed fluticasone propionate 50 1 spray intranasal QDAY ##0 08/01/16 01/11/23 mcg/actuation nasal spray,suspension (Flonase Allergy Relief) aspirin 81 mg tablet,delayed 81 mg PO QDAY ##0 02/13/17 01/11/23 release levothyroxine 50 mcg tablet 50 mcg PO DAILY 05/07/18 01/11/23 omeprazole 20 mg capsule,delayed 20 mg PO DAILY 05/07/18 01/11/23 release ibuprofen 200 mg capsule (Motrin 400 mg PO BID 06/04/18 01/11/23 IB) cholecalciferol (vitamin D3) 50 50 mcg PO DAILY 08/02/21 01/11/23 mcg (2,000 unit) capsule (Vitamin D3) rosuvastatin 5 mg tablet 5 mg PO DAILY 08/27/22 01/11/23 Marizol-[place] 2 tab PRN PRN Indigestion 01/11/23 01/12/23 [place]ro[place] 1 tab PO DAILY 01/11/23 01/11/23 Kisqali 600 mg PO DAILY Cancer 01/11/23 01/11/23 Zyrtec 1 tab PO DAILY 01/11/23 01/12/23 olanzapine 5 mg tablet 5 mg PO ONCE PM 01/12/23 01/12/23 Previous Rx's Medication Instructions Recorded letrozole 2.5 mg tablet 2.5 mg PO DAILY breast cancer #90 09/02/22 tabs lidocaine 5 % topical patch 1 patch topical DAILY #30 patches 11/18/22 Tylenol Arthritis 650 mg PO Q6H Arthritis pain #60 01/13/23 tabs Allergies Allergy/AdvReac Type Severity Reaction Status Date / Time latex Allergy Intermediate Hives Verified 09/10/22 15:14 banana Allergy Unknown SCRATCHY Verified 09/10/22 15:14 THROAT shellfish derived Allergy Unknown ITCH/RASH, Verified 09/10/22 15:14 SCRATCHY THROAT Review of Systems Review of Systems ROS Unobtainable: All systems reviewed & are unremarkable except as noted in HPI and below Patient History Medical History Lumbar facet arthropathy Lumbar spondylosis Osteoarthritis, hip, bilateral Low back pain Lumbar radiculopathy Breast cancer, right (2005) Cervical cancer (1986) Palpitations HLD (hyperlipidemia) Partial tear of right rotator cuff Subacromial impingement of right shoulder Hypothyroid URI (upper respiratory infection) Surgical History History of biopsy (11/16/13) History of hysterectomy Social History household members: none Smoking Status: Never smoker alcohol intake: former Smoking Status: Never smoker alcohol intake frequency: holidays/special occasions only Substance Use Type: does not use Exam Narrative Exam Narrative: GENERAL: Alert and oriented x three, thin pale female mild distress. HEENT: Head normocephalic, atraumatic, EOMI, pupils reactive, face symmetric, pale conjunctiva, moist mucous membranes NECK: Supple, full range of motion CARDIOVASCULAR: Regular rate and rhythm without murmurs, rubs or gallops. Mild JVD bilaterally. No edema bilateral lower extremities. RESPIRATORY: Breath sounds equal bilaterally, no wheezes rales or rhonchi. ABDOMEN: Soft, nontender. Normoactive bowel sounds all 4 quadrants. No guarding or rebound, rigidity, no mass : No CVA tenderness EXTREMITIES: Normal range of motion, no clubbing or edema. Neurovascularly intact NEUROLOGICAL: Cranial nerves II through XII grossly intact. Moving all extremities SKIN: Warm, dry, no petechiae, no rashes or lesions. Initial Vital Signs Initial Vital Signs: Vital Signs Temperature 97.9 F 04/07/23 13:52 Pulse Rate 65 04/07/23 13:52 Respiratory Rate 20 04/07/23 13:52 Blood Pressure 101/64 04/07/23 13:52 Pulse Oximetry 97 04/07/23 13:52 Oxygen Delivery Method Room Air 04/07/23 13:52 Course Orders Ordered: ED Orders 04/07/23 14:08 XR chest 1V Stat EKG-12 Lead Stat 04/07/23 14:55 Consult to [employer] REPAIRER - [employer] Vmware Administrator Stat BNP [NT-proBNP (BNP-Adult 18+)] Stat Complete Blood Count AUTO DIFF Stat Comprehensive Metabolic Panel Stat Lipase Stat Magnesium Stat PTT Partial Thromboplastin Yosef Stat Prothrombin Time INR Stat Troponin & CK Cardiac Panel Stat 04/07/23 15:48 PRBC [Packed Cells] Stat Type and Screen Stat 04/07/23 16:11 Urine Microscopic Stat 04/07/23 17:00 Trop I [Troponin I] Stat EKG-12 Lead Stat 04/07/23 18:00 Covid-19 + FLU A/B + RSV - PCR Stat Discontinued Medications Acetaminophen (Acetaminophen 325 Mg Tablet) 650 mg PO NOW ONE Stop: 04/07/23 18:22 Last Admin: 04/07/23 18:33 Dose: 650 mg Furosemide (Furosemide 40 Mg/4 Ml Vial) 40 mg IV NOW ONE Stop: 04/07/23 19:01 Last Admin: 04/07/23 19:00 Dose: Not Given Pantoprazole Sodium (Pantoprazole 40 Mg Vial) 40 mg IV NOW ONE Stop: 04/07/23 18:40 Vital Signs Vital signs: Vital Signs - 8 hr 04/07/23 13:52 04/07/23 13:52 04/07/23 14:00 Temperature 97.9 F Pulse Rate 65 87 87 Respiratory Rate 20 21 19 Blood Pressure 101/64 Pulse Oximetry 97 96 94 Oxygen Delivery Method Room Air 04/07/23 14:02 04/07/23 14:02 04/07/23 14:30 Temperature Pulse Rate 88 94 H Respiratory Rate 19 35 H Blood Pressure 120/78 Pulse Oximetry 95 95 Oxygen Delivery Method Room Air 04/07/23 14:30 04/07/23 15:00 04/07/23 15:00 Temperature Pulse Rate 86 Respiratory Rate 24 Blood Pressure 116/67 135/63 Pulse Oximetry 98 Oxygen Delivery Method 04/07/23 15:30 04/07/23 15:30 04/07/23 16:00 Temperature Pulse Rate 83 86 Respiratory Rate 21 Blood Pressure 127/65 Pulse Oximetry 94 95 Oxygen Delivery Method Room Air 04/07/23 16:01 04/07/23 16:05 04/07/23 16:30 Temperature Pulse Rate 114 H Respiratory Rate 30 H Blood Pressure 172/67 H 121/72 Pulse Oximetry 95 Oxygen Delivery Method 04/07/23 16:30 04/07/23 17:00 04/07/23 17:00 Temperature Pulse Rate 86 94 H Respiratory Rate 23 23 Blood Pressure 109/78 Pulse Oximetry 94 95 Oxygen Delivery Method 04/07/23 17:01 04/07/23 17:01 04/07/23 17:02 Temperature 98.5 F Pulse Rate 97 H 97 H Respiratory Rate 20 Blood Pressure 153/77 H 153/77 H Pulse Oximetry 94 Oxygen Delivery Method Room Air 04/07/23 17:23 04/07/23 17:30 04/07/23 17:30 Temperature 99.5 F Pulse Rate 91 H 91 H Respiratory Rate 22 21 Blood Pressure 134/63 134/63 Pulse Oximetry 97 Oxygen Delivery Method Room Air 04/07/23 18:00 04/07/23 18:00 Temperature Pulse Rate 85 Respiratory Rate 22 Blood Pressure 135/66 Pulse Oximetry 97 Oxygen Delivery Method MDM - Weakness Lab Data 04/07/23 14:55 04/07/23 14:55 Labs: Lab Results 02/05/24 02/05/24 02/05/24 Range/Units 14:55 15:48 16:11 WBC 2.4 L (4.5-11.0) X10^3/uL RBC 1.84 L (4.0-5.2) X10^6/uL Hgb 6.0 L* (12.0-16.0) g/dL Hct 17.4 L* (36-46) % MCV 94.4 (80-100) fL MCH 32.8 (26-34) PG MCHC 34.7 (30-36) % RDW 19.3 H (11.6-14.8) % Plt Count 132 L (150-400) X10^3/uL Neut % (Auto) 77.9 H (50-75) % Lymph % (Auto) 16.1 L (25-40) % [place] % (Auto) 2.8 L (3-14) % Eos % (Auto) 1.8 L (2-4) % Baso % (Auto) 1.4 (0-2) % Neut # (Auto) 1900 (1470-8964) /uL Lymph # (Auto) 400 L (1283-7039) /uL [place] # (Auto) 100 (0-900) /uL Eos # (Auto) 0 (0-450) /uL Baso # (Auto) 0 (0-100) /uL PT 15.6 H (9.4-12.5) SECONDS INR 1.4 H (0.9-1.3) APTT 30 (25.1-36.5) SECONDS Sodium 133 L (137-145) mmol/L Potassium 3.7 (3.4-5.1) mmol/L Chloride 100 (98-107) mmol/L Carbon Dioxide 28 (22-32) mmol/L BUN 23 H (7-17) mg/dL Creatinine 0.99 (0.52-1.04) mg/dL Estimated GFR 59 L (>60) mL/min BUN/Creatinine Ratio 23.2 H (6-22) Glucose 141 H (80-110) mg/dL Calcium 9.8 (8.4-10.2) mg/dL Magnesium 2.1 (1.6-2.3) mg/dL Total Bilirubin 1.5 H (0.2-1.3) mg/dL AST 70 H (14-36) IU/L ALT 16 (<35) IU/L Alkaline Phosphatase 164 H (38-126) U/L Total Creatine Kinase 50 (30-135) U/L Troponin I 0.088 H (0.01-0.034) ng/mL NT-Pro-B Natriuret Pep 614 H (<450) pg/mL Total Protein 6.7 (6.3-8.2) g/dL Albumin 3.4 L (3.5-5.0) g/dL Globulin 3.3 (1.7-4.1) g/dL Albumin/Globulin Ratio 1.0 (1.0-2.8) Lipase 91 (23-300) U/L Urine RBC 10-30/hpf H (0-5/HPF) Urine WBC 1-5/hpf (0-5/HPF) Ur Squamous Epith Cells 1-5 /hpf (0-5/HPF) Urine Bacteria None seen (None) Ur Culture Indicated? Cult not indicated Vol Urine Centrifuged 10ml (spun) SARS-CoV-2 (PCR) (Negative) Influenza A (RT-PCR) (NEGATIVE) Influenza B (RT-PCR) (NEGATIVE) RSV (PCR) (Negative) Blood Type B Negative Antibody Screen Negative Crossmatch See Detail Transfusion React Rpt Cancelled Donor Unit # Cancelled Lab Clerical Err Check Cancelled Blood Bag Check Cancelled Pre-Trans Blood Type Cancelled Pre-Trans Vis Hemolysis Cancelled Pre-Trans Antibody Scrn Cancelled Post-Trans Blood Type Cancelled Post-Tx Visible Hemolys Cancelled Post-Trans Antibody Scrn Cancelled Reaction Path Interpret Cancelled 04/07/23 04/07/23 Range/Units 17:00 18:00 WBC (4.5-11.0) X10^3/uL RBC (4.0-5.2) X10^6/uL Hgb (12.0-16.0) g/dL Hct (36-46) % MCV (80-100) fL MCH (26-34) PG MCHC (30-36) % RDW (11.6-14.8) % Plt Count (150-400) X10^3/uL Neut % (Auto) (50-75) % Lymph % (Auto) (25-40) % [place] % (Auto) (3-14) % Eos % (Auto) (2-4) % Baso % (Auto) (0-2) % Neut # (Auto) (2422-6655) /uL Lymph # (Auto) (3790-4885) /uL [place] # (Auto) (0-900) /uL Eos # (Auto) (0-450) /uL Baso # (Auto) (0-100) /uL PT (9.4-12.5) SECONDS INR (0.9-1.3) APTT (25.1-36.5) SECONDS Sodium (137-145) mmol/L Potassium (3.4-5.1) mmol/L Chloride (98-107) mmol/L Carbon Dioxide (22-32) mmol/L BUN (7-17) mg/dL Creatinine (0.52-1.04) mg/dL Estimated GFR (>60) mL/min BUN/Creatinine Ratio (6-22) Glucose (80-110) mg/dL Calcium (8.4-10.2) mg/dL Magnesium (1.6-2.3) mg/dL Total Bilirubin (0.2-1.3) mg/dL AST (14-36) IU/L ALT (<35) IU/L Alkaline Phosphatase (38-126) U/L Total Creatine Kinase (30-135) U/L Troponin I 0.090 H (0.01-0.034) ng/mL NT-Pro-B Natriuret Pep (<450) pg/mL Total Protein (6.3-8.2) g/dL Albumin (3.5-5.0) g/dL Globulin (1.7-4.1) g/dL Albumin/Globulin Ratio (1.0-2.8) Lipase (23-300) U/L Urine RBC (0-5/HPF) Urine WBC (0-5/HPF) Ur Squamous Epith Cells (0-5/HPF) Urine Bacteria (None) Ur Culture Indicated? Vol Urine Centrifuged SARS-CoV-2 (PCR) Negative (Negative) Influenza A (RT-PCR) Flu a negative (NEGATIVE) Influenza B (RT-PCR) Flu b negative (NEGATIVE) RSV (PCR) Negative (Negative) Blood Type Antibody Screen Crossmatch Transfusion React Rpt Donor Unit # Lab Clerical Err Check Blood Bag Check Pre-Trans Blood Type Pre-Trans Vis Hemolysis Pre-Trans Antibody Scrn Post-Trans Blood Type Post-Tx Visible Hemolys Post-Trans Antibody Scrn Reaction Path Interpret Urine Dip Bedside Urine Glucose Negative Bedside Urine Bilirubin + 1 Bedside Urine Ketone - Negative Urine Specific [place] 1.030 Bedside Urine Occult Blood - Negative Bedside Urine pH 6.0 Bedside Urine Protein + 30 Bedside Urine Urobilinogen - Negative Bedside Urine Nitrite - Negative Bedside Urine Leukocytes - Negative Esterase Imaging Data Chest x-ray: Radiologist Impression: Close Chest X-Ray (Signed) Javier Leo - 04/07/23 Abdomen/Pelvis CT (Signed) Suggs,Surendra - 01/11/23 Hip X-Ray (Signed) Suggs,Surendra - 01/11/23 Chest X-Ray (Signed) Suggs,Surendra - 01/11/[address] (Signed) Roverto Shah - 01/11/23 Lumbar Spine MRI (Signed) Saul Ordoñez - 09/08/22 Lumbar Spine X-Ray (Signed) Kathy Silva - 07/09/22 Hip X-Ray (Signed) Kathy Silva - 07/09/22 Chest/Abdomen/Pelvis CT (Signed) Gaurav Haque - 05/24/22 Bone Scan Nuclear Medicine (Signed) Armnad Gudino - 05/24/22 Cervical Spine X-Ray (Signed) Kathy Silva - 12/11/21 Bone Scan Nuclear Medicine (Signed) Armand Gudino - 10/04/21 Mammogram Diagnostic (Signed) Sohail Warner - 10/01/21 Breast Ultrasound (Signed) Sohail Warner - 10/01/21 Chest/Abdomen/Pelvis CT (Signed) Gerardo Saravia - 09/27/21 Chest/Abdomen/Pelvis CT (Signed) Rasta Thomas - 04/27/21 Bone Scan Nuclear Medicine (Signed) Alva Gudino - 04/27/21 Telemetry Strips 11/16/20 Chest X-Ray (Signed) Maurilio Haines - 11/16/20 PET, Tumor Imaging Skull-Mid Thigh (Signed) Alva Gudino - 10/04/20 Shoulder MRI (Signed) Javier Leo - 07/24/20 Bone Scan Nuclear Medicine (Signed) Alva Gudino - 05/10/20 Chest X-Ray (Signed) Ernesto Arnold - 02/03/20 PET, Tumor Imaging Skull-Mid Thigh (Signed) TereseJared burgoskenzie - 01/26/20 Lumbar Spine MRI (Signed) Aye Guzmán - 12/27/19 Bone Scan Nuclear Medicine (Signed) Alva Gudino - 12/01/19 Echocardiogram Ultrasound (Signed) Max See - 08/06/19 Chest/Abdomen/Pelvis CT (Signed) ValerioVernon - 06/15/19 Bone Scan Nuclear Medicine (Signed) Alva Gudino - 06/15/19 Chest CTA (Signed) Aye Guzmán - 02/11/19 Bone Densitometry 10/29/18 DEXA Result 10/29/18 Chest/Abdomen/Pelvis CT (Signed) Gricelda Patterson - 06/25/18 Bone Scan Nuclear Medicine (Signed) Alva Gudino - 06/25/[address] (Signed) Kathy Silva - 10/02/17 Chest/Abdomen/Pelvis CT (Signed) Jose Juan Hand - 10/02/17 Bone Scan Nuclear Medicine (Signed) Aye Guzmán - 10/02/17 Launch?[place] [address] XRay Report Signed Patient: Shonda Hankins MR#: [id number] : 1945 Acct:[id number] Age/Sex: 77 / F Date of Service: 04/07/23 Loc: ED Accession Number: [id number] Procedure: XR chest 1V Ordering Provider: Beth Vallejo D.O. PROCEDURE: XR CHEST 1V INDICATIONS: chest pain TECHNIQUE: One view of the chest was acquired. COMPARISON: [facility], , XR CHEST 1V, 01/11/2023, 11:35. FINDINGS: Surgical changes and devices: Left chest wall port catheter, tip of which is in the lower SVC. Lungs and pleura: Lungs are clear. No pleural effusions or pneumothorax. Mediastinum: Mediastinal contours appear normal. Heart size is normal. Bones and chest wall: No suspicious bony lesions. Overlying soft tissues appear unremarkable. IMPRESSION: No acute cardiopulmonary abnormality is seen. Dictated by: Javier Leo M.D. on 04/07/2023 at 14:55 Approved by: Javier Leo M.D. on 04/07/2023 at 14:56 ECG Data Attestation: I personally reviewed and interpreted this ECG as follows: Prior ECG tracings: available for review Interpretation: Sinus rhythm rate of 90 NE 138 QRS of [address] elevation depression noted. 01/11/2023. Sinus rhythm rate of 93 NE 142 QRS 88 QTC of 462. No acute ST changes appreciated. MDM Narrative Medical decision making narrative: 77-year-old female with complaint of weakness. Patient denies any lateralizing weakness. Patient has hemoglobin of 6, was transfused in January not had obvious black tarry stools but did have one. Patient denies chest pain or shortness of breath. Platelets are low as well as white count. Unclear if this is hematologic problem versus GI bleed or other. INR is 1.4, sodium is appropriate creatinine is appropriate electrolytes are overall normal. Bilirubin is 1.5 with AST of 70, ALT of 16, alk-phos of 164 indeterminate troponin 0.088 and on repeat is 0.090 with a BNP of 614. Patient was seen with Dr. Taylor who accepts for observation. Patient agreed to transfusion. Developed a temperature while transfusing had also developed a headache was given Tylenol. Transfusion was stopped. Discharge Plan Departure Patient Disposition: Admitted as Observation Clinical Impression: Symptomatic anemia Admit Date/Time: 04/07/23 18:24 Admit Provider: Emmanuel Taylor
[2023-04-07 15:27] LABS: PTT Partial Thromboplastin Tim 30 SECONDS (25.1-36.5)
--- NOTE | 2023-04-07 15:31 | PC.NURSE ---
Pt reports having increased weakness while taking chemo medications. She was on her chemo meds and was so weak that my doctor paused the medication for a month. Pt started taking her chemo medications again 3 weeks ago and has been having worsening weakness since. She reports that her appetite is decreased, due to having back pain whenever she eats. Pt denies nausea currently, requesting ice chips. Provider Okay'ed.
[2023-04-07 15:35] LABS: Alanine Aminotransferase 16 IU/L (<35); Albumin 3.4 g/dL (3.5-5.0); Alkaline Phosphatase 164 U/L (38-126); Aspartate Aminotransferase 70 IU/L (14-36); BUN Creatinine Ratio 23.2 (6-22); Bilirubin Total 1.5 mg/dL (0.2-1.3); Blood Urea Nitrogen 23 mg/dL (7-17); Calcium 9.8 mg/dL (8.4-10.2); Carbon Dioxide 28 mmol/L (22-32); Chloride 100 mmol/L (98-107); Creatine Kinase 50 U/L (30-135); Estimated Glomerular Filt Rate 59 mL/min (>60); Globulin 3.3 g/dL (1.7-4.1); Glucose 141 mg/dL (80-110); HEMOLYSIS < 15 (0-50); Lipase 91 U/L (23-300); Magnesium 2.1 mg/dL (1.6-2.3); Potassium 3.7 mmol/L (3.4-5.1); Sodium 133 mmol/L (137-145); Total Protein 6.7 g/dL (6.3-8.2)
--- NOTE | 2023-04-07 15:39 | PC.NURSE ---
Signature RN Jennifer - [phone] Signature composition worker Jazmine [phone] Received phone call from above. They state that pt has no help at home because they are all sick and family has refused additional home health help. They suggest hospice consult. Pt to be admitted for low h/h and weakness.
[2023-04-07 15:43] LABS: Troponin I 0.088 ng/mL (0.01-0.034)
[2023-04-07 16:26] LABS: NT-proBNP (BNP-Adult 18+) 614 pg/mL (<450)
[2023-04-07 16:43] LABS: Bacteria Urine None Seen; Culture Indicated Urine Cult Not Indicated; RBC Urine 10-30/HPF (0-5/HPF); Squamous Epithelial Cell Urine 1-5 /HPF (0-5/HPF); Urine Volume 10mL (spun); WBC Urine 1-5/HPF (0-5/HPF)
--- NOTE | 2023-04-07 17:36 | PC.NURSE ---
Pt temperature increased after 15minute vitals regarding blood administration (see TAR). Pt denies worsening back pain, SOB, or pain at infusion cite. Provider notified and rate decreased per provider (see TAR).
--- NOTE | 2023-04-07 18:25 | PC.NURSE ---
Addendum entered by Marv Yoder R.N. 04/07/23 19:07: Regarding TAR and blood transfusion stopped: Blood intake total 105cc @ 1825 due to transfusion reaction. Patient states headache is diminished after stopping blood, she is alert and oriented and expressed understanding to why we stopped blood administration. Original Note: Pt developed a fever and headache while receiving blood products. Dr. Vallejo notified and new order to stop blood transfusion. Blood bank was called and requests a lavender top, urine sample, and blood product/tubing. Coordinator notified per Johanna CHANDLER, and coordinator is to notify the hospitalist of stopping transfusion.
[2023-04-07] MEDS: ACETAMINOPHEN 325 MG TABLET 650 MG PO (18:33)
--- NOTE | 2023-04-07 18:37 | PM.HP.1 ---
History of Present Illness History of Present Illness Date Patient Seen: 04/07/23 Time Patient Seen: 18:10 Chief complaint: weakness Narrative: 76-year-old female with metastatic breast cancer diagnosed in 2013, on kisqali for metastatic disease, hypothyroidism , HLD, GERD who presents with weakness. Large dark stool approx 4 days ago, none since. Denies abdominal pain, chest pain palpitations. She reports feeling weak the last 1-2 month, with progressively worsening shortness of breath. She was being visited by her home addiction social worker today thought that she did not look good and called an ambulance who brought her to the emergency room. She denies any fevers, chills, abdominal pain, nausea, vomiting, rash. . In the emergency room, the patient's vital signs were unremarkable, though she did have a temperature of a 101.1 point after I saw her. Urinalysis was unremarkable as was a chest x-ray. Respiratory panel is pending. Labs were notable for an indeterminate troponin, mildly elevated bilirubin, and a hemoglobin of 6. She was ordered for transfusion from the emergency room, and was admitted for symptomatic anemia. [facility] Medical History Lumbar facet arthropathy Lumbar spondylosis Osteoarthritis, hip, bilateral Low back pain Lumbar radiculopathy Breast cancer, right (2005) Cervical cancer (1986) Palpitations HLD (hyperlipidemia) Partial tear of right rotator cuff Subacromial impingement of right shoulder Hypothyroid URI (upper respiratory infection) Surgical History History of biopsy (11/16/13) History of hysterectomy Social History household members: none Smoking Status: Never smoker alcohol intake: former Meds Home Medications and Allergies Home Medications Medication Instructions Recorded Confirmed Type aspirin 81 mg tablet,delayed 81 mg PO QDAY ##0 02/13/17 04/07/23 History release levothyroxine 50 mcg tablet 50 mcg PO DAILY 05/07/18 04/07/23 History omeprazole 20 mg capsule,delayed 20 mg PO BID 05/07/18 04/07/23 History release ibuprofen 200 mg capsule (Motrin 400 mg PO BID 06/04/18 04/07/23 History IB) cholecalciferol (vitamin D3) 50 50 mcg PO DAILY 08/02/21 04/07/23 History mcg (2,000 unit) capsule (Vitamin D3) rosuvastatin 5 mg tablet 5 mg PO BEDTIME 08/27/22 04/07/23 History letrozole 2.5 mg tablet 2.5 mg PO DAILY breast cancer #90 09/02/22 04/07/23 Rx tabs lidocaine 5 % topical patch 1 patch topical DAILY #30 patches 11/18/22 04/07/23 Rx Marizol-Hampton 2 tab PRN PRN Indigestion 01/11/23 01/12/23 History Estroven 155 mg PO DAILY 01/11/23 04/07/23 History Kisqali 400 mg PO DAILY Cancer 01/11/23 04/07/23 History Zyrtec 1 tab PO DAILY 01/11/23 04/07/23 History olanzapine 5 mg tablet 5 mg PO ONCE PM 01/12/23 04/07/23 History docusate sodium 250 mg capsule 250 mg PO BID PRN Constipation 04/07/23 04/07/23 History ferrous sulfate 325 mg (65 mg 325 mg PO DAILY 04/07/23 04/07/23 History iron) tablet hydrocodone 5 mg-acetaminophen 325 1 tab PO Q4-6H PRN Pain (Scale 04/07/23 04/07/23 History mg tablet Score 4-6) methocarbamol 500 mg tablet 500 mg PO Q8H PRN muscle spasm 04/07/23 04/07/23 History morphine 15 mg tablet,extended 15 mg PO BID PRN severe pain 04/07/23 04/07/23 History release oxycodone 5 mg tablet 5 mg PO Q3H PRN breakthrough pain 04/07/23 04/07/23 History polyethylene glycol 3350 17 gram 17 g PO BID 04/07/23 04/07/23 History oral powder packet (Miralax) prochlorperazine maleate 10 mg 10 mg PO Q6H PRN Nausea And 04/07/23 04/07/23 History tablet Vomiting sennosides 8.6 mg tablet (Senna 8.6 mg PO BID PRN Constipation 04/07/23 04/07/23 History Lax) simethicone 125 mg chewable tablet 125 mg PO QID PRN gas 04/07/23 04/07/23 History (Gas Relief (simethicone)) Allergies Allergy/AdvReac Type Severity Reaction Status Date / Time latex Allergy Intermediate Hives Verified 09/10/22 15:14 banana Allergy Unknown SCRATCHY Verified 09/10/22 15:14 THROAT shellfish derived Allergy Unknown ITCH/RASH, Verified 09/10/22 15:14 SCRATCHY THROAT Review of Systems Review of Systems Narrative: All other systems reviewed with the patient and are negative unless otherwise stated. Exam Vital Signs (past 8 hours): - 04/07/23 13:52 04/07/23 13:52 04/07/23 14:00 Temperature 97.9 F Pulse Rate 65 87 87 Respiratory Rate 20 21 19 Blood Pressure 101/64 Pulse Oximetry 97 96 94 Oxygen Delivery Method Room Air 04/07/23 14:02 04/07/23 14:02 04/07/23 14:30 Temperature Pulse Rate 88 94 H Respiratory Rate 19 35 H Blood Pressure 120/78 Pulse Oximetry 95 95 Oxygen Delivery Method Room Air 04/07/23 14:30 04/07/23 15:00 04/07/23 15:00 Temperature Pulse Rate 86 Respiratory Rate 24 Blood Pressure 116/67 135/63 Pulse Oximetry 98 Oxygen Delivery Method 04/07/23 15:30 04/07/23 15:30 04/07/23 16:00 Temperature Pulse Rate 83 86 Respiratory Rate 21 Blood Pressure 127/65 Pulse Oximetry 94 95 Oxygen Delivery Method Room Air 04/07/23 16:01 04/07/23 16:05 04/07/23 16:30 Temperature Pulse Rate 114 H Respiratory Rate 30 H Blood Pressure 172/67 H 121/72 Pulse Oximetry 95 Oxygen Delivery Method 04/07/23 16:30 04/07/23 17:00 04/07/23 17:00 Temperature Pulse Rate 86 94 H Respiratory Rate 23 23 Blood Pressure 109/78 Pulse Oximetry 94 95 Oxygen Delivery Method 04/07/23 17:01 04/07/23 17:01 04/07/23 17:02 Temperature 98.5 F Pulse Rate 97 H 97 H Respiratory Rate 20 Blood Pressure 153/77 H 153/77 H Pulse Oximetry 94 Oxygen Delivery Method Room Air 04/07/23 17:23 04/07/23 17:30 04/07/23 17:30 Temperature 99.5 F Pulse Rate 91 H 91 H Respiratory Rate 22 21 Blood Pressure 134/63 134/63 Pulse Oximetry 97 Oxygen Delivery Method Room Air 04/07/23 18:33 Temperature 101.1 F H Pulse Rate Respiratory Rate Blood Pressure Pulse Oximetry Oxygen Delivery Method Oxygen Delivery Method Room Air Narrative Exam Narrative: GEN: Elderly female, alert and oriented x 3, pale, NAD HEENT:NC, Face symmetric CHEST: Respiratory excursions symmetric, CTAB CV: RRR, no M/R/G ABD: Soft, NT/ND, BT present in all 4 quadrants, no organomegaly or masses appreciated EXTR: warm, well perfused, no C/C/E SKIN: warm and dry, no rash, persistent bruising noted to the forearms NEURO: Alert and oriented x 3, nonfocal Objective Labs 04/08/23 05:20 04/08/23 05:20 Labs: Laboratory Results - last 24 hr 04/07/23 04/07/23 04/07/23 14:55 15:48 16:11 WBC 2.4 L RBC 1.84 L Hgb 6.0 L* Hct 17.4 L* MCV 94.4 MCH 32.8 MCHC 34.7 RDW 19.3 H Plt Count 132 L Neut % (Auto) 77.9 H Lymph % (Auto) 16.1 L Cobb % (Auto) 2.8 L Eos % (Auto) 1.8 L Baso % (Auto) 1.4 Neut # (Auto) 1900 Lymph # (Auto) 400 L Cobb # (Auto) 100 Eos # (Auto) 0 Baso # (Auto) 0 PT 15.6 H INR 1.4 H APTT 30 Sodium 133 L Potassium 3.7 Chloride 100 Carbon Dioxide 28 BUN 23 H Creatinine 0.99 Estimated GFR 59 L BUN/Creatinine Ratio 23.2 H Glucose 141 H Calcium 9.8 Magnesium 2.1 Total Bilirubin 1.5 H AST 70 H ALT 16 Alkaline Phosphatase 164 H Total Creatine Kinase 50 Troponin I 0.088 H NT-Pro-B Natriuret Pep 614 H Total Protein 6.7 Albumin 3.4 L Globulin 3.3 Albumin/Globulin Ratio 1.0 Lipase 91 Urine RBC 10-30/hpf H Urine WBC 1-5/hpf Ur Squamous Epith Cells 1-5 /hpf Urine Bacteria None seen Ur Culture Indicated? Cult not indicated Vol Urine Centrifuged 10ml (spun) Blood Type B Negative Antibody Screen Negative Crossmatch See Detail 04/07/23 17:00 WBC RBC Hgb Hct MCV MCH MCHC RDW Plt Count Neut % (Auto) Lymph % (Auto) Cobb % (Auto) Eos % (Auto) Baso % (Auto) Neut # (Auto) Lymph # (Auto) Cobb # (Auto) Eos # (Auto) Baso # (Auto) PT INR APTT Sodium Potassium Chloride Carbon Dioxide BUN Creatinine Estimated GFR BUN/Creatinine Ratio Glucose Calcium Magnesium Total Bilirubin AST ALT Alkaline Phosphatase Total Creatine Kinase Troponin I 0.090 H NT-Pro-B Natriuret Pep Total Protein Albumin Globulin Albumin/Globulin Ratio Lipase Urine RBC Urine WBC Ur Squamous Epith Cells Urine Bacteria Ur Culture Indicated? Vol Urine Centrifuged Blood Type Antibody Screen Crossmatch Assessment & Plan Assessment & Plan narrative: 1. Acute on chronic anemia - Hg 6. Getting transfused PRBC. Repeat h/h in the morning after transfusion complete. - start PPI given some NSAID use, but suspect given normocytic anemia is related to breast cancer treatments. 2. Metastatic breast cancer to bone - hold kisqali - continue chronic pain control with morphine, oxycodone, tylenol but hold ibuprofen 3. Hypertension, chronic - not currently on home antihypertensives 4. Hypothyroidism, chronic - continue home levothyroxine 5. HLD - continue home rosuvastatin Code: DNR, surrogate is the patient's daughter DVT: SCDs given acute anemia Dispo: Depending on trend of anemia likely discharge home tomorrow after transfusion, admitted observation I have utilized all available immediate resources to obtain, update, or review the patient's current medications. Discussed with ER provider to formulate the above assessment and plan. I have reviewed patient's previous documentation, along with this visits labs, imaging and EKG personally.
[2023-04-07 18:46] LABS: Influenza A - CEPHEID Flu A NEGATIVE (NEGATIVE); Influenza B - CEPHEID Flu B NEGATIVE (NEGATIVE); Respiratory Syncytial Virus Negative (Negative)
[2023-04-07 19:05] LABS: COVID-19 CEPHEID 4-PLEX PCR Negative (Negative)
[2023-04-07] MEDS: PANTOPRAZOLE 40 MG VIAL IV (21:51)
[2023-04-07] MEDS: MORPHINE ER 15 MG TABLET PO (23:13)
[2023-04-07] MEDS: SODIUM CHLORIDE 0.9% 1,000 ML 84 ML IV (23:13)
[2023-04-08] VITALS (12 sets, daily range): BP systolic 119–155; BP diastolic 67–75; PULSE 71–88; RESP 16–20; TEMP 35.9–37; O2SAT 93–99
[2023-04-08 05:41] LABS: Mean Corpuscular HGB Conc 34.6 % (30-36); Mean Corpuscular Hemoglobin 31.9 PG (26-34); Mean Corpuscular Volume 92.3 fL (80-100); Platelet Count 112 X10^3/uL (150-400); Red Blood Cell Count 1.92 X10^6/uL (4.0-5.2); Red Cell Distribution Width 23.1 % (11.6-14.8)
[2023-04-08 05:42] LABS: BUN Creatinine Ratio 20.2 (6-22); Blood Urea Nitrogen 18 mg/dL (7-17); Calcium 9.6 mg/dL (8.4-10.2); Carbon Dioxide 32 mmol/L (22-32); Chloride 103 mmol/L (98-107); Estimated Glomerular Filt Rate > 60 mL/min (>60); Glucose 105 mg/dL (80-110); HEMOLYSIS < 15 (0-50); Potassium 3.9 mmol/L (3.4-5.1); Sodium 135 mmol/L (137-145)
[2023-04-08 05:47] LABS: Add Manual Diff / Slide Review YES
[2023-04-08 05:50] LABS: Hematocrit 17.7 % (36-46); Hemoglobin 6.1 g/dL (12.0-16.0); White Blood Cell Count 1.6 X10^3/uL (4.5-11.0)
[2023-04-08 05:54] LABS: Troponin I 0.082 ng/mL (0.01-0.034)
[2023-04-08 06:03] LABS: Anisocytosis 3+; Neutrophils Absolute Manual 816 /uL (3000-5900); Total Cells Counted 100
[2023-04-08 06:04] LABS: Macrocytosis 1+
[2023-04-08] MEDS: PANTOPRAZOLE 40 MG VIAL IV ×2 (08:23→20:32)
[2023-04-08] MEDS: ACETAMINOPHEN 325 MG TABLET 650 MG PO ×2 (08:25→20:34)
--- NOTE | 2023-04-08 10:48 | PM.PN.1 ---
Subjective Subjective Interval history: 77 F admitted with anemia. Overnight had a fever and a headache during her transfusion, sent transfusion reaction with no obvious reactivity. Hg only 6.1 today, re-ordered 1U PRBC but need to confirm with pathologist okay to transfuse per blood bank. UA negative, CXR unremarkable. She remains weak today. Exam Vital Signs (past 8 hours): - 04/08/23 04:00 04/08/23 04:17 04/08/23 08:00 Temperature 96.7 F L 96.9 F L Pulse Rate 71 85 Respiratory Rate 18 16 Blood Pressure 134/73 155/70 H Pulse Oximetry 94 97 99 Oxygen Delivery Method Room Air Oxygen Flow Rate 0 0 04/08/23 08:00 Temperature Pulse Rate Respiratory Rate Blood Pressure Pulse Oximetry 99 Oxygen Delivery Method Room Air Oxygen Flow Rate 0 Oxygen Delivery Method Room Air Oxygen Flow Rate 0 Narrative Exam Narrative: GEN: Elderly female, alert and oriented x 3, pale, NAD HEENT:NC, Face symmetric CHEST: Respiratory excursions symmetric, CTAB CV: RRR, no M/R/G ABD: Soft, NT/ND, BT present in all 4 quadrants, no organomegaly or masses appreciated EXTR: warm, well perfused, no C/C/E SKIN: warm and dry, no rash, persistent bruising noted to the forearms NEURO: Alert and oriented x 3, nonfocal Objective Labs 04/08/23 05:20 04/08/23 05:20 Labs: Laboratory Results - last 24 hr 04/07/23 04/07/23 04/07/23 14:55 15:48 16:11 WBC 2.4 L RBC 1.84 L Hgb 6.0 L* Hct 17.4 L* MCV 94.4 MCH 32.8 MCHC 34.7 RDW 19.3 H Plt Count 132 L Neut % (Auto) 77.9 H Lymph % (Auto) 16.1 L [place] % (Auto) 2.8 L Eos % (Auto) 1.8 L Baso % (Auto) 1.4 Neut # (Auto) 1900 Lymph # (Auto) 400 L [place] # (Auto) 100 Eos # (Auto) 0 Baso # (Auto) 0 Total Counted Seg Neutrophils % Band Neutrophils % Lymphocytes % (Manual) Monocytes % (Manual) Eosinophils % (Manual) Neutrophils # (Manual) RBC Morphology Anisocytosis Macrocytosis PT 15.6 H INR 1.4 H APTT 30 Sodium 133 L Potassium 3.7 Chloride 100 Carbon Dioxide 28 BUN 23 H Creatinine 0.99 Estimated GFR 59 L BUN/Creatinine Ratio 23.2 H Glucose 141 H Calcium 9.8 Magnesium 2.1 Total Bilirubin 1.5 H AST 70 H ALT 16 Alkaline Phosphatase 164 H Total Creatine Kinase 50 Troponin I 0.088 H NT-Pro-B Natriuret Pep 614 H Total Protein 6.7 Albumin 3.4 L Globulin 3.3 Albumin/Globulin Ratio 1.0 Lipase 91 Urine RBC 10-30/hpf H Urine WBC 1-5/hpf Ur Squamous Epith Cells 1-5 /hpf Urine Bacteria None seen Ur Culture Indicated? Cult not indicated Vol Urine Centrifuged 10ml (spun) SARS-CoV-2 (PCR) Influenza A (RT-PCR) Influenza B (RT-PCR) RSV (PCR) Blood Type B Negative Antibody Screen Negative Crossmatch See Detail Transfusion React Rpt Cancelled Donor Unit # Cancelled Lab Clerical Err Check Cancelled Blood Bag Check Cancelled Pre-Trans Blood Type Cancelled Pre-Trans Vis Hemolysis Cancelled Pre-Trans Antibody Scrn Cancelled Post-Trans Blood Type Cancelled Post-Tx Visible Hemolys Cancelled Post-Trans Antibody Scrn Cancelled Reaction Path Interpret Cancelled 04/07/23 04/07/23 04/07/23 17:00 18:00 18:59 WBC RBC Hgb Hct MCV MCH MCHC RDW Plt Count Neut % (Auto) Lymph % (Auto) [place] % (Auto) Eos % (Auto) Baso % (Auto) Neut # (Auto) Lymph # (Auto) [place] # (Auto) Eos # (Auto) Baso # (Auto) Total Counted Seg Neutrophils % Band Neutrophils % Lymphocytes % (Manual) Monocytes % (Manual) Eosinophils % (Manual) Neutrophils # (Manual) RBC Morphology Anisocytosis Macrocytosis PT INR APTT Sodium Potassium Chloride Carbon Dioxide BUN Creatinine Estimated GFR BUN/Creatinine Ratio Glucose Calcium Magnesium Total Bilirubin AST ALT Alkaline Phosphatase Total Creatine Kinase Troponin I 0.090 H NT-Pro-B Natriuret Pep Total Protein Albumin Globulin Albumin/Globulin Ratio Lipase Urine RBC Urine WBC Ur Squamous Epith Cells Urine Bacteria Ur Culture Indicated? Vol Urine Centrifuged SARS-CoV-2 (PCR) Negative Influenza A (RT-PCR) Flu a negative Influenza B (RT-PCR) Flu b negative RSV (PCR) Negative Blood Type Antibody Screen Crossmatch Transfusion React Rpt No discrepancies Donor Unit # [id number] Lab Clerical Err Check No error found Blood Bag Check Pre-Trans Blood Type B negative Pre-Trans Vis Hemolysis No Pre-Trans Antibody Scrn Negative Post-Trans Blood Type B negative Post-Tx Visible Hemolys No Post-Trans Antibody Scrn Negative Reaction Path Interpret 04/08/23 05:20 WBC 1.6 L* RBC 1.92 L Hgb 6.1 L* Hct 17.7 L* MCV 92.3 MCH 31.9 MCHC 34.6 RDW 23.1 H Plt Count 112 L Neut % (Auto) Not Reportable Lymph % (Auto) Not Reportable [place] % (Auto) Not Reportable Eos % (Auto) Not Reportable Baso % (Auto) Not Reportable Neut # (Auto) Lymph # (Auto) Not Reportable [place] # (Auto) Not Reportable Eos # (Auto) Baso # (Auto) Not Reportable Total Counted 100 Seg Neutrophils % 50.0 Band Neutrophils % 1.0 L Lymphocytes % (Manual) 36.0 Monocytes % (Manual) 6.0 Eosinophils % (Manual) 7.0 H Neutrophils # (Manual) 816 L RBC Morphology See below Anisocytosis 3+ H Macrocytosis 1+ H PT INR APTT Sodium 135 L Potassium 3.9 Chloride 103 Carbon Dioxide 32 BUN 18 H Creatinine 0.89 Estimated GFR > 60 BUN/Creatinine Ratio 20.2 Glucose 105 Calcium 9.6 Magnesium Total Bilirubin AST ALT Alkaline Phosphatase Total Creatine Kinase Troponin I 0.082 H NT-Pro-B Natriuret Pep Total Protein Albumin Globulin Albumin/Globulin Ratio Lipase Urine RBC Urine WBC Ur Squamous Epith Cells Urine Bacteria Ur Culture Indicated? Vol Urine Centrifuged SARS-CoV-2 (PCR) Influenza A (RT-PCR) Influenza B (RT-PCR) RSV (PCR) Blood Type Antibody Screen Crossmatch Transfusion React Rpt Donor Unit # Lab Clerical Err Check Blood Bag Check Pre-Trans Blood Type Pre-Trans Vis Hemolysis Pre-Trans Antibody Scrn Post-Trans Blood Type Post-Tx Visible Hemolys Post-Trans Antibody Scrn Reaction Path Interpret [facility] Medical History Lumbar facet arthropathy Lumbar spondylosis Osteoarthritis, hip, bilateral Low back pain Lumbar radiculopathy Breast cancer, right (2005) Cervical cancer (1986) Palpitations HLD (hyperlipidemia) Partial tear of right rotator cuff Subacromial impingement of right shoulder Hypothyroid URI (upper respiratory infection) Surgical History History of biopsy (11/16/13) History of hysterectomy Social History household members: none Smoking Status: Never smoker alcohol intake: former Assessment & Plan Assessment & Plan narrative: 1. Acute on chronic anemia with possible transfusion reaction. - Hg 6 on admission, had fever and headache with transfusion, no obvious findings from transfusion reaction panel sent. - Reordered 1 U PRBC today, monitor closely for transfusion reaction. - started PPI given some NSAID use, but suspect given normocytic anemia is related to breast cancer treatments. - stop home aspirin. - SCDs for DVT ppx. 2. Metastatic breast cancer to bone - hold kisqali - continue chronic pain control with morphine, oxycodone, tylenol but hold ibuprofen 3. Hypertension, chronic - not currently on home antihypertensives 4. Hypothyroidism, chronic - continue home levothyroxine 5. HLD - continue home rosuvastatin Code: DNR, surrogate is the patient's daughter DVT: SCDs given acute anemia Dispo: inpatient status, likely discharge back home when improved symptomatically. I have utilized all available immediate resources to obtain, update, or review the patient's current medications. Discussed with blood bank staff, case management, to formulate the above assessment and plan. I have reviewed patient's previous documentation, along with this visits labs, imaging and EKG personally.
--- NOTE | 2023-04-08 11:20 | CM.DANOTE ---
Patient is a 77 yo female who was admitted on 04/07/23 for Weakness. Pt has [facility] for insurance and her PCP is Anibal Chisholm and her Oncologist is Dr. Moody at [facility]. EMR was reviewed. Per MD, pt with hx of current breast CA with mets to the bone and receiving regular Oncology tx at baseline and admitted for acute chronic anemia and attempted transfusion but pt had reaction and will attempt giving blood again today and pt not yet ready for Hospice/Comfort Care at this time. SW met bedside with pt and explained role and pt confirmed that she still lives alone in [place], her spouse last year. She has some family in [place], daughter and grand children. Family has been assisting and they take turns since daughter works some days, grand children can assist the others. She has been using her spouse's four wheel walker, not currently driving. Pt states her DPOA is her Dtr Phyllis in her Living Will. Pt confirms that since her admission and discharge a couple months ago in Jan 2023, she feels that she has had enough support with family assisting as needed and [facility] RN/MALLET AND DIE CUTTER/COLOR ROOM ATTENDANT. Pt does not have 24/7 assist at this time and her goal is to remain in her home and she feels that this is manageable as long as she has the strength to get around the house. SW inquired if pt has discussed LTC plan with her family if she gets to the point of not being able to mobilize independently and pt states they have not and that she could not afford to go to ANH type setting but that likely family could move in with her if she needed increased assist. Patient also adamant about not wanting any fci. Pt preference is to discharge home and states her granddtr can transport and she would like to continue [facility] and only wants RN/MALLET AND DIE CUTTER/COLOR ROOM ATTENDANT resumed at this time. SW contacted [facility] and confirmed pt is open to those disciplines and no issue with accepting pt back but could benefit from new F2F and orders. SW emailed clinicals and completed F2F and HH orders done in EMR. SW updated RN. Plan: SW to follow closely for transfusion attempt today towards plan of d/c to home with family support and [facility] and any further identified discharge planning needs. ROLANDO Dykes Discharge Planning/Care Management CM Discharge Assessment Start: 04/08/23 11:13 Freq: Status: Active Protocol: Document 04/08/23 11:18 BF (Rec: 04/08/23 11:20 BF [id number]) Discharge Planning Assessment Assigned Trade [employer] Official ROLANDO Hanks DPOA/Assigned Designee Name Jaycee Ferguson Contact Information [phone] Advance Directives? Yes: POLST Advance Directives on File Yes History Provided By Patient,Medical Record Has Patient been admitted in last 30 No days? Comment last admit a couple months ago in Jan 2023 and d/c home with [facility] Prior Living Arrangements House Household Members none Type of transporation used prior to Relies on Others admit Independent with ADL's Yes: mostly Is patient alert and oriented? Yes Needs Assistance With Meal Prep,Home Chores / Shopping Caregiver for Another No Community Services used prior to Home Health Aid,Home Health admission: Nurse,Social Work Comment Open with [facility] RN/ALISON/COLOR ROOM ATTENDANT DME Already Rented / Owned FWW / Walker,Cane Comment Her spouse last year, has his four wheel walker. Patient/Family Preference Home with Home Health Barriers to Discharge No Comment Family will be taking turns assisting patient. Discharge Plan Home with Home Health Community Services Home Health Aid,Home Health Nurse,IV Therapy,Social Work Transportation Arrangement Family Referrals Initiated Home Health Additional Comment Resume [facility] If patient plan is home with home health Yes : Has signed face to face form been completed? Medicare Choice List Provided Yes Medicare choice list reviewed on patient electronic tablet with SNF/HH Preference Resume [facility] Whiteboard Updated in Patient Room with Yes name and ext. # of Trade Union Official Review Status In Process Please Provide Date Initial DC 04/08/23 Assessment Was Performed Next Review Type Continued Stay Review
--- NOTE | 2023-04-08 11:30 | PC.NURSE ---
Late Entry: TAR documentation finalized per Marv RN nursing note.
[2023-04-08] MEDS: LIDOCAINE 5% PATCH 1 EACH TOP (11:57)
[2023-04-08 18:45] LABS: Hematocrit 22.3 % (36-46); Hemoglobin 7.4 g/dL (12.0-16.0)
[2023-04-08] MEDS: OLANZapine 2.5 MG TABLET 5 MG PO (20:32)
[2023-04-08] MEDS: ATORVASTATIN 20 MG TABLET PO (20:32)
[2023-04-08] MEDS: polyethylene glycoL 3350 17 GM POWD.PACK PO (20:32)
[2023-04-08] MEDS: SODIUM CHLORIDE 0.9% FLUSH 10 ML IV (20:37)
[2023-04-09] VITALS (9 sets, daily range): BP systolic 127–146; BP diastolic 63–80; PULSE 69–94; RESP 16; TEMP 35.9–36.5; O2SAT 94–100
--- NOTE | 2023-04-09 01:21 | PC.NURSE ---
Patient is alert and oriented. Breath sounds CTA with RA sat of 93%. HRR w/BP of 144/75. BT present and is passing flatus but has not had a BM since 04/03; medicated with Miralax. Is voiding on toilet and denies dysuria. Is able to move herself in bed but is provided SBA out of bed related to generalized weakness; uses walker as well. Complained of pain in left rib cage and was medicated with tylenol but continued to complain of pain so warm blanket applied to area and is now asleep. Was wearing bilateral calf SCD's, however requested they be off at night as the compression keeps her awake. Has chronic neuropathy in toes/heels of bilateral feet which is unchanged. Fall risk score is high and bed alarm is activated.
[2023-04-09] MEDS: SODIUM CHLORIDE 0.9% FLUSH 10 ML IV (05:29)
[2023-04-09] MEDS: LEVOTHYROXINE 50 MCG TABLET PO (05:50)
[2023-04-09 06:04] LABS: Mean Corpuscular HGB Conc 34.5 % (30-36); Mean Corpuscular Hemoglobin 29.4 PG (26-34); Mean Corpuscular Volume 85.5 fL (80-100); Platelet Count 103 X10^3/uL (150-400); Red Blood Cell Count 2.37 X10^6/uL (4.0-5.2); Red Cell Distribution Width 27.7 % (11.6-14.8)
[2023-04-09 06:08] LABS: Hematocrit 20.3 % (36-46); White Blood Cell Count 1.6 X10^3/uL (4.5-11.0)
[2023-04-09 06:09] LABS: Add Manual Diff / Slide Review YES
[2023-04-09 06:28] LABS: Alanine Aminotransferase 15 IU/L (<35); Alkaline Phosphatase 151 U/L (38-126); Aspartate Aminotransferase 46 IU/L (14-36); BUN Creatinine Ratio 21.1 (6-22); Bilirubin Total 1.9 mg/dL (0.2-1.3); Blood Urea Nitrogen 16 mg/dL (7-17); Calcium 9.6 mg/dL (8.4-10.2); Carbon Dioxide 28 mmol/L (22-32); Chloride 103 mmol/L (98-107); Estimated Glomerular Filt Rate > 60 mL/min (>60); Glucose 103 mg/dL (80-110); HEMOLYSIS < 15 (0-50); Sodium 134 mmol/L (137-145)
[2023-04-09 06:43] LABS: Neutrophils Absolute Manual 944 /uL (3000-5900); Total Cells Counted 100
[2023-04-09 06:44] LABS: Anisocytosis 2+; Poikilocytosis 1+
[2023-04-09] MEDS: PANTOPRAZOLE 40 MG VIAL IV (09:02)
[2023-04-09] MEDS: polyethylene glycoL 3350 17 GM POWD.PACK PO (09:02)
[2023-04-09] MEDS: ACETAMINOPHEN 325 MG TABLET 650 MG PO (09:07)
--- NOTE | 2023-04-09 14:00 | PT.IIE ---
Current Diagnoses Anemia, unspecified (04/07/23) Surgical History (Last Reviewed 04/07/23 @ 16:50 by Beth Vallejo DO) History of biopsy (11/16/13) History of hysterectomy Medical History (Last Reviewed 04/07/23 @ 16:50 by Beth Vallejo DO) Breast cancer, right (2005) Cervical cancer (1986) HLD (hyperlipidemia) Hypothyroid Low back pain Lumbar facet arthropathy Lumbar radiculopathy Lumbar spondylosis Osteoarthritis, hip, bilateral Palpitations Partial tear of right rotator cuff Subacromial impingement of right shoulder URI (upper respiratory infection) Physical Therapy Inpatient Evaluation/Re-Eval M1 PT/OT-IP Prior Functional Status Start: 04/09/23 15:13 Freq: NEEDED Status: Active Protocol: Document 04/09/23 14:00 AB (Rec: 04/09/23 15:25 AB [id number]) Medical Review Prior Functional Status Medical History Reviewed Yes Communication able to make needs known Mobility and Gait pt stated that she was modified independent with all mobilities and ambulation using a 4WW; stated that she just started using a 4WW ~ month ago due to weakness, no AD prior to that. Activities of Daily Living and IADL's pt stated that a bath aide comes in to assist her but she has only been doing sponge bathing due to her getting tired easily and does not think she can to showers Social History Household Members none Living Arrangements House Number of Floors (Floors) One Floor Number of Stairs To Enter/Railing? 2 steps B rails to enter the house Home Environment Standard Height Toilet,Tub/ Shower Home Equipment Four Wheel Walker,Shower Seat without Backrest,Hand Held Shower,Grab Bars Near Toilet, Grab Bars In Shower Additional Social History Comment pt stated that she has home health bath aide, nurse that comes in once a week to assist her stated that family lives ~ 1mile away from her and will be able to assist if needed but cannot stay with her. M2 PT-IP Current Condition Start: 04/09/23 15:13 Freq: NEEDED Status: Active Protocol: Document 04/09/23 14:00 AB (Rec: 04/09/23 15:25 AB [id number]) Physical Therapy Current Condition Current Condition Evaluation Date 04/09/23 Treatment Diagnosis anemia; breast CA with bone mets; weakness Onset Date 04/07/23 M3 PT-IP Subjective Start: 04/09/23 15:13 Freq: NEEDED Status: Active Protocol: Document 04/09/23 14:00 AB (Rec: 04/09/23 15:25 AB [id number]) Subjective Physical Therapy Visit Type Type Initial Evaluation Visit Start Time 14:00 Visit Stop Time 14:35 Number of SHREDDING SPECIALIST Visits 0 Physical Therapy Visit Comments Patient Comments agreeable to do PT; wants to go home Therapy Pain Assessment Pain When Pain Assessed At Rest Location Left Ribs Intensity 1 Scale Used Numeric (0 - 10) Pain Management Techniques Distraction,Modification of Treatment,Re-positioning M4 PT-IP Mobility and Gait Start: 04/09/23 15:13 Freq: NEEDED Status: Active Protocol: Document 04/09/23 14:00 AB (Rec: 04/09/23 15:25 AB [id number]) PT-Bed Mobility Assessment Supine to Sit Supine to Sit Standby Assistance Sit to Supine Sit to Supine Standby Assistance PT-Transfer Assessment Sit to and From Stand Sit to and from Stand Standby Assistance,1 Person Assistance,Use of Upper Extremities Equipment Transfer Assistive Device Gait Belt,4 Wheeled Walker Orthotic/Prosthetic Devices or Brace: No Comments Mobility Comments pt supine in bed and agreeable to do PT. obtained PLOF and home set up. BP: 133/80. pt completed supine to sit SBA. able to sit on EOb SBA. completed sit to stand SBA and ambulated in room using 4WW SBA. pt completed up/down step stool holding on to edge of door/wall for support bilateral min A with first step and completed again only needing CGA. pt ambulated back to her bed using 4WW SBA. completed sit to supine SBA. positioned pt in bed. call light and table placed within reach. informed pt regarding HHPT to improve mobility and activity tolerance. informed hospitalist. Gait Assessment Gait Gait Assistance Required: Standby Assistance Distance (Feet) 25 Able to Maintain Weight Bearing Status Yes During Gait Assistive Devices Assistive Device Gait Belt,4 Wheeled Walker Orthotic/Prosthetic Devices or Brace: No Gait Deviations General Gait Pattern Decreased Stride Length, Decreased Feet Clearance,Step- to Gait Factors Limiting Gait Function Factors Limiting Gait Function Decreased Activity Tolerance, Decreased Strength,Pain,Poor Balance Stair Climbing Assessment Evaluation Level of Assist On Stairs Contact Guard Assistance Devices Stair Climbing Assistive Devices Left Railing,Right Railing Technique/Endurance Stair Climbing Direction Ascend and Descend Stair Climbing Technique Step to Step Number of Steps Climbed 1 Query Text: Stair Climbing Set # Repetitions (reps) 2 PT-Balance Assessment Sitting Balance and Reactions Static Sitting Balance Ability Normal Dynamic Sitting Balance Ability Good Standing Balance and Reactions Static Standing Balance Ability Good Dynamic Standing Balance Ability Fair Device Used 4WW M5 PT-IP Objective Assessments Start: 04/09/23 15:13 Freq: NEEDED Status: Active Protocol: Document 04/09/23 14:00 AB (Rec: 04/09/23 15:25 AB [id number]) Orientation Orientation/Cognition Level of Alertness Alert Orientation Name,Place,Situation Language Function Ability No Deficits Noted Safety Awareness Decreased Safety Awareness Memory Description No Deficits Noted Gross Range of Motion Lower Extremity ROM Assessment Within Functional Limits Strength Comments Strength Comments RLE: 4-/5 LLE: 4/5 Coordination Assessment Gross Coordination Gross Coordination WNL Sensation Assessment Sensation Gross Sensation WNL Muscle Tone Muscle Tone WNL Yes M6 PT-IP Treatment Start: 04/09/23 15:13 Freq: NEEDED Status: Active Protocol: Document 04/09/23 14:00 AB (Rec: 04/09/23 15:25 AB [id number]) Physical Therapy Treatment Education Education Provided Safety M7 PT-IP Assessment and Plan Start: 04/09/23 15:13 Freq: NEEDED Status: Active Protocol: Document 04/09/23 14:00 AB (Rec: 04/09/23 15:25 AB [id number]) PT Summary Assessment and Plan Potential Rehabilitation Potential Fair Status of Condition at Evaluation Evolving Summary Impairments Pain,ROM,Strength,Balance, Coordination,Sensation,Tone, Cognition,Bed Mobility, Transfers,Gait,Activity Tolerance Assessment Summary Pt is a 77 y/o F who presented to the ED due to c/o weakness . pt found to have anemia and received blood transfusion. pt also has dx of breast CA with bone mets. pt requiring SBA to CGA with mobility using 4WW and plans to go home. pt will benefit from HHPT. Goals Bed Mobility Goal Independent Transfer Goal Independent,Four Wheeled Walker Gait Goal Independent,Four Wheel Walker Gait Distance 250 Other Goals up/down 2 steps B rails mod I Days to Meet Goals 5 Frequency of Treatment Frequency Of Treatment Once a Day Treatment Plan Physical Therapy Treatment Plan Bed Mobility Training,Transfer Training,Gait Training, Therapeutic Exercise,Balance Retraining,Discharge Planning, Hot or Cold Pack,Neuromuscular Re-ed,Coordination Retraining Precautions Other Precautions chemo precautions Recommendations To Nursing Amount of Assist Needed 1 Person Assist Discharge Recommendations PT Discharge Recommendations Home with Assistance,Home Health Transportation Needs at Discharge Private Vehicle
--- NOTE | 2023-04-09 14:37 | PM.DS.1 ---
History of Present Illness History of Present Illness Chief complaint: weakness Narrative: 76-year-old female with metastatic breast cancer diagnosed in 2013, on kisqali for metastatic disease, hypothyroidism , HLD, GERD who presents with weakness. Large dark stool approx 4 days ago, none since. Denies abdominal pain, chest pain palpitations. She reports feeling weak the last 1-2 month, with progressively worsening shortness of breath. She was being visited by her home social services today thought that she did not look good and called an ambulance who brought her to the emergency room. She denies any fevers, chills, abdominal pain, nausea, vomiting, rash. . In the emergency room, the patient's vital signs were unremarkable, though she did have a temperature of a 101.1 point after I saw her. Urinalysis was unremarkable as was a chest x-ray. Respiratory panel is pending. Labs were notable for an indeterminate troponin, mildly elevated bilirubin, and a hemoglobin of 6. She was ordered for transfusion from the emergency room, and was admitted for symptomatic anemia. Discharge Providers Provider Date of admission: 04/07/23 18:24 Discharge Date: 04/09/23 Primary care physician: Anibal Chisholm MD Consults: 04/07/23 14:55 Consult to SLIP COVER ESTIMATOR - Advertising Dispatch Clerks Supervisor Stat Comment: 04/08/23 11:10 Consult to Home Health Routine Comment: Acute chronic anemia, breast CA with mets, hyperte Reason For Exam: Set up/Resume [facility] HH RN/AUTOCAD DRAFTSMAN/SLIP COVER ESTIMATOR when d/c home 04/09/23 11:53 Consult to Physical Therapy Evaluate & Treat Comment: Physician Instructions: Evaluate and Treat Discharge provider: Irwin Dougherty DO Summary Hospital Course Discharge Diagnosis: 1. Acute on chronic anemia with possible transfusion reaction. - Hg 6 on admission, had fever and headache with transfusion, no obvious findings from transfusion reaction panel sent. - Reordered 1 U PRBC today, monitor closely for transfusion reaction. - started PPI given some NSAID use, but suspect given normocytic anemia is related to breast cancer treatments. - hold home aspirin. - SCDs for DVT ppx. 2. 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 Hypertension, chronic - not currently on home antihypertensives 4. Hypothyroidism, chronic - continue home levothyroxine 5. HLD - continue home rosuvastatin Hospital Course: Admitted for fatigue and found to have normocytic anemia with Hgb 6.0. Received 2 units of PRBCs and felt better. No evidence of GI bleeding and given MCV normal and platelets and WBC also low, likely pancytopenia from chemo meds. Patient will follow-up with oncologist in a few days to discuss anemia and chemo meds. PT worked with her and HH recommended. Exam Vital Signs (past 8 hours): - 04/09/23 08:00 04/09/23 08:00 04/09/23 09:50 Temperature 96.7 F L 97.1 F L Pulse Rate 69 85 Respiratory Rate 16 16 Blood Pressure 146/77 H 138/74 Pulse Oximetry 100 100 Oxygen Delivery Method Room Air Oxygen Flow Rate 0 0 04/09/23 10:07 04/09/23 10:28 04/09/23 12:00 Temperature 97.1 F L 96.7 F L Pulse Rate 85 82 Respiratory Rate 16 16 Blood Pressure 138/74 137/63 Pulse Oximetry 95 Oxygen Delivery Method Room Air Oxygen Flow Rate 0 04/09/23 12:00 04/09/23 12:13 04/09/23 12:35 Temperature 97.2 F L 97.2 F L 97.3 F L Pulse Rate 89 89 81 Respiratory Rate 16 16 16 Blood Pressure 139/80 139/80 127/80 Pulse Oximetry 95 95 Oxygen Delivery Method Oxygen Flow Rate 0 Oxygen Delivery Method Room Air Oxygen Flow Rate 0 Narrative Exam Narrative: GEN: Elderly female, alert and oriented x 3, pale, NAD HEENT:NC, Face symmetric CHEST: Respiratory excursions symmetric, CTAB CV: RRR, no M/R/G ABD: Soft, NT/ND, BT present in all 4 quadrants, no organomegaly or masses appreciated EXTR: warm, well perfused, no C/C/E SKIN: warm and dry, no rash, persistent bruising noted to the forearms NEURO: Alert and oriented x 3, nonfocal Objective Labs 04/09/23 05:40 04/09/23 05:40 Labs: Laboratory Results - last 24 hr 04/07/23 04/08/23 04/09/23 15:48 18:02 05:40 WBC 1.6 L* RBC 2.37 L Hgb 7.4 L 7.0 L Hct 22.3 L 20.3 L* MCV 85.5 D MCH 29.4 MCHC 34.5 RDW 27.7 H Plt Count 103 L Neut % (Auto) Not Reportable Lymph % (Auto) Not Reportable [place] % (Auto) Not Reportable Eos % (Auto) Not Reportable Baso % (Auto) Not Reportable Lymph # (Auto) Not Reportable [place] # (Auto) Not Reportable Baso # (Auto) Not Reportable Total Counted 100 Seg Neutrophils % 59.0 Lymphocytes % (Manual) 31.0 Atypical Lymphs % 3.0 H Eosinophils % (Manual) 7.0 H Neutrophils # (Manual) 944 L RBC Morphology Not Reportable Poikilocytosis 1+ H Anisocytosis 2+ H Sodium 134 L Potassium 4.0 Chloride 103 Carbon Dioxide 28 BUN 16 Creatinine 0.76 Estimated GFR > 60 BUN/Creatinine Ratio 21.1 Glucose 103 Calcium 9.6 Total Bilirubin 1.9 H AST 46 H ALT 15 Alkaline Phosphatase 151 H Total Protein 6.0 L Albumin 3.0 L Globulin 3.0 Albumin/Globulin Ratio 1.0 Blood Type B Negative Antibody Screen Negative Crossmatch See Detail Transfusion React Rpt Cancelled Donor Unit # Cancelled Lab Clerical Err Check Cancelled Blood Bag Check Cancelled Pre-Trans Blood Type Cancelled Pre-Trans Vis Hemolysis Cancelled Pre-Trans Antibody Scrn Cancelled Post-Trans Blood Type Cancelled Post-Tx Visible Hemolys Cancelled Post-Trans Antibody Scrn Cancelled Reaction Path Interpret Cancelled PFSH Medical History Lumbar facet arthropathy Lumbar spondylosis Osteoarthritis, hip, bilateral Low back pain Lumbar radiculopathy Breast cancer, right (2005) Cervical cancer (1986) Palpitations HLD (hyperlipidemia) Partial tear of right rotator cuff Subacromial impingement of right shoulder Hypothyroid URI (upper respiratory infection) Surgical History History of biopsy (11/16/13) History of hysterectomy Social History household members: none Smoking Status: Never smoker alcohol intake: former Discharge Plan Discharge Plan Patient Disposition: Home Health Service Provider Discharge Comment: You were found to be anemic and we gave you 2 blood transfusions which helped your anemia. Please follow-up with your oncologist to discuss if your anemia may be due to your chemo drugs. Discharge orders & Medications Prescriptions: Continued aspirin 81 MG tablet,delayed release (DR/EC) 81 mg PO QDAY Qty: 0 lidocaine 5 % adhesive patch,medicated 1 patch topical DAILY Qty: 30 0RF hydrocodone-acetaminophen 5-325 mg tablet 1 tab PO Q4-6H PRN (Reason: Pain (Scale Score 4-6)) methocarbamol 500 mg tablet 500 mg PO Q8H PRN (Reason: muscle spasm) sennosides [Senna Lax] 8.6 mg Tablet 8.6 mg PO BID PRN (Reason: Constipation) polyethylene glycol 3350 [Miralax] 17 gram Powder In Packet 17 g PO BID prochlorperazine maleate 10 mg Tablet 10 mg PO Q6H PRN (Reason: Nausea And Vomiting) ferrous sulfate 325 mg (65 mg iron) Tablet 325 mg PO DAILY simethicone [Gas Relief (simethicone)] 125 mg Tablet,Chewable 125 mg PO QID PRN (Reason: gas) morphine 15 mg tablet extended release 15 mg PO BID PRN (Reason: severe pain) docusate sodium 250 mg Capsule 250 mg PO BID PRN (Reason: Constipation) oxycodone 5 mg tablet 5 mg PO Q3H PRN (Reason: breakthrough pain) levothyroxine 50 mcg Tablet 50 mcg PO DAILY omeprazole 20 mg Capsule,Delayed Release(Dr/Ec) 20 mg PO BID ibuprofen [Motrin IB] 200 mg Capsule 400 mg PO BID cholecalciferol (vitamin D3) [Vitamin D3] 50 mcg (2,000 unit) Capsule 50 mcg PO DAILY letrozole 2.5 mg Tablet 2.5 mg PO DAILY Qty: 90 3RF Kisqali 400 mg PO DAILY Patient Comments: 21 days on, 7 days off Rx Instructions: Take 21 days on, 7 days off. Take last dose 04/14/23. Zyrtec 1 tab PO DAILY [place] 155 mg PO DAILY [place] 2 tab PRN PRN (Reason: Indigestion) Patient Comments: Dissolving tablets olanzapine 5 mg tablet 5 mg PO ONCE PM rosuvastatin 5 mg tablet 5 mg PO BEDTIME Patient Comments: TAKE 1 TABLET BY MOUTH ONCE DAILY Follow up/Referrals: Lycksell,Anibal, MD [Primary Care Provider] - 2 Weeks (please schedule a follow up with your primary care physcian within 2 weeks of discharge ) Visit Report/Discharge Packet Instructions: Tips on Coping With Anemia Related to Chemotherapy, Anemia Stand Alone Forms: Patient Portal/API, Stroke Signs & Symptoms Discharge Data Primary Care Provider: Anibal Chisholm
--- NOTE | 2023-04-09 14:47 | CM.DPNOTE ---
DC Note Discharge home today with family to assist and [facility]. MARGARITA Zavala, has kindly agreed to update [facility] with patient's discharge. No further CM needs identified. LYNN
--- NOTE | 2023-04-09 15:20 | PC.NURSE ---
Pt is dressed and ready for discharge home with Granddaughter. PC has been de-accessed. No tele in place. Went over d/c instructions with Pt-discussed d/c meds, time of last dose, reviewed stroke education, encouraged fluid intake to prevent constipation or dehydration. Pt was able to have a bowel movement this afternoon. Guaiac was negative. Pt denied further questions and will be taken out via w/c by INSURANCE VERIFICATION REP to POV with Family and all belongings.
== END 2023-04-09 15:56 | disposition home health service (06) | DRG 809 ==
LOC: ED 15:25 → AC 18:33
PROVIDERS: Admitting Provider Internal Medicine; Emergency Provider Emergency Medicine; PCP Family Medicine; Visit Provider Internal Medicine
DX: D61.810 Antineoplastic chemotherapy induced pancytopenia (principal); C79.51 Secondary malignant neoplasm of bone; T80.92XA Unspecified transfusion reaction, initial encounter; E03.9 Hypothyroidism, unspecified; E78.5 Hyperlipidemia, unspecified; T45.1X5A Adverse effect of antineoplastic and immunosuppressive drugs, initial encounter; C50.911 Malignant neoplasm of unspecified site of right female breast; K21.9 Gastro-esophageal reflux disease without esophagitis; Z66 Do not resuscitate
CPT/HCPCS: 0241U; 36415; 36430; 36591; 71045; 80048; 80053; 81003; 81015; 82550; 83690; 83735; 83880; 84484; 85007; 85014; 85018; 85025; 85610; 85730; 86078; 86850; 86900; 86901; 93005; 93010; 97116; 97162; 99284; P9016; C9113; J1642